=== PATIENT | male | born 1945 | race Caucasian/White ===

== ENCOUNTER 2020-06-13 07:41 | Outpatient (REF) | payer OTHER, SELFPAY ==
[2020-06-13 08:20] LABS: Hematocrit 42.4 % (42-52); Hemoglobin 13.9 g/dl (14.0-18.0); Mean Corpuscular HGB Conc 32.8 g/dl (31.0-36.0); Mean Corpuscular Hemoglobin 30.7 pg (27.0-33.0); Mean Corpuscular Volume 93.6 fL (80-98); Mean Platelet Volume 10.8 fL (9.4-12.4); Platelet Count 148 X10*3/uL (160-400); Red Blood Count 4.53 X10*6/uL (4.60-5.80); Red Cell Distribution Width 12.7 % (11.0-16.0); White Blood Count 6.2 X10*3/uL (4.8-10.8)
[2020-06-13 08:22] LABS: Glucose Urine UA NEG (NEG); Leukocyte Esterase Urine NEG (NEG); Nitrite Urine NEG (NEG); Specific Gravity - Urine 1.025 (1.005-1.025); Urine Blood TRACE (NEG); Urine Ketones NEG (NEG); Urine Protein NEG (NEG-TRACE)
[2020-06-13 08:23] LABS: Appearance Urine CLEAR; Color Urine YELLOW
[2020-06-13 08:33] LABS: RBC Urine 0-2 /HPF (0); WBC Urine 0 /HPF (0-4)
[2020-06-13 08:42] LABS: Alanine Aminotransferase 21 U/L (0-40); Albumin Level 4.1 g/dL (3.5-5.0); Alkaline Phosphatase 62 U/L (39-117); Anion Gap 13 (12-20); Aspartate Amino Transferase 22 U/L (5-37); Bilirubin Direct 0.6 mg/dL (0.0-0.5); Bilirubin Total 1.7 mg/dL (0.0-1.0); Blood Urea Nitrogen 13 mg/dL (9-16); Carbon Dioxide 28 mmol/L (22-29); Chloride 105 mmol/L (96-108); Cholesterol 144 mg/dL; Estimated Glomerular Filt Rate > 60; Glucose Random 110 mg/dL (60-115); HDL Cholesterol 45 mg/dL; LDL Cholesterol Calculated 89 mg/dl; Magnesium 2.2 mg/dL (1.6-2.6); Potassium 4.3 mmol/L (3.3-5.1); Sodium 142 mmol/L (135-145); Total Protein 6.8 g/dL (6.5-8.0); Triglycerides 51 mg/dL
[2020-06-13 09:06] LABS: Thyroid Stimulating Hormone 0.25 uIU/mL (0.32-4.0)
== END 2020-06-13 07:42 | disposition home or self-care (01) ==
LOC: HO.LAB 07:41
PROVIDERS: PCP Internal Medicine; Visit Provider Internal Medicine Cardiovascular Disease
DX: I10 Essential (primary) hypertension (principal); E66.3 Overweight; E78.2 Mixed hyperlipidemia; I48.20 Chronic atrial fibrillation, unspecified
CPT/HCPCS: 36415; 80051; 80061; 80076; 81001; 82565; 82947; 83735; 84443; 84520; 85027

== ENCOUNTER 2021-03-01 07:27 | Outpatient (REF) | payer OTHER, SELFPAY ==
[2021-03-01 07:39] LABS: MANUAL DIFF FLAG NO
[2021-03-01 07:52] LABS: Basophils Percent Auto 0.4 % (0-2); Eosinophils Absolute Auto 0.1 X10*3/uL (0.0-0.4); Eosinophils Percent Auto 1.5 % (0-4); Hematocrit 41.4 % (42.0-52.0); Hemoglobin 13.4 g/dl (14.0-18.0); Imm Gran Abs Auto 0.02 X10*3/uL (0.00-0.03); Imm Gran Pct Auto 0.3 % (0.0-0.4); Lymphocytes Absolute Auto 1.9 X10*3/uL (1.2-4.9); Lymphocytes Percent Auto 26.2 % (20-40); Mean Corpuscular HGB Conc 32.4 g/dl (31.0-36.0); Mean Corpuscular Hemoglobin 30.5 pg (27.0-33.0); Mean Corpuscular Volume 94.3 fL (80.0-98.0); Mean Platelet Volume 10.3 fL (9.4-12.4); Monocytes Absolute Auto 0.6 X10*3/uL (0.1-1.2); Monocytes Percent Auto 8.6 % (2-11); Neutrophils Absolute Auto 4.5 x10*3/uL (2.0-8.3); Platelet Count 147 X10*3/uL (160-400); Red Blood Count 4.39 X10*6/uL (4.60-5.80); White Blood Count 7.1 X10*3/uL (4.8-10.8)
[2021-03-01 08:20] LABS: Alanine Aminotransferase 21 U/L (0-40); Albumin Level 4.3 g/dL (3.5-5.0); Alkaline Phosphatase 61 U/L (39-117); Anion Gap 11 (12-20); Aspartate Amino Transferase 24 U/L (5-37); Bilirubin Total 1.4 mg/dL (0.0-1.0); Blood Urea Nitrogen 17 mg/dL (9-16); Calcium 9.7 mg/dL (8.4-10.2); Carbon Dioxide 30 mmol/L (22-29); Chloride 104 mmol/L (96-108); Cholesterol 161 mg/dL; Estimated Glomerular Filt Rate > 60; Glucose Fasting 105 mg/dL (60-99); HDL Cholesterol 46 mg/dL; LDL Cholesterol Calculated 101 mg/dl; Potassium 4.2 mmol/L (3.3-5.1); Sodium 141 mmol/L (135-145); Total Protein 7.1 g/dL (6.5-8.0); Triglycerides 71 mg/dL
[2021-03-01 08:42] LABS: Free T4 (Free Thyroxine) 1.16 ng/dL (0.71-1.85); Vitamin D 25-OH Total 34.5 ng/mL (>30)
[2021-03-01 09:06] LABS: Appearance Urine CLEAR; Color Urine YELLOW; Glucose Urine UA NEG (NEG); Leukocyte Esterase Urine NEG (NEG); Nitrite Urine NEG (NEG); UACC Culture Trigger NO; Urine Blood TRACE (NEG); Urine Ketones NEG (NEG); Urine Protein NEG (NEG-TRACE)
[2021-03-01 09:21] LABS: RBC Urine 0-2 /HPF (0); WBC Urine 0-2 /HPF (0-4)
== END 2021-03-01 07:28 | disposition home or self-care (01) ==
LOC: HO.LAB 07:27
PROVIDERS: PCP Internal Medicine; Visit Provider Internal Medicine
DX: Z00.00 Encounter for general adult medical examination without abnormal findings (principal); Z12.5 Encounter for screening for malignant neoplasm of prostate; R79.89 Other specified abnormal findings of blood chemistry; N40.1 Benign prostatic hyperplasia with lower urinary tract symptoms; R35.0 Frequency of micturition; I25.10 Atherosclerotic heart disease of native coronary artery without angina pectoris; I48.20 Chronic atrial fibrillation, unspecified; E78.00 Pure hypercholesterolemia, unspecified; E66.9 Obesity, unspecified; E55.9 Vitamin D deficiency, unspecified
CPT/HCPCS: 36415; 80053; 80061; 81001; 82306; 84153; 84439; 84443; 85025

== ENCOUNTER 2022-03-01 08:54 | Outpatient (REF) | payer OTHER, SELFPAY ==
[2022-03-01 09:07] LABS: MANUAL DIFF FLAG NO
[2022-03-01 09:24] LABS: Basophils Percent Auto 0.3 % (0-2); Eosinophils Absolute Auto 0.1 X10*3/uL (0.0-0.4); Hematocrit 41.5 % (42.0-52.0); Hemoglobin 13.3 g/dl (14.0-18.0); Imm Gran Abs Auto 0.02 X10*3/uL (0.00-0.03); Imm Gran Pct Auto 0.3 % (0.0-0.4); Lymphocytes Absolute Auto 1.2 X10*3/uL (1.2-4.9); Mean Corpuscular Hemoglobin 30.3 pg (27.0-33.0); Mean Corpuscular Volume 94.5 fL (80.0-98.0); Monocytes Absolute Auto 0.5 X10*3/uL (0.1-1.2); Monocytes Percent Auto 7.5 % (2-11); Neutrophils Absolute Auto 4.3 x10*3/uL (2.0-8.3); Neutrophils Percent Auto 70.9 % (45-73); Platelet Count 159 X10*3/uL (160-400); Red Blood Count 4.39 X10*6/uL (4.60-5.80); White Blood Count 6.1 X10*3/uL (4.8-10.8)
[2022-03-01 10:55] LABS: Appearance Urine Clear; Color Urine Yellow; Glucose Urine UA Negative (Negative); Leukocyte Esterase Urine Trace (Negative); Nitrite Urine Negative (Negative); PH 5.5 (5.0-9.0); UMIC TRIGGER UACC YES; Urine Blood Large (3+) (Negative); Urine Ketones Trace mg/dL (Negative); Urine Protein Trace mg/dL (Neg-Trace)
[2022-03-01 11:00] LABS: Bacteria Urine None Seen (None Seen); Hyaline Casts Urine 0-2 /LPF (0-2); RBC Urine >20 /HPF (0-2); Squamous Epithelial Cell Urine 0-2 /HPF (0-2); WBC Urine 0-5 /HPF (0-5)
[2022-03-01 11:27] LABS: Alanine Aminotransferase 13 U/L (0-40); Albumin Level 4.2 g/dL (3.5-5.0); Alkaline Phosphatase 59 U/L (39-117); Anion Gap 14 (12-20); Aspartate Amino Transferase 17 U/L (5-37); Bilirubin Total 1.7 mg/dL (0.0-1.0); Blood Urea Nitrogen 12 mg/dL (9-16); Calcium 9.6 mg/dL (8.4-10.2); Carbon Dioxide 29 mmol/L (22-29); Chloride 104 mmol/L (96-108); Cholesterol 150 mg/dL; Estimated Glomerular Filt Rate > 60; Glucose Fasting 103 mg/dL (60-99); HDL Cholesterol 44 mg/dL; LDL Cholesterol Calculated 92 mg/dl; Potassium 4.2 mmol/L (3.3-5.1); Sodium 143 mmol/L (135-145); Total Protein 6.9 g/dL (6.5-8.0); Triglycerides 72 mg/dL; Vitamin D 25-OH Total 38.2 ng/mL (>30)
[2022-03-01 12:04] LABS: Free T4 (Free Thyroxine) 1.16 ng/dL (0.71-1.85)
== END 2022-03-01 08:55 | disposition home or self-care (01) ==
LOC: HO.LAB 08:54
PROVIDERS: PCP Internal Medicine; Visit Provider Internal Medicine
DX: I10 Essential (primary) hypertension (principal); E78.00 Pure hypercholesterolemia, unspecified; E55.9 Vitamin D deficiency, unspecified
CPT/HCPCS: 36415; 80053; 80061; 81001; 82306; 84439; 84443; 85025

== ENCOUNTER 2022-10-20 05:57 | Outpatient (REF) | payer OTHER, SELFPAY ==
[2022-10-20 06:20] LABS: MANUAL DIFF FLAG NO
[2022-10-20 07:11] LABS: Basophils Percent Auto 0.5 % (0-2); Eosinophils Absolute Auto 0.1 X10*3/uL (0.0-0.4); Eosinophils Percent Auto 1.4 % (0-4); Hemoglobin 13.1 g/dl (14.0-18.0); Imm Gran Abs Auto 0.01 X10*3/uL (0.00-0.03); Imm Gran Pct Auto 0.2 % (0.0-0.4); Lymphocytes Absolute Auto 1.5 X10*3/uL (1.2-4.9); Lymphocytes Percent Auto 23.8 % (20-40); Mean Corpuscular HGB Conc 32.8 g/dl (31.0-36.0); Mean Corpuscular Hemoglobin 30.7 pg (27.0-33.0); Mean Corpuscular Volume 93.7 fL (80.0-98.0); Mean Platelet Volume 10.2 fL (9.4-12.4); Monocytes Absolute Auto 0.5 X10*3/uL (0.1-1.2); Monocytes Percent Auto 8.6 % (2-11); Neutrophils Absolute Auto 4.1 x10*3/uL (2.0-8.3); Neutrophils Percent Auto 65.5 % (45-73); Platelet Count 147 X10*3/uL (160-400); Red Blood Count 4.27 X10*6/uL (4.60-5.80); Red Cell Distribution Width 13.1 % (11.0-16.0); White Blood Count 6.3 X10*3/uL (4.8-10.8)
[2022-10-20 07:17] LABS: Estimated Average Glucose 108 mg/dL; Hemoglobin A1c % 5.4 %
[2022-10-20 08:06] LABS: Alanine Aminotransferase 19 U/L (0-40); Albumin Level 4.1 g/dL (3.5-5.0); Alkaline Phosphatase 67 U/L (39-117); Anion Gap 15 (12-20); Aspartate Amino Transferase 22 U/L (5-37); Bilirubin Total 1.7 mg/dL (0.0-1.0); Blood Urea Nitrogen 15 mg/dL (9-16); Calcium 9.5 mg/dL (8.4-10.2); Carbon Dioxide 26 mmol/L (22-29); Chloride 105 mmol/L (96-108); Cholesterol 143 mg/dL; Estimated Glomerular Filt Rate > 60; Glucose Fasting 101 mg/dL (60-99); HDL Cholesterol 51 mg/dL; LDL Cholesterol Calculated 80 mg/dl; Potassium 4.3 mmol/L (3.3-5.1); Sodium 142 mmol/L (135-145); Total Protein 7.1 g/dL (6.5-8.0); Triglycerides 60 mg/dL
[2022-10-20 08:20] LABS: Appearance Urine Clear; Color Urine Yellow; Glucose Urine UA Negative (Negative); Leukocyte Esterase Urine Negative (Negative); Nitrite Urine Negative (Negative); PH 6.5 (5.0-9.0); UMIC TRIGGER UACC YES; Urine Blood Trace (Negative); Urine Ketones Negative (Negative); Urine Protein Negative (Neg-Trace)
[2022-10-20 08:25] LABS: TSH reflex Free T4 0.28 uIU/mL (0.32-4.0)
[2022-10-20 08:35] LABS: Bacteria Urine None Seen (None Seen); Hyaline Casts Urine 0-2 /LPF (0-2); Squamous Epithelial Cell Urine 0-2 /HPF (0-2); WBC Urine 0-5 /HPF (0-5)
[2022-10-20 08:59] LABS: Free T4 (Free Thyroxine) 0.93 ng/dL (0.71-1.85)
== END 2022-10-20 05:58 | disposition home or self-care (01) ==
LOC: HO.LAB 05:57
PROVIDERS: PCP Internal Medicine; Visit Provider Internal Medicine
DX: I10 Essential (primary) hypertension (principal); R79.89 Other specified abnormal findings of blood chemistry; R73.01 Impaired fasting glucose; E78.00 Pure hypercholesterolemia, unspecified
CPT/HCPCS: 36415; 80053; 80061; 81001; 81003; 83036; 84439; 84443; 85025

== ENCOUNTER 2022-10-25 15:01 | Outpatient (AMB) | payer OTHER, SELFPAY ==
[2022-10-25 15:12] VITALS: BP 128/80; PULSE 53; O2SAT 93; BMI 34.8
--- NOTE | 2022-10-25 15:12 | A.OFFPC_ITS ---
Vital Signs 10/25/22 15:12 Height 5 ft 9 in Weight 235 lb 6 oz BMI 34.8 BP 128/80 Blood Pressure Location Lt brachial Position Sitting Pulse 53 Pulse Source Pulse Oximeter Pulse Oximetry (%) 93 Oxygen Delivery Method Room Air Intake Visit Reasons: 4 month f/u Insurance Legal Assistant Required: No Accompanied by: Self / Same As Patient Allergies No Known Allergies Allergy (Verified 10/25/22 15:42) Medication List - Last Reconciled 10/25/22 by Drew Mitchell MD apixaban 5 mg PO BID aspirin 81 mg PO DAILY metoprolol succinate ER 50 mg PO DAILY simvastatin 10 mg PO BEDTIME 90 days terazosin 5 mg PO DAILY 90 days Tobacco use date assessed: 10/25/22 Fall risk assessment: No Falls in past year Last assessed Fall Risk: 10/25/22 Dental Screening Dental Screen Date: 10/25/22 Did you have a dental visit in the last 12 months?: No Did you have a dental problem in the last 6 months where you did not have access to dental care?: No Was dental information given to patient?: No HPI 4 month f/u HPI Details Patient comes in today for his follow up visit States that he feels okay He denies any headaches or dizziness Denies any chest pains, no SOB No nausea/vomiting, no abdominal pain No change in bowel habits noted Needs his Simvastatin Rx refilled today Had his follow up labs done a few days ago - to discuss his results [facility] Medical History Aneurysm of the aortic arch, without rupture Arthralgia Benign prostatic hyperplasia with urinary frequency Chronic atrial fibrillation Coronary artery disease Erectile dysfunction Low TSH level Normal colonoscopy (~04/23/08) Obesity (BMI 30-39.9) Pure hypercholesterolemia Sick sinus syndrome Ureterolithiasis Vitamin D deficiency Surgical History Hx of colonoscopy (~04/2008) Hx of right inguinal hernia repair (~10/2015) S/P ICD (internal cardiac defibrillator) procedure Status post endovascular aneurysm repair (EVAR) (~01/18/22) Family History Mother Hypertension Father Kidney problem Social History Housing: House Alcohol intake: former Patient Tobacco Use Status: Never used Tobacco e-Cigarette/Vaping Use: Never Used Second Hand Smoke Exposure: Yes service: No Current occupational status: employed 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 1. Little interest or pleasure in doing things: not at all 2. Feeling down, depressed, or hopeless: not at all 3. Trouble falling or staying asleep, or sleeping too much: not at all 4. Feeling tired or having little energy: not at all 5. Poor appetite or overeating: not at all 6. Feeling bad about yourself - or that you are a failure or have let yourself or your family down: not at all 7. Trouble concentrating on things, such as reading the newspaper or watching television: not at all 8. Moving or speaking so slowly that other people could have noticed. Or the opposite - being so fidgety or restless that you have been moving around a lot more than usual: not at all 9. Thoughts that you would be better off or of hurting yourself in some way: not at all Total score: 0 Depression Screening Interpretation: Negative 38142 - PHQ-9 Billing: Yes Source: Developed by Drs. Kimani Hugo, Joleen Hardwick, Darryl Edward and colleagues, with an educational remington from [employer]. Thrive Questionnaire Date Thrive assessed: 06/24/22 I am a: Patient What is your living situation today?: I have a steady place to live Within the past 12 months, did the food you bought not last and you didn't have the money to get more?: Never true Within the past 12 months, did you worry whether your food would run out before you got money to buy more?: Never true Do you have trouble paying for medicines?: No Do you have trouble getting transportation to medical appointments?: No Do you have trouble paying your heating and electricity bill?: No Do you have trouble taking care of your child, family member or friend?: No Do you have trouble with day-to-day activities such as bathing, preparing meals, shopping, managing finances, etc.?: No Are you currently unemployed and looking for a job?: No Are you interested in more education?: No Please select the resources that you would like help with: None Currently or been in a relationship where the following occur: no concerns reported AUDIT C Alcohol Use Questionnaire (AUDIT-C) 1. How often do you have a drink containing alcohol?: Never Total Score: 0 Score Reviewed/Action Taken: Yes RUTH ANN-7 AMB Questionnaire RUTH ANN-7 Date RUTH ANN - 7 assessed: 10/25/22 Feeling nervous, anxious, or on edge: 0 = Not at all Not being able to stop or control worryin = Not at all Worrying too much about different things: 0 = Not at all Trouble relaxin = Not at all Being so restless that it is hard to sit still: 0 = Not at all Becoming easily annoyed or irritable: 0 = Not at all Feeling afraid as if something awful might happen: 0 = Not at all Total RUTH ANN-7 score (0-4 normal; 5-9 mild; 10-14 moderate; 15-21 severe): 0 Source: Developed by Drs. Kimani Hugo, Joleen Hardwick, Darryl Edward and colleagues, with an educational remington from [employer]. Review of Systems Const Denies fatigue, Denies fever(s) and Denies headache(s) ENT Denies dysphagia, Denies dizziness, Denies otalgia, Denies headache(s), Denies neck pain and Denies sore throat Card Denies chest pain, Denies palpitations and Denies dyspnea Resp Denies cough, Denies dyspnea and Denies wheezing GI Denies abdominal pain, Denies constipation, Denies dysphagia, Denies heartburn, Denies diarrhea, Denies nausea and Denies vomiting Denies hematuria, Denies dysuria and Reports urinary frequency (Rx helps) Musc Details: (+) some stiffness over the left neck area (at the base) - this is where he had his left carotid bypass last year Denies back pain, Denies arthralgias and Denies neck pain Skin/Breast Denies rash Neuro Denies dizziness and Denies headache(s) Endo Denies fatigue and Denies palpitations Aller/Immun Denies wheezing Physical exam (Primary Care) Vital Signs: Last Vital Signs Pulse 53 10/25/22 15:12 BP 128/80 10/25/22 15:12 Pulse Ox 93 10/25/22 15:12 Oxygen Delivery Method Room Air 10/25/22 15:12 BMI result Body Mass Index 34.8 Tobacco/Smoking Status: Tobacco use Status Tobacco use date assessed 10/25/22 10/25/22 15:20 Patient Tobacco Use Status Never used Tobacco 10/25/22 15:20 e-Cigarette/Vaping Use Never Used 10/25/22 15:20 PHQ-9: PHQ-9 Score PHQ-9: Total score 0 10/25/22 15:20 Depression Screening Interpretation: Negative Thrive Assessment: Date of Thrive Assessment Date Thrive assessed 06/24/22 10/25/22 15:20 Currently or been in a relationship where the following occur: no concerns repor mariaa Const General: no acute distress and alert HENMT Ears: TM's normal bilaterally and EAC's normal Throat: Yes posterior oropharynx normal and Yes tonsils normal Neck Neck: Yes no lymphadenopathy and Yes supple Resp Auscultation: clear to auscultation bilaterally, no rales and no wheezes Cardio Rate: regular rate Rhythm: abnormal rhythm irregularly irregular Heart sounds: no murmurs GI Palpation (GI): Soft to palpation and nontender Auscultation: normal bowel sounds Extrem General: Yes no clubbing, cyanosis or edema Results Reviewed Results Reviewed: Laboratory Tests 10/20/22 10/20/22 10/20/22 06:19 06:19 06:19 WBC 6.3 Hgb 13.1 L Hct 40.0 L Plt Count 147 L Sodium 142 Potassium 4.3 Creatinine 0.86 Estimated GFR > 60 Fasting Glucose 101 H Hemoglobin A1c % 5.4 Calcium 9.5 Total Bilirubin 1.7 H AST 22 ALT 19 Triglycerides 60 Cholesterol 143 LDL Cholesterol, Calc 80 HDL Cholesterol 51 TSH 0.28 L Free T4 0.93 Ur Specific [place] Urine Protein Urine Glucose (UA) Urine Blood 10/20/22 07:42 WBC Hgb Hct Plt Count Sodium Potassium Creatinine Estimated GFR Fasting Glucose Hemoglobin A1c % Calcium Total Bilirubin AST ALT Triglycerides Cholesterol LDL Cholesterol, Calc HDL Cholesterol TSH Free T4 Ur Specific [place] 1.010 Urine Protein Negative Urine Glucose (UA) Negative Urine Blood Trace H Assessment and Plan Assessment & Plan (1) Aneurysm of the aortic arch, without rupture: Comment: S/P left carotid-subclavian bypass and TEVAR repair of the aortic arch aneurysm plus stent graft by Aj on 01/18/2022 Code(s): I71.22 - Aneurysm of the aortic arch, without rupture Plan: S/P aortic arch aneurysm repair with stent graft in January 2022 Will be getting a repeat chest CT angiogram in about 6 months for follow up Follow up with vascular and cardiac surgery as scheduled Continue Aspirin 81 mg QD indefinitely (2) Coronary artery disease: Code(s): I25.10 - Atherosclerotic heart disease of [place] coronary artery without angina pectoris Qualifiers: Coronary Disease-Associated Artery/Lesion type: [place] artery [place] vs. transplanted heart: [place] heart Associated angina: without angina Qualified Code(s): I25.10 - Atherosclerotic heart disease of [place] coronary artery without angina pectoris Plan: Follow up with cardiology at [facility] as scheduled Continue Aspirin 81 mg QD (3) Chronic atrial fibrillation: Comment: S/P ICD placement; is currently rate-controlled Code(s): I48.20 - Chronic atrial fibrillation, unspecified Plan: Patient remains rate-controlled and asymptomatic from cardiac standpoint Continue Metoprolol ER 50 mg QD Continue Eliquis 5 mg BID for thromboembolism prophylaxis (4) Pure hypercholesterolemia: Code(s): E78.00 - Pure hypercholesterolemia, unspecified Plan: Results of his labs done a few days ago reviewed and discussed with patient Reinforced low cholesterol diet Continue Simvastatin 10 mg QD - Rx refilled Will recheck his labs again in 4 months for follow up (5) Vitamin D deficiency: Code(s): E55.9 - Vitamin D deficiency, unspecified Plan: Continue Vitamin D3 1000 units QD (6) Low TSH level: Code(s): R79.89 - Other specified abnormal findings of blood chemistry Plan: Patient's serum TSH level is again low/suppressed on his recent labs; free T4 level is normal Patient appears clinically euthyroid and his thyroid exam is normal with no nodu les palpated Will recheck TSH and free T4 level in 4 months; will also include total T3 If TSH is still significantly suppressed in a few months, will consider getting a thyroid scan on the patient (7) Erectile dysfunction: Code(s): N52.9 - Male erectile dysfunction, unspecified Qualifiers: Erectile dysfunction type: unspecified Qualified Code(s): N52.9 - Male erectile dysfunction, unspecified Plan: Continue Sildenafil 50 mg QD PRN Serum testosterone level was normal at 669 when checked back in September 2018 (8) Benign prostatic hyperplasia with urinary frequency: Code(s): N40.1 - Benign prostatic hyperplasia with lower urinary tract symptoms; R35.0 - Frequency of micturition Plan: Continue Terazosin 5 mg Q HS Follow up with urology as scheduled (9) Obesity (BMI 30-39.9): Code(s): E66.9 - Obesity, unspecified Plan: Reinforced diet/exercise as tolerated/lose weight Plan Follow up in 4 months Orders: Orders Comprehensive [place]. Panel Fast 4 Months E78.00 - Pure hypercholesterolemia, unspecified Lipid Panel 4 Months E78.00 - Pure hypercholesterolemia, unspecified Complete Blood Count Auto Diff 4 Months I10 - Essential (primary) hypertension TSH reflex Free T4 4 Months E78.00 - Pure hypercholesterolemia, unspecified Vitamin D 25-OH Total 4 Months E55.9 - Vitamin D deficiency, unspecified UA CC w/rflx Micro + Cult 4 Months R30.0 - Dysuria Triiodothyronine T3 Total 4 Months R79.89 - Other specified abnormal findings of blood chemistry Medications: Refilled simvastatin 10 mg PO BEDTIME 90 days 90 tabs 1RF Coding Level of Care Code Est Pt Level 4 (54150) Diagnoses Aneurysm of the aortic arch, without rupture I71.22 Coronary artery disease I25.10 Coronary Disease-Associated Artery/Lesion type: [place] artery [place] vs. transplanted heart: [place] heart Associated angina: without angina Chronic atrial fibrillation I48.20 Pure hypercholesterolemia E78.00 Vitamin D deficiency E55.9 Low TSH level R79.89 Erectile dysfunction N52.9 Erectile dysfunction type: unspecified Benign prostatic hyperplasia with urinary frequency N40.1; R35.0 Obesity (BMI 30-39.9) E66.9
== END 2022-10-25 15:47 | disposition home or self-care (01) ==
PROVIDERS: PCP Internal Medicine; Visit Provider Internal Medicine
DX: I71.22 Aneurysm of the aortic arch, without rupture (principal); I25.10 Atherosclerotic heart disease of native coronary artery without angina pectoris; I48.20 Chronic atrial fibrillation, unspecified; E55.9 Vitamin D deficiency, unspecified; E78.00 Pure hypercholesterolemia, unspecified; R79.89 Other specified abnormal findings of blood chemistry; N52.9 Male erectile dysfunction, unspecified; N40.1 Benign prostatic hyperplasia with lower urinary tract symptoms; R35.0 Frequency of micturition; E66.9 Obesity, unspecified
CPT/HCPCS: 99214

== ENCOUNTER 2023-03-03 15:15 | Outpatient (AMB) | payer OTHER, SELFPAY ==
[2023-03-03 15:27] VITALS: BP 116/70; PULSE 69; O2SAT 94; BMI 34.9
--- NOTE | 2023-03-03 15:27 | MHC.PC.OV ---
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 Accompanied by: Self / Same As Patient Allergies No Known Allergies Allergy (Verified 03/03/23 16:38) Medication List - Last Reconciled 03/03/23 by Drew Mitchell MD apixaban 5 mg PO BID aspirin 81 mg PO DAILY metoprolol succinate ER 50 mg PO DAILY simvastatin 10 mg PO BEDTIME 90 days terazosin 5 mg PO DAILY 90 days Tobacco use date assessed: 03/03/23 Fall risk assessment: No Falls in past year Last assessed Fall Risk: 03/03/23 Dental Screening Dental Screen Date: 03/03/23 Did you have a dental visit in the last 12 months?: No Did you have a dental problem in the last 6 months where you did not have access to dental care?: No Was dental information given to patient?: No HPI hyperlipidemia, CAD HPI Details Patient comes in today for his follow up visit States that he feels okay and has not had any problems since his last visit with me a few months ago States that he has been back to work for a while now - 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 - and that he has been doing fairly well at work He denies any headaches or dizziness Denies any chest pains, no SOB No nausea/vomiting, no abdominal pain No change in bowel habits noted Was not able to get his previously ordered labs done prior to his visit today [facility] Medical History Aneurysm of the aortic arch, without rupture Normal colonoscopy (~04/23/08) Sick sinus syndrome Obesity (BMI 30-39.9) Benign prostatic hyperplasia with urinary frequency Erectile dysfunction Vitamin D deficiency Arthralgia Ureterolithiasis Low TSH level Pure hypercholesterolemia Chronic atrial fibrillation Coronary artery disease Surgical History Status post endovascular aneurysm repair (EVAR) (~01/18/22) Hx of colonoscopy (~04/2008) S/P ICD (internal cardiac defibrillator) procedure Hx of right inguinal hernia repair (~10/2015) Family History Mother Hypertension Father Kidney problem Social History Housing: House Alcohol intake: former Patient Tobacco Use Status: Never used Tobacco e-Cigarette/Vaping Use: Never Used Second Hand Smoke Exposure: Yes service: No Current occupational status: employed 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 1. Little interest or pleasure in doing things: not at all 2. Feeling down, depressed, or hopeless: not at all 3. Trouble falling or staying asleep, or sleeping too much: not at all 4. Feeling tired or having little energy: not at all 5. Poor appetite or overeating: not at all 6. Feeling bad about yourself - or that you are a failure or have let yourself or your family down: not at all 7. Trouble concentrating on things, such as reading the newspaper or watching television: not at all 8. Moving or speaking so slowly that other people could have noticed. Or the opposite - being so fidgety or restless that you have been moving around a lot more than usual: not at all 9. Thoughts that you would be better off or of hurting yourself in some way: not at all Total score: 0 Depression Screening Interpretation: Negative Depression Screening Done: Yes 12931 - PHQ-9 Billing: Yes Source: Developed by Drs. Kimani Hugo, Joleen Hardwick, Darryl Edward and colleagues, with an educational remington from [employer]. Thrive Questionnaire Date Thrive assessed: 03/03/23 I am a: Patient What is your living situation today?: I have a steady place to live Within the past 12 months, did the food you bought not last and you didn't have the money to get more?: Never true Within the past 12 months, did you worry whether your food would run out before you got money to buy more?: Never true Do you have trouble paying for medicines?: No Do you have trouble getting transportation to medical appointments?: No Do you have trouble paying your heating and electricity bill?: No Do you have trouble taking care of your child, family member or friend?: No Do you have trouble with day-to-day activities such as bathing, preparing meals, shopping, managing finances, etc.?: No Are you currently unemployed and looking for a job?: No Are you interested in more education?: No Please select the resources that you would like help with: None Currently or been in a relationship where the following occur: no concerns reported AUDIT C Alcohol Use Questionnaire (AUDIT-C) 1. How often do you have a drink containing alcohol?: Never Total Score: 0 Score Reviewed/Action Taken: Yes RUTH ANN-7 AMB Questionnaire RUTH ANN-7 Date RUTH ANN - 7 assessed: 03/03/23 Feeling nervous, anxious, or on edge: 0 = Not at all Not being able to stop or control worryin = Not at all Worrying too much about different things: 0 = Not at all Trouble relaxin = Not at all Being so restless that it is hard to sit still: 0 = Not at all Becoming easily annoyed or irritable: 0 = Not at all Feeling afraid as if something awful might happen: 0 = Not at all Total RUTH ANN-7 score (0-4 normal; 5-9 mild; 10-14 moderate; 15-21 severe): 0 Source: Developed by Drs. Kimani Hugo, Joleen Hardwick, Darryl Edward and colleagues, with an educational remington from [employer]. Review of Systems Const Denies fatigue, Denies fever(s) and Denies headache(s) ENT Denies dysphagia, Denies dizziness, Denies otalgia, Denies headache(s), Denies neck pain, Denies odynophagia and Denies sore throat Card Denies chest pain, Denies palpitations and Denies dyspnea Resp Denies cough, Denies dyspnea and Denies wheezing GI Denies abdominal pain, Denies constipation, Denies dysphagia, Denies heartburn, Denies diarrhea, Denies nausea, Denies odynophagia and Denies vomiting Denies hematuria, Denies dysuria and Reports urinary frequency (Rx helping with symptoms) Musc Denies back pain, Denies arthralgias and Denies neck pain Skin/Breast Denies rash Neuro Denies dizziness and Denies headache(s) Endo Denies fatigue and Denies palpitations Aller/Immun Denies wheezing Physical exam (Primary Care) Vital Signs: Last Vital Signs Pulse 69 03/03/23 15:27 BP 116/70 03/03/23 15:27 Pulse Ox 94 03/03/23 15:27 Oxygen Delivery Method Room Air 03/03/23 15:27 BMI result Body Mass Index 34.9 Tobacco/Smoking Status: Tobacco use Status Tobacco use date assessed 03/03/23 03/03/23 15:36 Patient Tobacco Use Status Never used Tobacco 03/03/23 15:36 e-Cigarette/Vaping Use Never Used 03/03/23 15:36 PHQ-9: PHQ-9 Score PHQ-9: Total score 0 03/03/23 16:41 Depression Screening Interpretation: Negative Thrive Assessment: Date of Thrive Assessment Date Thrive assessed 03/03/23 03/03/23 15:36 Currently or been in a relationship where the following occur: no concerns reported Const General: no acute distress and alert HENMT Ears: TM's normal bilaterally and EAC's normal Throat: Yes posterior oropharynx normal and Yes tonsils normal Neck Neck: Yes no lymphadenopathy and Yes supple Resp Auscultation: clear to auscultation bilaterally, no rales and no wheezes Cardio Rate: regular rate Rhythm: abnormal rhythm irregularly irregular Heart sounds: no murmurs GI Palpation (GI): Soft to palpation and nontender Auscultation: normal bowel sounds Extrem General: Yes no clubbing, cyanosis or edema Assessment and Plan Assessment & Plan (1) Aneurysm of the aortic arch, without rupture: Comment: S/P left carotid-subclavian bypass and TEVAR repair of the aortic arch aneurysm plus stent graft by [facility]o on 01/18/2022 Code(s): I71.22 - Aneurysm of the aortic arch, without rupture Plan: S/P aortic arch aneurysm repair with stent graft in January 2022 Is supposed to get a repeat chest CT angiogram in about 6 months for follow up Follow up with vascular and cardiac surgery as scheduled Continue Aspirin 81 mg QD lifetime (2) Coronary artery disease: Code(s): I25.10 - Atherosclerotic heart disease of [place] coronary artery without angina pectoris Qualifiers: Coronary Disease-Associated Artery/Lesion type: [place] artery [place] vs. transplanted heart: [place] heart Associated angina: without angina Qualified Code(s): I25.10 - Atherosclerotic heart disease of [place] coronary artery without angina pectoris Plan: Follow up with cardiology at [facility] as scheduled Continue Aspirin 81 mg QD (3) Chronic atrial fibrillation: Comment: S/P ICD placement; is currently rate-controlled Code(s): I48.20 - Chronic atrial fibrillation, unspecified Plan: Patient remains rate-controlled and asymptomatic from a cardiac standpoint Continue Metoprolol ER 50 mg QD Continue Eliquis 5 mg BID for thromboembolism prophylaxis (4) Pure hypercholesterolemia: Code(s): E78.00 - Pure hypercholesterolemia, unspecified Plan: Was not able to get his previously ordered labs done recently Reinforced low cholesterol diet Continue Simvastatin 10 mg QD Will recheck his labs again in 4 months for follow up - will just have patient use his current orders (updated) for his next lab draw (5) Vitamin D deficiency: Code(s): E55.9 - Vitamin D deficiency, unspecified Plan: Continue Vitamin D3 1000 units QD (6) Low TSH level: Code(s): R79.89 - Other specified abnormal findings of blood chemistry Plan: Patient's serum TSH level was again low/suppressed on his most recent labs from a few months ago; free T4 level was normal Patient appeared clinically euthyroid and his thyroid exam was normal with no nodules palpated Will recheck his TSH and free T4 level in 4 months; will also include total T3 If his TSH is still significantly suppressed in a few months, will consider getting a thyroid scan on the patient (7) Erectile dysfunction: Code(s): N52.9 - Male erectile dysfunction, unspecified Qualifiers: Erectile dysfunction type: unspecified Qualified Code(s): N52.9 - Male erectile dysfunction, unspecified Plan: Continue Sildenafil 50 mg QD PRN Serum testosterone level was normal at 669 when checked back in September 2018 (8) Benign prostatic hyperplasia with urinary frequency: Code(s): N40.1 - Benign prostatic hyperplasia with lower urinary tract symptoms; R35.0 - Frequency of micturition Plan: Continue Terazosin 5 mg Q HS Follow up with urology as scheduled (9) Obesity (BMI 30-39.9): Code(s): E66.9 - Obesity, unspecified Plan: Reinforced diet/exercise as tolerated/lose weight Plan Follow up in 4 months Coding Level of Care Code Est Pt Level 3 (94456) Diagnoses Aneurysm of the aortic arch, without rupture I71.22 Coronary artery disease involving [place] coronary artery of [place] heart without angina pectoris I25.10 Coronary Disease-Associated Artery/Lesion type: [place] artery [place] vs. transplanted heart: [place] heart Associated angina: without angina Chronic atrial fibrillation I48.20 Pure hypercholesterolemia E78.00 Vitamin D deficiency E55.9 Low TSH level R79.89 Erectile dysfunction, unspecified erectile dysfunction type N52.9 Erectile dysfunction type: unspecified Benign prostatic hyperplasia with urinary frequency N40.1; R35.0 Obesity (BMI 30-39.9) E66.9
== END 2023-03-03 16:08 | disposition home or self-care (01) ==
PROVIDERS: PCP Internal Medicine; Visit Provider Internal Medicine
DX: I71.22 Aneurysm of the aortic arch, without rupture (principal); I48.20 Chronic atrial fibrillation, unspecified; E66.9 Obesity, unspecified; Z68.34 Body mass index [BMI] 34.0-34.9, adult; I25.10 Atherosclerotic heart disease of native coronary artery without angina pectoris; E78.00 Pure hypercholesterolemia, unspecified; E55.9 Vitamin D deficiency, unspecified; R79.89 Other specified abnormal findings of blood chemistry; N52.9 Male erectile dysfunction, unspecified; N40.1 Benign prostatic hyperplasia with lower urinary tract symptoms; R35.0 Frequency of micturition
CPT/HCPCS: 99213

== ENCOUNTER 2023-07-07 15:11 | Outpatient (AMB) | payer OTHER, SELFPAY ==
[2023-07-07 15:12] VITALS: BP 112/60; PULSE 49; O2SAT 95; BMI 34.7
--- NOTE | 2023-07-07 15:12 | A.OFFPC_ITS ---
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 Allergies No Known Allergies Allergy (Verified 07/07/23 15:49) Medication List - Last Reconciled 07/07/23 by Drew Mitchell MD apixaban 5 mg PO BID aspirin 81 mg PO DAILY metoprolol succinate ER 50 mg PO DAILY simvastatin 10 mg PO BEDTIME 90 days terazosin 5 mg PO DAILY 90 days Tobacco use date assessed: 07/07/23 Fall risk assessment: No Falls in past year Last assessed Fall Risk: 07/07/23 Dental Screening Dental Screen Date: 07/07/23 HPI CAD, hyperlipidemia, HTN HPI Details Patient comes in today for his follow up visit States that he has been experiencing sore throat, malaise and increased fatigue as well as nasal and sinus congestion for the past 3 days Reports that he has been coughing a lot lately - coughs up some greenish phlegm at times He denies any headaches or dizziness Denies any chest pains, no increased SOB although his chest feels congested lately No nausea/vomiting, no abdominal pain No change in bowel habits noted He has not had his follow up labs done yet - states that he can try to get them done tomorrow [facility] Medical History Aneurysm of the aortic arch, without rupture Normal colonoscopy (~04/23/08) Sick sinus syndrome Obesity (BMI 30-39.9) Benign prostatic hyperplasia with urinary frequency Erectile dysfunction Vitamin D deficiency Arthralgia Ureterolithiasis Low TSH level Pure hypercholesterolemia Chronic atrial fibrillation Coronary artery disease Surgical History Status post endovascular aneurysm repair (EVAR) (~01/18/22) Hx of colonoscopy (~04/2008) S/P ICD (internal cardiac defibrillator) procedure Hx of right inguinal hernia repair (~10/2015) Family History Mother Hypertension Father Kidney problem Social History Housing: House Alcohol intake: former Patient Tobacco Use Status: Never used Tobacco e-Cigarette/Vaping Use: Never Used Second Hand Smoke Exposure: Yes service: No Current occupational status: employed 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 1. Little interest or pleasure in doing things: not at all 2. Feeling down, depressed, or hopeless: not at all 3. Trouble falling or staying asleep, or sleeping too much: not at all 4. Feeling tired or having little energy: not at all 5. Poor appetite or overeating: not at all 6. Feeling bad about yourself - or that you are a failure or have let yourself or your family down: not at all 7. Trouble concentrating on things, such as reading the newspaper or watching television: not at all 8. Moving or speaking so slowly that other people could have noticed. Or the opposite - being so fidgety or restless that you have been moving around a lot more than usual: not at all 9. Thoughts that you would be better off or of hurting yourself in some way: not at all Total score: 0 Depression Screening Interpretation: Negative Depression Screening Done: Yes 52728 - PHQ-9 Billing: Yes Source: Developed by Drs. Kimani Hugo, Joleen Hardwick, Darryl Edward and colleagues, with an educational remington from [employer]. Thrive Questionnaire Date Thrive assessed: 07/07/23 I am a: Patient What is your living situation today?: I have a steady place to live Within the past 12 months, did the food you bought not last and you didn't have the money to get more?: Never true Within the past 12 months, did you worry whether your food would run out before you got money to buy more?: Never true Do you have trouble paying for medicines?: No Do you have trouble getting transportation to medical appointments?: No Do you have trouble paying your heating and electricity bill?: No Do you have trouble taking care of your child, family member or friend?: No Do you have trouble with day-to-day activities such as bathing, preparing meals, shopping, managing finances, etc.?: No Are you currently unemployed and looking for a job?: No Are you interested in more education?: No Please select the resources that you would like help with: None Currently or been in a relationship where the following occur: no concerns reported THRIVE Score: 0 AUDIT C Alcohol Use Questionnaire (AUDIT-C) 1. How often do you have a drink containing alcohol?: Never 3. How often do you have six or more drinks on one occasion?: Never Total Score: 0 Score Reviewed/Action Taken: Yes RUTH ANN-7 AMB Questionnaire RUTH ANN-7 Date RUTH ANN - 7 assessed: 07/07/23 Source: Developed by Drs. Kimani Hugo, Joleen Hardwick, Darryl Edward and colleagues, with an educational remington from [employer]. Review of Systems Const Denies chills, Reports fatigue, Denies fever(s), Denies headache(s) and Reports malaise ENT Denies dysphagia, Denies dizziness, Denies otalgia, Denies headache(s), Reports nasal congestion, Denies neck pain, Denies odynophagia, Denies sinus pain and Reports sore throat Card Denies chest pain, Denies palpitations and Denies dyspnea Resp Reports chest congestion, Reports cough (recurrent lately - coughs up thick greenish phlegm), Denies dyspnea and Denies wheezing GI Denies abdominal pain, Denies constipation, Denies dysphagia, Denies heartburn, Denies diarrhea, Denies nausea, Denies odynophagia and Denies vomiting Denies hematuria, Denies dysuria and Reports urinary frequency (Rx helps with symptoms) Musc Denies back pain, Reports myalgias, Denies arthralgias and Denies neck pain Skin/Breast Denies rash Neuro Denies dizziness and Denies headache(s) Endo Reports fatigue and Denies palpitations Aller/Immun Denies wheezing Physical exam (Primary Care) Vital Signs: Last Vital Signs Pulse 49 L 07/07/23 15:12 BP 112/60 07/07/23 15:12 Pulse Ox 95 07/07/23 15:12 Oxygen Delivery Method Room Air 07/07/23 15:12 BMI result Body Mass Index 34.7 Tobacco/Smoking Status: Tobacco use Status Tobacco use date assessed 07/07/23 07/07/23 15:14 Patient Tobacco Use Status Never used Tobacco 07/07/23 15:14 e-Cigarette/Vaping Use Never Used 07/07/23 15:14 Depression Screening Interpretation: Negative Thrive Assessment: Date of Thrive Assessment Date Thrive assessed 07/07/23 07/07/23 15:14 Currently or been in a relationship where the following occur: no concerns reported Const General: no acute distress and alert HENMT Ears: TM's normal bilaterally and EAC's normal Throat: Yes tonsils normal and Yes posterior oropharynx abnormal ((+) erythema of the posterior pharynx) Neck Neck: Yes no lymphadenopathy and Yes supple Thyroid: Thyroid normal Resp Auscultation: no crackles, no rales, rhonchi (occasional) throughout, no wheezes and diminished lung sounds (slightly) bilateral Cardio Rate: regular rate Rhythm: abnormal rhythm irregularly irregular Heart sounds: no murmurs GI Palpation (GI): Soft to palpation and nontender Auscultation: normal bowel sounds General: Yes no CVA tenderness Back/Spine/Pelvis Back: no CVA tenderness Skin Rashes: no rashes Extrem General: Yes no clubbing, cyanosis or edema Assessment and Plan Assessment & Plan (1) Respiratory tract infection: Code(s): J98.8 - Other specified respiratory disorders Plan: Will send patient to the lab to check for serologies (flu/RSV/COVID) for further evaluation Will start him empirically on Azithromycin QD x 5 days for now (2) Aneurysm of the aortic arch, without rupture: Comment: S/P left carotid-subclavian bypass and TEVAR repair of the aortic arch aneurysm plus stent graft by Aj on 01/18/2022 Code(s): I71.22 - Aneurysm of the aortic arch, without rupture Plan: S/P aortic arch aneurysm repair with stent graft in January 2022 He was supposed to get a repeat chest CT angiogram in about 6 months for follow up - not sure if his business continuity coordinator did or not and patient could not tell us also (states that he does not remember) Follow up with vascular and cardiac surgery as scheduled Continue Aspirin 81 mg QD lifetime (3) Coronary artery disease: Code(s): I25.10 - Atherosclerotic heart disease of [place] coronary artery without angina pectoris Qualifiers: Coronary Disease-Associated Artery/Lesion type: [place] artery [place] vs. transplanted heart: [place] heart Associated angina: without angina Qualified Code(s): I25.10 - Atherosclerotic heart disease of [place] coronary artery without angina pectoris Plan: Follow up with cardiology at [facility] as scheduled Continue Aspirin 81 mg QD (4) Chronic atrial fibrillation: Comment: S/P ICD placement; is currently rate-controlled Code(s): I48.20 - Chronic atrial fibrillation, unspecified Plan: Patient remains rate-controlled and asymptomatic from a cardiac standpoint Continue Metoprolol ER 50 mg QD Continue Eliquis 5 mg BID for thromboembolism prophylaxis (5) Pure hypercholesterolemia: Code(s): E78.00 - Pure hypercholesterolemia, unspecified Plan: He is still not able to get his previously ordered labs done recently - have advised him to get these done JODEE States that he will go tomorrow morning Reinforced low cholesterol diet Continue Simvastatin 10 mg QD Will recheck his labs and fasting lipids again in 4 months for follow up (6) Vitamin D deficiency: Code(s): E55.9 - Vitamin D deficiency, unspecified Plan: Continue Vitamin D3 1000 units QD (7) Low TSH level: Code(s): R79.89 - Other specified abnormal findings of blood chemistry Plan: Patient's serum TSH level was again low/suppressed when checked last year; free T4 level was normal Patient appeared clinically euthyroid and his thyroid exam was normal with no nodules palpated Will recheck his TSH and free T4 level and will also include total T3 If his TSH is still significantly suppressed, will consider getting a thyroid scan (8) Erectile dysfunction: Code(s): N52.9 - Male erectile dysfunction, unspecified Qualifiers: Erectile dysfunction type: unspecified Qualified Code(s): N52.9 - Male erectile dysfunction, unspecified Plan: Continue Sildenafil 50 mg QD PRN Serum testosterone level was normal at 669 when checked back in September 2018 (9) Benign prostatic hyperplasia with urinary frequency: Code(s): N40.1 - Benign prostatic hyperplasia with lower urinary tract symptoms; R35.0 - Frequency of micturition Plan: Continue Terazosin 5 mg Q HS Follow up with urology as scheduled (10) Obesity (BMI 30-39.9): Code(s): E66.9 - Obesity, unspecified Plan: Reinforced diet/exercise as tolerated/lose weight Plan Follow up in 4 months Orders: Orders Complete Blood Count Auto Diff 4 Months D64.9 - Anemia, unspecified Comprehensive [place]. Panel Fast 4 Months E78.00 - Pure hypercholesterolemia, unspecified SARS-CoV2/FLU/RSV Today J98.8 - Other specified respiratory disorders Lipid Panel 4 Months E78.00 - Pure hypercholesterolemia, unspecified Thyroid Stimulating Hormone 4 Months R79.89 - Other specified abnormal findings of blood chemistry Free T4 (Free Thyroxine) 4 Months R79.89 - Other specified abnormal findings of blood chemistry Medications: New azithromycin take 500 mg today (day 1), then 250 mg for 4 days (days 2-5) PO 6 tabs 0RF Coding Level of Care Code Est Pt Level 4 (01691) Diagnoses Respiratory tract infection J98.8 Aneurysm of the aortic arch, without rupture I71.22 Coronary artery disease involving [place] coronary artery of [place] heart without angina pectoris I25.10 Coronary Disease-Associated Artery/Lesion type: [place] artery [place] vs. transplanted heart: [place] heart Associated angina: without angina Chronic atrial fibrillation I48.20 Pure hypercholesterolemia E78.00 Vitamin D deficiency E55.9 Low TSH level R79.89 Erectile dysfunction, unspecified erectile dysfunction type N52.9 Erectile dysfunction type: unspecified Benign prostatic hyperplasia with urinary frequency N40.1; R35.0 Obesity (BMI 30-39.9) E66.9
== END 2023-07-07 15:55 | disposition home or self-care (01) ==
PROVIDERS: PCP Internal Medicine; Visit Provider Internal Medicine
DX: J98.8 Other specified respiratory disorders (principal); I71.22 Aneurysm of the aortic arch, without rupture; I25.10 Atherosclerotic heart disease of native coronary artery without angina pectoris; I48.20 Chronic atrial fibrillation, unspecified; E78.00 Pure hypercholesterolemia, unspecified; E55.9 Vitamin D deficiency, unspecified; R79.89 Other specified abnormal findings of blood chemistry; N52.9 Male erectile dysfunction, unspecified; N40.1 Benign prostatic hyperplasia with lower urinary tract symptoms; R35.0 Frequency of micturition; E66.9 Obesity, unspecified
CPT/HCPCS: 99214

== ENCOUNTER 2023-07-08 07:11 | Outpatient (REF) | payer OTHER, SELFPAY ==
[2023-07-08 07:42] LABS: MANUAL DIFF FLAG NO
[2023-07-08 08:54] LABS: Appearance Urine Clear; Color Urine Dark Yellow; Glucose Urine UA Negative (Negative); Leukocyte Esterase Urine Trace (Negative); Nitrite Urine Negative (Negative); Specific Gravity - Urine 1.015 (1.005-1.025); UMIC TRIGGER UACC YES; Urine Blood Small (1+) (Negative); Urine Ketones Negative (Negative); Urine Protein 30 (1+) mg/dL (Neg-Trace)
[2023-07-08 09:00] LABS: Bacteria Urine None Seen (None Seen); Hyaline Casts Urine 0-2 /LPF (0-2); Squamous Epithelial Cell Urine 0-2 /HPF (0-2); WBC Urine 0-5 /HPF (0-5)
[2023-07-08 09:03] LABS: Basophils Percent Auto 0.3 % (0-2); Eosinophils Percent Auto 0.3 % (0-4); Hematocrit 38.7 % (42.0-52.0); Hemoglobin 12.7 g/dl (14.0-18.0); Imm Gran Abs Auto 0.03 X10*3/uL (0.00-0.03); Imm Gran Pct Auto 0.4 % (0.0-0.4); Lymphocytes Absolute Auto 1.3 X10*3/uL (1.2-4.9); Lymphocytes Percent Auto 16.6 % (20-40); Mean Corpuscular HGB Conc 32.8 g/dl (31.0-36.0); Mean Corpuscular Hemoglobin 31.8 pg (27.0-33.0); Mean Corpuscular Volume 96.8 fL (80.0-98.0); Monocytes Absolute Auto 0.8 X10*3/uL (0.1-1.2); Monocytes Percent Auto 10.9 % (2-11); Neutrophils Absolute Auto 5.4 x10*3/uL (2.0-8.3); Neutrophils Percent Auto 71.5 % (45-73); Platelet Count 128 X10*3/uL (160-400); White Blood Count 7.6 X10*3/uL (4.8-10.8)
[2023-07-08 09:32] LABS: Influenza A PCR NEGATIVE (Negative); Influenza B PCR NEGATIVE (Negative); Resp Syncy Virus RNA Qual PCR NEGATIVE (Negative); SARS COV2 PCR INHOUSE NEGATIVE (Negative)
[2023-07-08 09:52] LABS: Alanine Aminotransferase 14 U/L (0-40); Alkaline Phosphatase 59 U/L (39-117); Anion Gap 10 (12-20); Aspartate Amino Transferase 16 U/L (5-37); Bilirubin Total 2.3 mg/dL (0.0-1.0); Blood Urea Nitrogen 11 mg/dL (9-16); Calcium 9.2 mg/dL (8.4-10.2); Carbon Dioxide 32 mmol/L (22-29); Chloride 103 mmol/L (96-108); Cholesterol 130 mg/dL (<200); Estimated Glomerular Filt Rate > 60; Glucose Fasting 107 mg/dL (60-99); HDL Cholesterol 50 mg/dL (>40); LDL Cholesterol Calculated 70 mg/dL (<100); Potassium 3.9 mmol/L (3.3-5.1); Sodium 141 mmol/L (135-145); TSH reflex Free T4 0.17 uIU/mL (0.32-4.0); Total Protein 7.1 g/dL (6.5-8.0); Triglycerides 51 mg/dL (<150); Vitamin D 25-OH Total 34.2 ng/mL (>30)
[2023-07-08 10:53] LABS: Free T4 (Free Thyroxine) 0.88 ng/dL (0.71-1.85)
[2023-07-09 23:35] LABS: Triiodothyronine T3 Total 85 ng/dL (76-181)
== END 2023-07-08 07:12 | disposition home or self-care (01) ==
LOC: HO.LAB 07:11
PROVIDERS: PCP Internal Medicine; Visit Provider Internal Medicine
DX: I10 Essential (primary) hypertension (principal); E78.00 Pure hypercholesterolemia, unspecified; J98.8 Other specified respiratory disorders; R79.89 Other specified abnormal findings of blood chemistry; E55.9 Vitamin D deficiency, unspecified; R30.0 Dysuria
CPT/HCPCS: 0241U; 80053; 80061; 81001; 82306; 84439; 84443; 84480; 85025

== ENCOUNTER 2023-11-22 14:58 | Outpatient (AMB) | payer OTHER, SELFPAY ==
[2023-11-22 15:05] VITALS: BP 126/80; PULSE 55; O2SAT 93; BMI 35.3
--- NOTE | 2023-11-22 15:05 | A.OFFPC_ITS ---
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 Required: No Accompanied by: Self / Same As Patient Allergies No Known Allergies Allergy (Verified 11/22/23 16:22) Medication List - Last Reconciled 11/22/23 by Drew Mitchell MD apixaban 5 mg PO BID aspirin 81 mg PO DAILY metoprolol succinate ER 50 mg PO DAILY simvastatin 10 mg PO BEDTIME 90 days terazosin 5 mg PO DAILY 90 days Tobacco use date assessed: 11/22/23 Fall risk assessment: No Falls in past year Last assessed Fall Risk: 11/22/23 Dental Screening Dental Screen Date: 11/22/23 Did you have a dental visit in the last 12 months?: Yes Did you have a dental problem in the last 6 months where you did not have access to dental care?: No Was dental information given to patient?: Patient has dentist HPI [facility] f/u HPI Details Patient comes in today for his follow up visit States that he's had an itchy rash over the back of his neck for the past 2 weeks He has tried applying some Calamine lotion over it lately but he has not noticed any significant improvement of the rash with Calamine lotion Also relates (+) increasing pain over his right heel for the past couple of weeks - notes that the pain feels worse with weight-bearing and with walking He denies any recent injury or trauma to his foot or heel States that he feels okay otherwise He denies any headaches or dizziness Denies any chest pains, no SOB No nausea/vomiting, no abdominal pain No change in bowel habits noted He was not able to get his labs done prior to his visit today [facility] Medical History Aneurysm of the aortic arch, without rupture Normal colonoscopy (~04/23/08) Sick sinus syndrome Obesity (BMI 30-39.9) Benign prostatic hyperplasia with urinary frequency Erectile dysfunction Vitamin D deficiency Arthralgia Ureterolithiasis Low TSH level Pure hypercholesterolemia Chronic atrial fibrillation Coronary artery disease Surgical History Status post endovascular aneurysm repair (EVAR) (~01/18/22) Hx of colonoscopy (~04/2008) S/P ICD (internal cardiac defibrillator) procedure Hx of right inguinal hernia repair (~10/2015) Family History Mother Hypertension Father Kidney problem Social History Housing: House Alcohol intake: former Patient Tobacco Use Status: Never used Tobacco e-Cigarette/Vaping Use: Never Used Second Hand Smoke Exposure: Yes service: No Current occupational status: employed 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 1. Little interest or pleasure in doing things: not at all 2. Feeling down, depressed, or hopeless: not at all 3. Trouble falling or staying asleep, or sleeping too much: not at all 4. Feeling tired or having little energy: not at all 5. Poor appetite or overeating: not at all 6. Feeling bad about yourself - or that you are a failure or have let yourself or your family down: not at all 7. Trouble concentrating on things, such as reading the newspaper or watching television: not at all 8. Moving or speaking so slowly that other people could have noticed. Or the opposite - being so fidgety or restless that you have been moving around a lot more than usual: not at all 9. Thoughts that you would be better off or of hurting yourself in some way: not at all Total score: 0 Depression Screening Interpretation: Negative Depression Screening Done: Yes 60097 - PHQ-9 Billing: Yes Source: Developed by Drs. Kimani Hugo, Joleen Hardwick, Darryl Edward and colleagues, with an educational remington from [employer]. Thrive Questionnaire Date Thrive assessed: 11/22/23 I am a: Patient What is your living situation today?: I have a steady place to live Within the past 12 months, did the food you bought not last and you didn't have the money to get more?: Never true Within the past 12 months, did you worry whether your food would run out before you got money to buy more?: Never true Do you have trouble paying for medicines?: No Do you have trouble getting transportation to medical appointments?: No Do you have trouble paying your heating and electricity bill?: No Do you have trouble taking care of your child, family member or friend?: No Do you have trouble with day-to-day activities such as bathing, preparing meals, shopping, managing finances, etc.?: No Are you currently unemployed and looking for a job?: No Are you interested in more education?: No Please select the resources that you would like help with: None Currently or been in a relationship where the following occur: No concerns reported THRIVE Score: 0 AUDIT C Alcohol Use Questionnaire (AUDIT-C) 1. How often do you have a drink containing alcohol?: Never 3. How often do you have six or more drinks on one occasion?: Never Total Score: 0 Score Reviewed/Action Taken: Yes RUTH ANN-7 AMB Questionnaire RUTH ANN-7 Date RUTH ANN - 7 assessed: 11/22/23 Feeling nervous, anxious, or on edge: 0 = Not at all Not being able to stop or control worryin = Not at all Worrying too much about different things: 0 = Not at all Trouble relaxin = Not at all Being so restless that it is hard to sit still: 0 = Not at all Becoming easily annoyed or irritable: 0 = Not at all Feeling afraid as if something awful might happen: 0 = Not at all Total RUTH ANN-7 score (0-4 normal; 5-9 mild; 10-14 moderate; 15-21 severe): 0 Source: Developed by Drs. Kimani Hugo, Joleen Hardwick, Darryl Edward and colleagues, with an educational remington from [employer]. Review of Systems Const Denies chills, Denies fatigue, Denies fever(s) and Denies headache(s) ENT Denies dysphagia, Denies dizziness, Denies otalgia, Denies headache(s), Denies neck pain, Denies odynophagia, Denies sinus pain and Denies sore throat Card Denies chest pain, Denies palpitations and Denies dyspnea Resp Denies chest congestion, Denies cough, Denies dyspnea and Denies wheezing GI Denies abdominal pain, Denies constipation, Denies dysphagia, Denies heartburn, Denies diarrhea, Denies nausea, Denies odynophagia and Denies vomiting Denies hematuria, Denies dysuria and Reports urinary frequency (Rx helps with symptoms) Musc Details: (+) pain over the right heel area - see HPI Denies back pain, Denies arthralgias and Denies neck pain Skin/Breast Reports rash (over the back of the neck - see HPI) Neuro Denies dizziness and Denies headache(s) Endo Denies fatigue and Denies palpitations Aller/Immun Denies wheezing Physical exam (Primary Care) Vital Signs: Last Vital Signs Pulse 55 11/22/23 15:05 BP 126/80 11/22/23 15:05 Pulse Ox 93 11/22/23 15:05 Oxygen Delivery Method Room Air 11/22/23 15:05 BMI result Body Mass Index 35.3 Tobacco/Smoking Status: Tobacco use Status Tobacco use date assessed 11/22/23 11/22/23 15:07 Patient Tobacco Use Status Never used Tobacco 11/22/23 15:07 e-Cigarette/Vaping Use Never Used 11/22/23 15:07 PHQ-9: PHQ-9 Score PHQ-9: Total score 0 11/22/23 16:23 Depression Screening Interpretation: Negative Thrive Assessment: Date of Thrive Assessment Date Thrive assessed 11/22/23 11/22/23 15:07 Currently or been in a relationship where the following occur: No concerns reported Const General: no acute distress and alert HENMT Ears: TM's normal bilaterally and EAC's normal Throat: Yes posterior oropharynx normal and Yes tonsils normal Neck Neck: Yes no lymphadenopathy and Yes supple Thyroid: Thyroid normal Resp Auscultation: clear to auscultation bilaterally, no crackles, no rales and no wheezes Cardio Rate: regular rate Rhythm: abnormal rhythm irregularly irregular Heart sounds: no murmurs GI Palpation (GI): Soft to palpation and nontender Auscultation: normal bowel sounds General: Yes no CVA tenderness Back/Spine/Pelvis Back: no CVA tenderness Thoracic/Lumbar Spine: No lumbar spinal tenderness Skin Rashes: rashes noted (erythematous, over the length of the back of the neck) Extrem General: Yes no clubbing, cyanosis or edema Right lower extremity: foot Details: tenderness Location: of the calcaneus Details: point tenderness Assessment and Plan Assessment & Plan (1) Chronic atrial fibrillation: Comment: S/P ICD placement; is currently rate-controlled Code(s): I48.20 - Chronic atrial fibrillation, unspecified Plan: Patient remains rate-controlled and asymptomatic from a cardiac standpoint Continue Metoprolol ER 50 mg QD Continue Eliquis 5 mg BID for thromboembolism prophylaxis (2) Coronary artery disease: Code(s): I25.10 - Atherosclerotic heart disease of apache coronary artery without angina pectoris Qualifiers: Coronary Disease-Associated Artery/Lesion type: apache artery Habematolel vs. transplanted heart: apache heart Associated angina: without angina Qualified Code(s): I25.10 - Atherosclerotic heart disease of apache coronary artery without angina pectoris Plan: Follow up with cardiology at [facility] as scheduled Continue Aspirin 81 mg QD (3) Aneurysm of the aortic arch, without rupture: Comment: S/P left carotid-subclavian bypass and TEVAR repair of the aortic arch aneurysm plus stent graft by Aj on 01/18/2022 Code(s): I71.22 - Aneurysm of the aortic arch, without rupture Plan: S/P aortic arch aneurysm repair with stent graft in January 2022 Continue Aspirin 81 mg QD lifetime Follow up with vascular and cardiac surgery as scheduled (4) Pure hypercholesterolemia: Code(s): E78.00 - Pure hypercholesterolemia, unspecified Plan: He was not able to get his previously ordered labs done yet - have advised him to get these done JODEE Reinforced low cholesterol diet Continue Simvastatin 10 mg QD Will recheck his labs and fasting lipids in 4 months for follow up (5) Vitamin D deficiency: Code(s): E55.9 - Vitamin D deficiency, unspecified Plan: Continue Vitamin D3 1000 units QD (6) Pain of right heel: Code(s): M79.671 - Pain in right foot Plan: Will send patient for x-rays of the right foot/heel for further evaluation Have advised patient that his right heel pain is likely due to heel spurs; will go ahead and refer him to podiatry for further evaluation and management (7) Rash of neck: Code(s): R21 - Rash and other nonspecific skin eruption Plan: Discussed that this is likely a dermatitis, which is why Calamine lotion only helps symptomatically but is not enough to clear this up Will start him on Mometasone 0.1% cream apply to rash QD PRN (8) Low TSH level: Code(s): R79.89 - Other specified abnormal findings of blood chemistry Plan: Patient's serum TSH level was again low/suppressed when checked last year; free T4 level was normal Patient appeared clinically euthyroid and his thyroid exam was normal with no nodules palpated Will recheck his TSH and free T4 level and will also include total T3 If his TSH is still significantly suppressed, will consider getting a thyroid scan (9) Erectile dysfunction: Code(s): N52.9 - Male erectile dysfunction, unspecified Qualifiers: Erectile dysfunction type: unspecified Qualified Code(s): N52.9 - Male erectile dysfunction, unspecified Plan: Continue Sildenafil 50 mg QD PRN Serum testosterone level was normal at 669 when checked back in September 2018 (10) Benign prostatic hyperplasia with urinary frequency: Code(s): N40.1 - Benign prostatic hyperplasia with lower urinary tract symptoms; R35.0 - Frequency of micturition Plan: Continue Terazosin 5 mg Q HS Follow up with urology as scheduled (11) Obesity (BMI 30-39.9): Code(s): E66.9 - Obesity, unspecified Plan: Reinforced diet/exercise as tolerated/lose weight Plan Follow up in 4 months Orders: Orders Complete Blood Count Auto Diff 4 Months D64.9 - Anemia, unspecified Comprehensive [place]. Panel Fast 4 Months E78.00 - Pure hypercholesterolemia, unspecified Lipid Panel 4 Months E78.00 - Pure hypercholesterolemia, unspecified UA CC w/rflx Micro + Cult 4 Months R30.0 - Dysuria TSH reflex Free T4 4 Months E78.00 - Pure hypercholesterolemia, unspecified Vitamin D 25-OH Total 4 Months E55.9 - Vitamin D deficiency, unspecified XR foot RT min 3V 11/22/23 M79.671 - Pain in right foot Referrals Podiatry Referral M79.671 - Pain in right foot Medications: New mometasone 0.1% 1 appl topical DAILY PRN 45 grams 0RF rash Coding Level of Care Code Est Pt Level 4 ([id number]) Complex EM visit Add On G2211 Diagnoses Chronic atrial fibrillation I48.20 Coronary artery disease involving apache coronary artery of apache heart without angina pectoris I25.10 Coronary Disease-Associated Artery/Lesion type: apache artery Habematolel vs. transplanted heart: apache heart Associated angina: without angina Aneurysm of the aortic arch, without rupture I71.22 Pure hypercholesterolemia E78.00 Vitamin D deficiency E55.9 Pain of right heel M79.671 Rash of neck R21 Low TSH level R79.89 Erectile dysfunction, unspecified erectile dysfunction type N52.9 Erectile dysfunction type: unspecified Benign prostatic hyperplasia with urinary frequency N40.1; R35.0 Obesity (BMI 30-39.9) E66.9
== END 2023-11-22 16:31 | disposition home or self-care (01) ==
PROVIDERS: PCP Internal Medicine; Visit Provider Internal Medicine
DX: I48.20 Chronic atrial fibrillation, unspecified (principal); I25.10 Atherosclerotic heart disease of native coronary artery without angina pectoris; I71.22 Aneurysm of the aortic arch, without rupture; E78.00 Pure hypercholesterolemia, unspecified; E55.9 Vitamin D deficiency, unspecified; M79.671 Pain in right foot; R21 Rash and other nonspecific skin eruption; R79.89 Other specified abnormal findings of blood chemistry; N52.9 Male erectile dysfunction, unspecified; N40.1 Benign prostatic hyperplasia with lower urinary tract symptoms; R35.0 Frequency of micturition
CPT/HCPCS: 99214

== ENCOUNTER 2023-11-24 06:45 | Outpatient (REF) | payer OTHER, SELFPAY ==
--- NOTE | ~2023-11-24 | XR_ITS ---
EXAMINATION: XR FOOT, RIGHT CLINICAL INFORMATION: Right foot pain COMPARISON: None available. TECHNIQUE: AP, lateral, and oblique views of the right foot. FINDINGS: Small heel spur. Mild degenerative change of the midfoot with small dorsal osteophytes. Moderate 1st MTP joint osteoarthritis. No fracture or malalignment. Mild to moderate osteoarthritis of the interphalangeal joints. XR/XR foot RT min 3V IMPRESSION: Small heel spur. 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 Electronically signed by: Bobo Darling MD 11/30/2023 08:35 AM EDT
[2023-11-24 06:55] LABS: MANUAL DIFF FLAG NO
[2023-11-24 07:14] LABS: Basophils Percent Auto 0.5 % (0-2); Eosinophils Absolute Auto 0.1 X10*3/uL (0.0-0.4); Eosinophils Percent Auto 1.3 % (0-4); Hemoglobin 12.7 g/dl (14.0-18.0); Imm Gran Abs Auto 0.02 X10*3/uL (0.00-0.03); Imm Gran Pct Auto 0.3 % (0.0-0.4); Lymphocytes Absolute Auto 1.4 X10*3/uL (1.2-4.9); Lymphocytes Percent Auto 22.8 % (20-40); Mean Corpuscular HGB Conc 32.6 g/dl (31.0-36.0); Mean Corpuscular Hemoglobin 31.3 pg (27.0-33.0); Mean Corpuscular Volume 96.1 fL (80.0-98.0); Mean Platelet Volume 10.2 fL (9.4-12.4); Monocytes Absolute Auto 0.5 X10*3/uL (0.1-1.2); Monocytes Percent Auto 8.6 % (2-11); Neutrophils Absolute Auto 4.1 x10*3/uL (2.0-8.3); Neutrophils Percent Auto 66.5 % (45-73); Platelet Count 135 X10*3/uL (160-400); Red Blood Count 4.06 X10*6/uL (4.60-5.80); Red Cell Distribution Width 13.2 % (11.0-16.0); White Blood Count 6.1 X10*3/uL (4.8-10.8)
[2023-11-24 07:32] LABS: Appearance Urine Clear; Color Urine Yellow; Glucose Urine UA Negative (Negative); Leukocyte Esterase Urine Negative (Negative); Nitrite Urine Negative (Negative); PH 5.5 (5.0-9.0); UMIC TRIGGER UACC YES; Urine Blood Trace (Negative); Urine Ketones Negative (Negative); Urine Protein Negative (Neg-Trace)
[2023-11-24 07:47] LABS: Alanine Aminotransferase 16 U/L (0-40); Albumin Level 4.1 g/dL (3.5-5.0); Alkaline Phosphatase 55 U/L (39-117); Anion Gap 11 (12-20); Aspartate Amino Transferase 23 U/L (5-37); Bilirubin Total 1.6 mg/dL (0.0-1.0); Blood Urea Nitrogen 14 mg/dL (9-16); Calcium 9.4 mg/dL (8.4-10.2); Carbon Dioxide 30 mmol/L (22-29); Chloride 105 mmol/L (96-108); Cholesterol 133 mg/dL (<200); Estimated Glomerular Filt Rate > 60; Glucose Fasting 102 mg/dL (60-99); HDL Cholesterol 46 mg/dL (>40); LDL Cholesterol Calculated 74 mg/dL (<100); Sodium 142 mmol/L (135-145); Triglycerides 66 mg/dL (<150)
[2023-11-24 08:04] LABS: Free T4 (Free Thyroxine) 0.91 ng/dL (0.71-1.85); Thyroid Stimulating Hormone 0.32 uIU/mL (0.32-4.0)
[2023-11-24 08:27] LABS: Bacteria Urine None Seen (None Seen); Hyaline Casts Urine 0-2 /LPF (0-2); Squamous Epithelial Cell Urine 0-2 /HPF (0-2); WBC Urine 0-5 /HPF (0-5)
== END 2023-11-24 06:46 | disposition home or self-care (01) ==
LOC: HO.XRAY 06:45
PROVIDERS: PCP Internal Medicine; Visit Provider Internal Medicine
DX: M79.671 Pain in right foot (principal); D64.9 Anemia, unspecified; E78.00 Pure hypercholesterolemia, unspecified; R79.89 Other specified abnormal findings of blood chemistry; R30.0 Dysuria
CPT/HCPCS: 36415; 73630; 80053; 80061; 81001; 81003; 84439; 84443; 85025

== ENCOUNTER 2024-03-25 14:48 | Outpatient (AMB) | payer OTHER, SELFPAY ==
[2024-03-25 15:23] VITALS: BP 128/84; PULSE 61; O2SAT 91; BMI 34.9
--- NOTE | 2024-03-25 15:23 | MHC.PC.OV ---
Vital Signs 03/25/24 15:23 Height 5 ft 9 in Weight 236 lb 2 oz BMI 34.9 BP 128/84 Blood Pressure Location Lt brachial Position Sitting Pulse 61 Pulse Source Pulse Oximeter Pulse Oximetry (%) 91 L Oxygen Delivery Method Room Air Intake Visit Reasons: hyperlipidemia, CAD, chronic AF Efficiency Expert Required: No Accompanied by: Self / Same As Patient Allergies No Known Allergies Allergy (Verified 03/25/24 15:57) Medication List - Last Reconciled 03/25/24 by Drew Mitchlel MD apixaban 5 mg PO BID aspirin 81 mg PO DAILY metoprolol succinate ER 50 mg PO DAILY mometasone 0.1% 1 appl topical DAILY PRN simvastatin 10 mg PO BEDTIME 90 days terazosin 5 mg PO DAILY 90 days Tobacco use date assessed: 03/25/24 Fall risk assessment: 1 Fall in past year Last assessed Fall Risk: 03/25/24 Dental Screening Dental Screen Date: 03/25/24 Did you have a dental visit in the last 12 months?: No Did you have a dental problem in the last 6 months where you did not have access to dental care?: No Was dental information given to patient?: No HPI hyperlipidemia, CAD, chronic AF HPI Details Patient comes in today for his follow-up visit States that he feels okay He denies any headaches or dizziness Denies any chest pains, no increased shortness of breath No nausea/vomiting, no abdominal pain No change in bowel habits noted He was not able to get his follow-up labs done prior to his appointment today COUNT INCLUDES [facility] Medical History Aneurysm of the aortic arch, without rupture Normal colonoscopy (~04/23/08) Sick sinus syndrome Obesity (BMI 30-39.9) Benign prostatic hyperplasia with urinary frequency Erectile dysfunction Vitamin D deficiency Arthralgia Ureterolithiasis Low TSH level Pure hypercholesterolemia Chronic atrial fibrillation Coronary artery disease Surgical History Status post endovascular aneurysm repair (EVAR) (~01/18/22) Hx of colonoscopy (~04/2008) S/P ICD (internal cardiac defibrillator) procedure Hx of right inguinal hernia repair (~10/2015) Family History Mother Hypertension Father Kidney problem Social History Housing: House Alcohol intake: former Patient Tobacco Use Status: Never used Tobacco e-Cigarette/Vaping Use: Never Used Second Hand Smoke Exposure: Yes service: No Current occupational status: employed 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 1. Little interest or pleasure in doing things: not at all 2. Feeling down, depressed, or hopeless: not at all 3. Trouble falling or staying asleep, or sleeping too much: not at all 4. Feeling tired or having little energy: not at all 5. Poor appetite or overeating: not at all 6. Feeling bad about yourself - or that you are a failure or have let yourself or your family down: not at all 7. Trouble concentrating on things, such as reading the newspaper or watching television: not at all 8. Moving or speaking so slowly that other people could have noticed. Or the opposite - being so fidgety or restless that you have been moving around a lot more than usual: not at all 9. Thoughts that you would be better off or of hurting yourself in some way: not at all Total score: 0 Depression Screening Interpretation: Negative Depression Screening Done: Yes 56026 - PHQ-9 Billing: Yes Source: Developed by Drs. Kimani Hugo, Joleen Hardwick, Darryl Edward and colleagues, with an educational remington from [employer]. Thrive Questionnaire Date Thrive assessed: 03/25/24 I am a: Patient What is your living situation today?: I have a steady place to live Within the past 12 months, did the food you bought not last and you didn't have the money to get more?: Never true Within the past 12 months, did you worry whether your food would run out before you got money to buy more?: Never true Do you have trouble paying for medicines?: No Do you have trouble getting transportation to medical appointments?: No Do you have trouble paying your heating and electricity bill?: No Do you have trouble taking care of your child, family member or friend?: No Do you have trouble with day-to-day activities such as bathing, preparing meals, shopping, managing finances, etc.?: No Are you currently unemployed and looking for a job?: No Are you interested in more education?: No Please select the resources that you would like help with: None Currently or been in a relationship where the following occur: No concerns reported THRIVE Score: 0 AUDIT C Alcohol Use Questionnaire (AUDIT-C) 1. How often do you have a drink containing alcohol?: Never 3. How often do you have six or more drinks on one occasion?: Never Total Score: 0 Score Reviewed/Action Taken: Yes RUTH ANN-7 AMB Questionnaire RUTH ANN-7 Date RUTH ANN - 7 assessed: 03/25/24 Feeling nervous, anxious, or on edge: 0 = Not at all Not being able to stop or control worryin = Not at all Worrying too much about different things: 0 = Not at all Trouble relaxin = Not at all Being so restless that it is hard to sit still: 0 = Not at all Becoming easily annoyed or irritable: 0 = Not at all Feeling afraid as if something awful might happen: 0 = Not at all Total RUTH ANN-7 score (0-4 normal; 5-9 mild; 10-14 moderate; 15-21 severe): 0 Source: Developed by Drs. Kimani Hugo, Joleen Hardwick, Darryl Edward and colleagues, with an educational remington from [employer]. Review of Systems Const Denies chills, Denies fatigue, Denies fever(s) and Denies headache(s) ENT Denies dysphagia, Denies dizziness, Denies otalgia, Denies headache(s), Denies neck pain, Denies odynophagia, Denies sinus pain and Denies sore throat Card Denies chest pain, Denies palpitations and Denies dyspnea Resp Denies chest congestion, Denies cough, Denies dyspnea and Denies wheezing GI Denies abdominal pain, Denies constipation, Denies dysphagia, Denies heartburn, Denies diarrhea, Denies nausea, Denies odynophagia and Denies vomiting Denies hematuria, Denies dysuria and Reports urinary frequency (Rx helps with symptoms) Musc Denies back pain, Denies arthralgias and Denies neck pain Skin/Breast Denies rash Neuro Denies dizziness and Denies headache(s) Endo Denies fatigue and Denies palpitations Aller/Immun Denies wheezing Physical exam (Primary Care) Vital Signs: Last Vital Signs Pulse 61 03/25/24 15:23 BP 128/84 03/25/24 15:23 Pulse Ox 91 L 03/25/24 15:23 Oxygen Delivery Method Room Air 03/25/24 15:23 BMI result Body Mass Index 34.9 Tobacco/Smoking Status: Tobacco use Status Tobacco use date assessed 03/25/24 03/25/24 15:28 Patient Tobacco Use Status Never used Tobacco 03/25/24 15:28 e-Cigarette/Vaping Use Never Used 03/25/24 15:28 PHQ-9: PHQ-9 Score PHQ-9: Total score 0 03/25/24 15:59 Depression Screening Interpretation: Negative Thrive Assessment: Date of Thrive Assessment Date Thrive assessed 03/25/24 03/25/24 15:28 Currently or been in a relationship where the following occur: No concerns reported Const General: no acute distress and alert HENMT Ears: TM's normal bilaterally and EAC's normal Throat: Yes posterior oropharynx normal and Yes tonsils normal Neck Neck: Yes no lymphadenopathy and Yes supple Thyroid: Thyroid normal Resp Auscultation: clear to auscultation bilaterally, no crackles, no rales and no wheezes Cardio Rate: regular rate Rhythm: abnormal rhythm irregularly irregular Heart sounds: no murmurs GI Palpation (GI): Soft to palpation and nontender Auscultation: normal bowel sounds General: Yes no CVA tenderness Back/Spine/Pelvis Back: no CVA tenderness Thoracic/Lumbar Spine: No lumbar spinal tenderness Skin Rashes: no rashes Extrem General: Yes no clubbing, cyanosis or edema Coding Level of Care Code Est Pt Level 4 (05565) Diagnoses Chronic atrial fibrillation I48.20 Coronary artery disease involving [place] coronary artery of [place] heart without angina pectoris I25.10 Coronary Disease-Associated Artery/Lesion type: [place] artery [place] vs. transplanted heart: [place] heart Associated angina: without angina Aneurysm of the aortic arch, without rupture I71.22 Pure hypercholesterolemia E78.00 Vitamin D deficiency E55.9 Low TSH level R79.89 Benign prostatic hyperplasia with urinary frequency N40.1; R35.0 Erectile dysfunction, unspecified erectile dysfunction type N52.9 Erectile dysfunction type: unspecified Obesity (BMI 30-39.9) E66.9 Additional Codes PHQ-9 - 06835 - PHQ-9 Billing: Yes ([id number]) Assessment & Plan Assessment & Plan (1) Chronic atrial fibrillation: Comment: S/P ICD placement; is currently rate-controlled Code(s): I48.20 - Chronic atrial fibrillation, unspecified Category: Medical Plan: Patient remains rate-controlled and asymptomatic from a cardiac standpoint Continue Metoprolol ER 50 mg QD Continue Eliquis 5 mg BID for thromboembolism prophylaxis (2) Coronary artery disease: Code(s): I25.10 - Atherosclerotic heart disease of [place] coronary artery without angina pectoris Category: Medical Qualifiers: Coronary Disease-Associated Artery/Lesion type: [place] artery [place] vs. transplanted heart: [place] heart Associated angina: without angina Qualified Code(s): I25.10 - Atherosclerotic heart disease of [place] coronary artery without angina pectoris Plan: Follow up with cardiology at [facility] as scheduled Continue Aspirin 81 mg QD (3) Aneurysm of the aortic arch, without rupture: Comment: S/P left carotid-subclavian bypass and TEVAR repair of the aortic arch aneurysm plus stent graft by [facility] on 01/18/2022 Code(s): I71.22 - Aneurysm of the aortic arch, without rupture Category: Medical Plan: S/P aortic arch aneurysm repair with stent graft in January 2022 Continue Aspirin 81 mg QD lifetime Follow up with vascular and cardiac surgery as scheduled (4) Pure hypercholesterolemia: Code(s): E78.00 - Pure hypercholesterolemia, unspecified Category: Medical Plan: Patient was not able to get his follow-up labs done prior to his appointment today Reinforced low cholesterol diet Continue Simvastatin 10 mg QD Will recheck his labs and fasting lipids in 4 months for follow up - we will just have patient use his current orders (updated) for his next lab draw (5) Vitamin D deficiency: Code(s): E55.9 - Vitamin D deficiency, unspecified Category: Medical Plan: Continue Vitamin D3 1000 units QD (6) Low TSH level: Code(s): R79.89 - Other specified abnormal findings of blood chemistry Category: Medical Plan: Patient's serum TSH level was again low/suppressed when checked last year; free T4 level was normal Patient appeared clinically euthyroid and his thyroid exam was normal with no nodules palpated Will recheck his TSH and free T4 level and will also include total T3 If his TSH is still significantly suppressed, will consider getting a thyroid scan (7) Benign prostatic hyperplasia with urinary frequency: Code(s): N40.1 - Benign prostatic hyperplasia with lower urinary tract symptoms; R35.0 - Frequency of micturition Category: Medical Plan: Continue Terazosin 5 mg Q HS Follow up with urology as scheduled (8) Erectile dysfunction: Code(s): N52.9 - Male erectile dysfunction, unspecified Category: Medical Qualifiers: Erectile dysfunction type: unspecified Qualified Code(s): N52.9 - Male erectile dysfunction, unspecified Plan: Continue Sildenafil 50 mg QD PRN His serum testosterone level was normal at 669 when checked back in September 2018 (9) Obesity (BMI 30-39.9): Code(s): E66.9 - Obesity, unspecified Category: Medical Plan: Reinforced diet/exercise as tolerated/lose weight Plan Follow up in 4 months
== END 2024-03-25 16:10 | disposition home or self-care (01) ==
PROVIDERS: PCP Internal Medicine; Visit Provider Internal Medicine
DX: I48.20 Chronic atrial fibrillation, unspecified (principal); I71.22 Aneurysm of the aortic arch, without rupture; E66.9 Obesity, unspecified; Z68.34 Body mass index [BMI] 34.0-34.9, adult; I25.10 Atherosclerotic heart disease of native coronary artery without angina pectoris; E78.00 Pure hypercholesterolemia, unspecified; E55.9 Vitamin D deficiency, unspecified; R79.89 Other specified abnormal findings of blood chemistry; N40.1 Benign prostatic hyperplasia with lower urinary tract symptoms; R35.0 Frequency of micturition; N52.9 Male erectile dysfunction, unspecified

== ENCOUNTER → 2024-03-25 14:48 | Outpatient (BNVA) | payer OTHER, SELFPAY | PROVIDERS: PCP Internal Medicine; Visit Provider Internal Medicine | DX: I48.20 Chronic atrial fibrillation, unspecified (principal); I25.10 Atherosclerotic heart disease of native coronary artery without angina pectoris; I71.22 Aneurysm of the aortic arch, without rupture; E78.00 Pure hypercholesterolemia, unspecified; E55.9 Vitamin D deficiency, unspecified; R94.6 Abnormal results of thyroid function studies; N40.1 Benign prostatic hyperplasia with lower urinary tract symptoms; R35.0 Frequency of micturition; N52.9 Male erectile dysfunction, unspecified; E66.9 Obesity, unspecified; Z79.01 Long term (current) use of anticoagulants; Z79.82 Long term (current) use of aspirin; Z79.899 Other long term (current) drug therapy; Z95.810 Presence of automatic (implantable) cardiac defibrillator | CPT/HCPCS: 96127 ==

== ENCOUNTER 2024-06-04 15:52 | Outpatient (AMB) | payer OTHER, SELFPAY ==
[2024-06-04 15:55] VITALS: BP 124/82; PULSE 56; O2SAT 97; BMI 34.7
--- NOTE | 2024-06-04 15:55 | MHC.PC.OV ---
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 Accompanied by: Self / Same As Patient Allergies No Known Allergies Allergy (Verified 06/04/24 23:04) Medication List - Last Reconciled 06/04/24 by Drew Mitchell MD apixaban 5 mg PO BID aspirin 81 mg PO DAILY metoprolol succinate ER 50 mg PO DAILY mometasone 0.1% 1 appl topical DAILY PRN simvastatin 10 mg PO BEDTIME 90 days terazosin 5 mg PO DAILY 90 days Tobacco use date assessed: 06/04/24 Fall risk assessment: 1 Fall in past year Last assessed Fall Risk: 06/04/24 Dental Screening Dental Screen Date: 06/04/24 Did you have a dental visit in the last 12 months?: No Did you have a dental problem in the last 6 months where you did not have access to dental care?: No Was dental information given to patient?: No HPI f/u on open heart surgery 05/06 HPI Details Patient comes in today for his HDF follow up visit Patient underwent emergent thoracic endovascular stent repair of his aortic arch aneurysm last month on 05/06/2024 after a recent follow-up chest CT revealed (+) continued type 1 endoleak with expansion of the aneurysm Patient states that he did well with his surgery and his postop course was mostly uneventful He had a follow-up visit with cardiac surgery a couple of weeks ago and was reportedly experiencing some swelling of his lower extremities and was started on furosemide 80 mg daily for 3 days and was instructed to follow up with his PCP and with Cardiology as well as soon as possible He will also have a repeat chest CT in 3 months for follow-up of his aortic aneurysm repair and graft He was also seen by vascular surgery last week with no additional recommendations Patient states that other than his lower extremity swelling, he feels okay He denies any headaches or dizziness Denies any exertional chest pains or increased shortness of breath although he is still limited with his activities by design because of his recent aortic arch aneurysm repair No nausea/vomiting, no abdominal pain No change in bowel habits noted [facility] Medical History (Updated 06/05/24 @ 00:04 by Drew Mitchell MD) Aneurysm of the aortic arch, without rupture Normal colonoscopy (~04/23/08) Sick sinus syndrome Obesity (BMI 30-39.9) Benign prostatic hyperplasia with urinary frequency Erectile dysfunction Vitamin D deficiency Arthralgia Ureterolithiasis Low TSH level Pure hypercholesterolemia Chronic atrial fibrillation Coronary artery disease Surgical History (Updated 06/05/24 @ 00:15 by Drew Mitchell MD) Status post endovascular aneurysm repair (EVAR) (~05/06/24) Status post endovascular aneurysm repair (EVAR) (~01/18/22) Hx of colonoscopy (~04/2008) S/P ICD (internal cardiac defibrillator) procedure Hx of right inguinal hernia repair (~10/2015) Family History Mother Hypertension Father Kidney problem Social History Housing: House Alcohol intake: former Patient Tobacco Use Status: Never used Tobacco e-Cigarette/Vaping Use: Never Used Second Hand Smoke Exposure: Yes service: No Current occupational status: employed Current occupation: [employer] Cognitive needs: No Hearing needs: No Vision needs: Yes (glasses) Questionnaire PHQ-9 Over the last 2 weeks, how often have you been bothered by any of the following problems? 1. Little interest or pleasure in doing things: not at all 2. Feeling down, depressed, or hopeless: not at all 3. Trouble falling or staying asleep, or sleeping too much: not at all 4. Feeling tired or having little energy: not at all 5. Poor appetite or overeating: not at all 6. Feeling bad about yourself - or that you are a failure or have let yourself or your family down: not at all 7. Trouble concentrating on things, such as reading the newspaper or watching television: not at all 8. Moving or speaking so slowly that other people could have noticed. Or the opposite - being so fidgety or restless that you have been moving around a lot more than usual: not at all 9. Thoughts that you would be better off or of hurting yourself in some way: not at all Total score: 0 Depression Screening Interpretation: Negative Depression Screening Done: Yes 88155 - PHQ-9 Billing: Yes Source: Developed by Drs. Kimani Hugo, Joleen Hardwick, Darryl Edward and colleagues, with an educational remington from [employer]. Thrive Questionnaire Date Thrive assessed: 06/04/24 I am a: Patient What is your living situation today?: I have a steady place to live Within the past 12 months, did the food you bought not last and you didn't have the money to get more?: Never true Within the past 12 months, did you worry whether your food would run out before you got money to buy more?: Never true Do you have trouble paying for medicines?: No Do you have trouble getting transportation to medical appointments?: No Do you have trouble paying your heating and electricity bill?: No Do you have trouble taking care of your child, family member or friend?: No Do you have trouble with day-to-day activities such as bathing, preparing meals, shopping, managing finances, etc.?: No Are you currently unemployed and looking for a job?: No Are you interested in more education?: No Please select the resources that you would like help with: None Currently or been in a relationship where the following occur: No concerns reported THRIVE Score: 0 AUDIT C Alcohol Use Questionnaire (AUDIT-C) 1. How often do you have a drink containing alcohol?: Never 3. How often do you have six or more drinks on one occasion?: Never Total Score: 0 Score Reviewed/Action Taken: Yes RUTH ANN-7 AMB Questionnaire RUTH ANN-7 Date RUTH ANN - 7 assessed: 06/04/24 Feeling nervous, anxious, or on edge: 0 = Not at all Not being able to stop or control worryin = Not at all Worrying too much about different things: 0 = Not at all Trouble relaxin = Not at all Being so restless that it is hard to sit still: 0 = Not at all Becoming easily annoyed or irritable: 0 = Not at all Feeling afraid as if something awful might happen: 0 = Not at all Total RUTH ANN-7 score (0-4 normal; 5-9 mild; 10-14 moderate; 15-21 severe): 0 Source: Developed by Joleen Iverson, Darryl Edward and colleagues, with an educational remington from [employer]. Review of Systems Const Denies chills, Denies fatigue, Denies fever(s) and Denies headache(s) ENT Denies dysphagia, Denies dizziness, Denies otalgia, Denies headache(s), Denies neck pain, Denies odynophagia, Denies sinus pain and Denies sore throat Card Denies chest pain, Denies palpitations and Denies dyspnea Resp Denies chest congestion, Denies cough and Denies dyspnea GI Denies abdominal pain, Denies constipation, Denies dysphagia, Denies heartburn, Denies diarrhea, Denies nausea, Denies odynophagia and Denies vomiting Denies hematuria, Denies dysuria and Reports urinary frequency (Rx helps with symptoms) Musc Denies back pain, Denies arthralgias and Denies neck pain Skin/Breast Denies rash Neuro Denies dizziness and Denies headache(s) Endo Denies fatigue and Denies palpitations Diony/Lymph Details: (+) on and off swelling of both lower extremities Physical exam (Primary Care) Vital Signs: Last Vital Signs Pulse 56 06/04/24 15:55 BP 124/82 06/04/24 15:55 Pulse Ox 97 06/04/24 15:55 Oxygen Delivery Method Room Air 06/04/24 15:55 BMI result Body Mass Index 34.7 Tobacco/Smoking Status: Tobacco use Status Tobacco use date assessed 06/04/24 06/04/24 15:59 Patient Tobacco Use Status Never used Tobacco 06/04/24 15:59 e-Cigarette/Vaping Use Never Used 06/04/24 15:59 PHQ-9: PHQ-9 Score PHQ-9: Total score 0 06/04/24 16:51 Depression Screening Interpretation: Negative Thrive Assessment: Date of Thrive Assessment Date Thrive assessed 06/04/24 06/04/24 15:59 Currently or been in a relationship where the following occur: No concerns reported Const General: no acute distress and alert HENMT Ears: TM's normal bilaterally and EAC's normal Throat: Yes posterior oropharynx normal and Yes tonsils normal Neck Neck: Yes no lymphadenopathy and Yes supple Thyroid: Thyroid normal Resp Auscultation: clear to auscultation bilaterally, no crackles, no rales and no wheezes Cardio Rate: regular rate Rhythm: abnormal rhythm irregularly irregular Heart sounds: no murmurs GI Palpation (GI): Soft to palpation and nontender Auscultation: normal bowel sounds General: Yes no CVA tenderness Back/Spine/Pelvis Back: no CVA tenderness Thoracic/Lumbar Spine: No lumbar spinal tenderness Skin Rashes: no rashes Extrem General: No clubbing, No cyanosis and Yes edema (2+ bipedal edema) Coding Level of Care Code Est Pt Level 4 (61927) Diagnoses Bilateral lower extremity edema R60.0 Aneurysm of the aortic arch, without rupture I71.22 Chronic atrial fibrillation I48.20 Coronary artery disease involving [place] coronary artery of [place] heart without angina pectoris I25.10 Coronary Disease-Associated Artery/Lesion type: [place] artery [place] vs. transplanted heart: [place] heart Associated angina: without angina Pure hypercholesterolemia E78.00 Obesity (BMI 30-39.9) E66.9 Additional Codes PHQ-9 - 70189 - PHQ-9 Billing: Yes ([id number]) Assessment & Plan Assessment & Plan (1) Bilateral lower extremity edema: Code(s): R60.0 - Localized edema Category: Medical Plan: Will send patient for some labs JODEE for follow up/further evaluation of his recent lower extremity edema Discussed that his recent edema may be mostly due to stasis but we should still have him get some labs done JODEE for further evaluation, especially with his recent vascular/cardiothoracic surgery He was treated with oral Furosemide of up to 80 mg daily for a few days by cardiac surgery a couple of weeks ago and if his labs come back okay, may start him back on some oral diuretics but at a lower dose and for a limited time period if he continues to experience significant lower extremity swelling (2) Aneurysm of the aortic arch, without rupture: Comment: S/P left carotid-subclavian bypass and TEVAR repair of the aortic arch aneurysm plus stent graft by [facility] on 01/18/2022 Code(s): I71.22 - Aneurysm of the aortic arch, without rupture Category: Medical Plan: S/P aortic arch aneurysm repair with stent graft in January 2022 but with continued type 1 endoleak with expansion of the aneurysm seen on recent chest CT, he eventually underwent emergent thoracic endovascular stent repair of his aortic arch aneurysm successfully last month on 05/06/2024 Continue Aspirin 81 mg QD lifetime He will have a repeat chest CT in 3 months for follow up and yearly thereafter Follow up with vascular and cardiac surgery as scheduled (3) Chronic atrial fibrillation: Comment: S/P ICD placement; is currently rate-controlled Code(s): I48.20 - Chronic atrial fibrillation, unspecified Category: Medical Plan: Patient remains rate-controlled and asymptomatic from a cardiac standpoint Continue Metoprolol ER 50 mg QD Continue Eliquis 5 mg BID for thromboembolism prophylaxis (4) Coronary artery disease: Code(s): I25.10 - Atherosclerotic heart disease of [place] coronary artery without angina pectoris Category: Medical Qualifiers: Coronary Disease-Associated Artery/Lesion type: [place] artery [place] vs. transplanted heart: [place] heart Associated angina: without angina Qualified Code(s): I25.10 - Atherosclerotic heart disease of [place] coronary artery without angina pectoris Plan: Follow up with cardiology at [facility] as scheduled Continue Aspirin 81 mg QD (5) Pure hypercholesterolemia: Code(s): E78.00 - Pure hypercholesterolemia, unspecified Category: Medical Plan: Reinforced low cholesterol diet Continue Simvastatin 10 mg QD Will recheck his labs and fasting lipids as scheduled in a couple of months for follow up (6) Obesity (BMI 30-39.9): Code(s): E66.9 - Obesity, unspecified Category: Medical Plan: Reinforced diet/exercise as tolerated/lose weight Plan Follow up as scheduled in July 2024 Orders: Orders B Type Natriuretic Peptide Today I48.20 - Chronic atrial fibrillation, unspecified, I50.9 - Heart failure, unspecified, I71.22 - Aneurysm of the aortic arch, without rupture Complete Blood Count Auto Diff Today D64.9 - Anemia, unspecified, I48.20 - Chronic atrial fibrillation, unspecified, I71.22 - Aneurysm of the aortic arch, without rupture Comprehensive Met. Panel Today I48.20 - Chronic atrial fibrillation, unspecified, I71.22 - Aneurysm of the aortic arch, without rupture UA CC w/rflx Micro + Cult Today I48.20 - Chronic atrial fibrillation, unspecified, I71.22 - Aneurysm of the aortic arch, without rupture, R30.0 - Dysuria
== END 2024-06-04 16:52 | disposition home or self-care (01) ==
LOC: HO.HMCH 15:53
PROVIDERS: PCP Internal Medicine; Visit Provider Internal Medicine
DX: I48.20 Chronic atrial fibrillation, unspecified (principal); I71.22 Aneurysm of the aortic arch, without rupture; E66.9 Obesity, unspecified; Z68.34 Body mass index [BMI] 34.0-34.9, adult; R60.0 Localized edema; I25.10 Atherosclerotic heart disease of native coronary artery without angina pectoris; E78.00 Pure hypercholesterolemia, unspecified

== ENCOUNTER → 2024-06-04 15:52 | Outpatient (BNVA) | payer OTHER, SELFPAY | PROVIDERS: PCP Internal Medicine; Visit Provider Internal Medicine | DX: R60.0 Localized edema (principal); I71.22 Aneurysm of the aortic arch, without rupture; I48.20 Chronic atrial fibrillation, unspecified; I25.10 Atherosclerotic heart disease of native coronary artery without angina pectoris; E78.00 Pure hypercholesterolemia, unspecified; E66.9 Obesity, unspecified; Z79.01 Long term (current) use of anticoagulants; Z79.82 Long term (current) use of aspirin; Z79.899 Other long term (current) drug therapy | CPT/HCPCS: 96127 ==

== ENCOUNTER 2024-06-05 09:49 | Outpatient (REF) | payer OTHER, SELFPAY ==
[2024-06-05 10:15] LABS: MANUAL DIFF FLAG NO
[2024-06-05 11:05] LABS: Basophils Percent Auto 0.6 % (0-2); Eosinophils Absolute Auto 0.1 X10*3/uL (0.0-0.4); Hematocrit 30.9 % (42.0-52.0); Hemoglobin 9.6 g/dl (14.0-18.0); Imm Gran Abs Auto 0.02 X10*3/uL (0.00-0.03); Imm Gran Pct Auto 0.4 % (0.0-0.4); Lymphocytes Absolute Auto 0.9 X10*3/uL (1.2-4.9); Lymphocytes Percent Auto 16.5 % (20-40); Mean Corpuscular HGB Conc 31.1 g/dl (31.0-36.0); Mean Corpuscular Volume 93.4 fL (80.0-98.0); Mean Platelet Volume 9.8 fL (9.4-12.4); Monocytes Absolute Auto 0.5 X10*3/uL (0.1-1.2); Monocytes Percent Auto 10.2 % (2-11); Neutrophils Absolute Auto 3.7 x10*3/uL (2.0-8.3); Neutrophils Percent Auto 71.3 % (45-73); Platelet Count 142 X10*3/uL (160-400); Red Blood Count 3.31 X10*6/uL (4.60-5.80); Red Cell Distribution Width 13.6 % (11.0-16.0); White Blood Count 5.2 X10*3/uL (4.8-10.8)
[2024-06-05 11:42] LABS: B Type Natriuretic Peptide 247 pg/mL (<100)
[2024-06-05 11:48] LABS: Appearance Urine Clear; Color Urine Yellow; Glucose Urine UA Negative (Negative); Leukocyte Esterase Urine Negative (Negative); Nitrite Urine Negative (Negative); PH 6.5 (5.0-9.0); UMIC TRIGGER UACC YES; Urine Blood Small (1+) (Negative); Urine Ketones Negative (Negative); Urine Protein Trace mg/dL (Neg-Trace)
[2024-06-05 11:51] LABS: Alanine Aminotransferase 10 U/L (0-40); Albumin Level 3.8 g/dL (3.5-5.0); Alkaline Phosphatase 93 U/L (39-117); Anion Gap 12 (12-20); Aspartate Amino Transferase 28 U/L (5-37); Bilirubin Total 1.3 mg/dL (0.0-1.0); Blood Urea Nitrogen 13 mg/dL (9-16); Calcium 9.2 mg/dL (8.4-10.2); Carbon Dioxide 25 mmol/L (22-29); Chloride 107 mmol/L (96-108); Estimated Glomerular Filt Rate > 60; Glucose Random 103 mg/dL (60-115); Potassium 4.8 mmol/L (3.3-5.1); Sodium 139 mmol/L (135-145); Total Protein 7.4 g/dL (6.5-8.0)
[2024-06-05 11:54] LABS: Bacteria Urine None Seen (None Seen); Hyaline Casts Urine 0-2 /LPF (0-2); Squamous Epithelial Cell Urine 0-2 /HPF (0-2); WBC Urine 0-5 /HPF (0-5)
== END 2024-06-05 09:50 | disposition home or self-care (01) ==
LOC: HO.LAB 09:49
PROVIDERS: PCP Internal Medicine; Visit Provider Internal Medicine
DX: I71.22 Aneurysm of the aortic arch, without rupture (principal); I48.20 Chronic atrial fibrillation, unspecified; I50.9 Heart failure, unspecified; D64.9 Anemia, unspecified; R30.0 Dysuria
CPT/HCPCS: 36415; 80053; 81001; 83880; 85025

== ENCOUNTER 2024-07-23 14:43 | Outpatient (AMB) | payer OTHER, SELFPAY ==
[2024-07-23 15:07] VITALS: BP 102/60; PULSE 67; O2SAT 95; BMI 33.6
--- NOTE | 2024-07-23 15:07 | MHC.PC.OV ---
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 Accompanied by: Self / Same As Patient Allergies No Known Allergies Allergy (Verified 07/23/24 15:44) Medication List - Last Reconciled 07/23/24 by Drew Mitchell MD apixaban 5 mg PO BID aspirin 81 mg PO DAILY metoprolol succinate ER 50 mg PO DAILY mometasone 0.1% 1 appl topical DAILY PRN simvastatin 10 mg PO BEDTIME 90 days terazosin 5 mg PO DAILY 90 days Tobacco use date assessed: 07/23/24 Fall risk assessment: 1 Fall in past year Last assessed Fall Risk: 07/23/24 Dental Screening Dental Screen Date: 07/23/24 Did you have a dental visit in the last 12 months?: No Did you have a dental problem in the last 6 months where you did not have access to dental care?: No Was dental information given to patient?: No HPI Follow Up HPI Details Patient comes in today for his follow up visit States that he feels okay He denies any headaches or dizziness Denies any chest pains, no increased shortness of breath No nausea/vomiting, no abdominal pain No change in bowel habits noted He had his follow-up labs done a few weeks ago - to discuss his results [facility] Medical History Aneurysm of the aortic arch, without rupture Normal colonoscopy (~04/23/08) Sick sinus syndrome Obesity (BMI 30-39.9) Benign prostatic hyperplasia with urinary frequency Erectile dysfunction Vitamin D deficiency Arthralgia Ureterolithiasis Low TSH level Pure hypercholesterolemia Chronic atrial fibrillation Coronary artery disease Surgical History Status post endovascular aneurysm repair (EVAR) (~05/06/24) Status post endovascular aneurysm repair (EVAR) (~01/18/22) Hx of colonoscopy (~04/2008) S/P ICD (internal cardiac defibrillator) procedure Hx of right inguinal hernia repair (~10/2015) Family History Mother Hypertension Father Kidney problem Social History Housing: House Alcohol intake: former Patient Tobacco Use Status: Never used Tobacco e-Cigarette/Vaping Use: Never Used Second Hand Smoke Exposure: Yes service: No Current occupational status: employed 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 1. Little interest or pleasure in doing things: not at all 2. Feeling down, depressed, or hopeless: not at all 3. Trouble falling or staying asleep, or sleeping too much: not at all 4. Feeling tired or having little energy: not at all 5. Poor appetite or overeating: not at all 6. Feeling bad about yourself - or that you are a failure or have let yourself or your family down: not at all 7. Trouble concentrating on things, such as reading the newspaper or watching television: not at all 8. Moving or speaking so slowly that other people could have noticed. Or the opposite - being so fidgety or restless that you have been moving around a lot more than usual: not at all 9. Thoughts that you would be better off or of hurting yourself in some way: not at all Total score: 0 Depression Screening Interpretation: Negative Depression Screening Done: Yes 28994 - PHQ-9 Billing: Yes Source: Developed by Drs. Kimani Hugo, Joleen Hardwick, Darryl Edward and colleagues, with an educational remington from [employer]. Thrive Questionnaire Date Thrive assessed: 07/23/24 I am a: Patient What is your living situation today?: I have a steady place to live Within the past 12 months, did the food you bought not last and you didn't have the money to get more?: Never true Within the past 12 months, did you worry whether your food would run out before you got money to buy more?: Never true Do you have trouble paying for medicines?: No Do you have trouble getting transportation to medical appointments?: No Do you have trouble paying your heating and electricity bill?: No Do you have trouble taking care of your child, family member or friend?: No Do you have trouble with day-to-day activities such as bathing, preparing meals, shopping, managing finances, etc.?: No Are you currently unemployed and looking for a job?: No Are you interested in more education?: No Please select the resources that you would like help with: None Currently or been in a relationship where the following occur: No concerns reported THRIVE Score: 0 AUDIT C Alcohol Use Questionnaire (AUDIT-C) 1. How often do you have a drink containing alcohol?: Never 3. How often do you have six or more drinks on one occasion?: Never Total Score: 0 Score Reviewed/Action Taken: Yes RUTH ANN-7 AMB Questionnaire RUTH ANN-7 Date RUTH ANN - 7 assessed: 07/23/24 Feeling nervous, anxious, or on edge: 0 = Not at all Not being able to stop or control worryin = Not at all Worrying too much about different things: 0 = Not at all Trouble relaxin = Not at all Being so restless that it is hard to sit still: 0 = Not at all Becoming easily annoyed or irritable: 0 = Not at all Feeling afraid as if something awful might happen: 0 = Not at all Total RUTH ANN-7 score (0-4 normal; 5-9 mild; 10-14 moderate; 15-21 severe): 0 Source: Developed by Drs. Kimani Hugo, Joleen Hardwick, Darryl Edward and colleagues, with an educational remington from [employer]. Review of Systems Const Denies chills, Denies fatigue, Denies fever(s) and Denies headache(s) ENT Denies dysphagia, Denies dizziness, Denies otalgia, Denies headache(s), Denies neck pain, Denies odynophagia, Denies sinus pain and Denies sore throat Card Denies chest pain, Denies palpitations and Denies dyspnea Resp Denies chest congestion, Denies cough and Denies dyspnea GI Denies abdominal pain, Denies constipation, Denies dysphagia, Denies heartburn, Denies diarrhea, Denies nausea, Denies odynophagia and Denies vomiting Denies hematuria, Denies dysuria and Reports urinary frequency (Rx helps with symptoms) Musc Denies back pain, Denies arthralgias and Denies neck pain Skin/Breast Denies rash Neuro Denies dizziness and Denies headache(s) Endo Denies fatigue and Denies palpitations Diony/Lymph Details: (+) on and off swelling of both lower extremities Physical exam (Primary Care) Vital Signs: Last Vital Signs Pulse 67 07/23/24 15:07 BP 102/60 07/23/24 15:07 Pulse Ox 95 07/23/24 15:07 Oxygen Delivery Method Room Air 07/23/24 15:07 BMI result Body Mass Index 33.6 Tobacco/Smoking Status: Tobacco use Status Tobacco use date assessed 07/23/24 07/23/24 15:13 Patient Tobacco Use Status Never used Tobacco 07/23/24 15:10 e-Cigarette/Vaping Use Never Used 07/23/24 15:10 PHQ-9: PHQ-9 Score PHQ-9: Total score 0 07/23/24 15:46 Depression Screening Interpretation: Negative Thrive Assessment: Date of Thrive Assessment Date Thrive assessed 07/23/24 07/23/24 15:14 Currently or been in a relationship where the following occur: No concerns reported Const General: no acute distress and alert HENMT Ears: TM's normal bilaterally and EAC's normal Throat: Yes posterior oropharynx normal and Yes tonsils normal Neck Neck: Yes supple and No lymphadenopathy Thyroid: Thyroid normal Resp Auscultation: clear to auscultation bilaterally, no crackles, no rales and no wheezes Cardio Rate: regular rate Rhythm: abnormal rhythm irregularly irregular Heart sounds: no murmurs GI Palpation (GI): Soft to palpation and nontender Auscultation: normal bowel sounds General: Yes no CVA tenderness Back/Spine/Pelvis Back: no CVA tenderness Thoracic/Lumbar Spine: No lumbar spinal tenderness Skin Rashes: no rashes Extrem General: Yes no clubbing, cyanosis or edema Results Reviewed Results Reviewed: Laboratory Tests 11/24/23 06/05/24 06/05/24 06:53 10:12 10:13 WBC 5.2 Hgb 9.6 L D Hct 30.9 L D Plt Count 142 L Sodium 139 Potassium 4.8 Creatinine 0.89 Estimated GFR > 60 Fasting Glucose 102 H Calcium 9.2 AST 28 ALT 10 B-Natriuretic Peptide 247 H Ur Specific [place] 1.010 Urine Protein Trace Urine Glucose (UA) Negative Urine Blood Small (1+) H Urine Nitrite Negative Ur Leukocyte Esterase Negative Coding Level of Care Code Est Pt Level 4 (09686) Diagnoses Chronic atrial fibrillation I48.20 Coronary artery disease involving [place] coronary artery of [place] heart without angina pectoris I25.10 Coronary Disease-Associated Artery/Lesion type: [place] artery [place] vs. transplanted heart: [place] heart Associated angina: without angina Aneurysm of the aortic arch, without rupture I71.22 Pure hypercholesterolemia E78.00 Obesity (BMI 30-39.9) E66.9 Additional Codes PHQ-9 - 19936 - PHQ-9 Billing: Yes ([id number]) Assessment & Plan Assessment & Plan (1) Chronic atrial fibrillation: Comment: S/P ICD placement; is currently rate-controlled Code(s): I48.20 - Chronic atrial fibrillation, unspecified Category: Medical Plan: Patient remains rate-controlled and asymptomatic from a cardiac standpoint Continue Metoprolol ER 50 mg QD Continue Eliquis 5 mg BID for thromboembolism prophylaxis (2) Coronary artery disease: Code(s): I25.10 - Atherosclerotic heart disease of [place] coronary artery without angina pectoris Category: Medical Qualifiers: Coronary Disease-Associated Artery/Lesion type: [place] artery [place] vs. transplanted heart: [place]quois heart Associated angina: without angina Qualified Code(s): I25.10 - Atherosclerotic heart disease of [place] coronary artery without angina pectoris Plan: Continue Aspirin 81 mg QD Follow up with [facility]ology at [facility] as scheduled (3) Aneurysm of the aortic arch, without rupture: Comment: S/P left carotid-subclavian bypass and TEVAR repair of the aortic arch aneurysm plus stent graft by Bharathio on 01/18/2022 Code(s): I71.22 - Aneurysm of the aortic arch, without rupture Category: Medical Plan: S/P aortic arch aneurysm repair with stent graft in January 2022 but with continued type 1 endoleak with expansion of the aneurysm seen on recent chest CT Patient eventually underwent emergent thoracic endovascular stent repair of his aortic arch aneurysm successfully a few months ago on 05/06/2024 Continue Aspirin 81 mg QD lifetime He is being sent for a repeat chest CTA and echocardiogram with definity by cardiology for follow up and this is currently still awaiting scheduling Follow up with vascular and cardiac surgery as scheduled (4) Pure hypercholesterolemia: Code(s): E78.00 - Pure hypercholesterolemia, unspecified Category: Medical Plan: Results of his labs done a few weeks ago reviewed and discussed with patient Reinforced low cholesterol diet Continue Simvastatin 10 mg QD Will recheck his labs and fasting lipids in 4 months for follow up (5) Obesity (BMI 30-39.9): Code(s): E66.9 - Obesity, unspecified Category: Medical Plan: Reinforced diet/exercise as tolerated/lose weight Plan Follow up in 4 months Orders: Orders Complete Blood Count Auto Diff 4 Months D64.9 - Anemia, unspecified Comprehensive [place]. Panel Fast 4 Months E78.00 - Pure hypercholesterolemia, unspecified IRON PROFILE 4 Months D50.9 - Iron deficiency anemia, unspecified Lipid Panel 4 Months E78.00 - Pure hypercholesterolemia, unspecified Vitamin D 25-OH Total 4 Months E55.9 - Vitamin D deficiency, unspecified TSH reflex Free T4 4 Months E78.00 - Pure hypercholesterolemia, unspecified UA CC w/rflx Micro + Cult 4 Months R30.0 - Dysuria
== END 2024-07-23 15:53 | disposition home or self-care (01) ==
LOC: HO.HMCH 14:48
PROVIDERS: PCP Internal Medicine; Visit Provider Internal Medicine
DX: I48.20 Chronic atrial fibrillation, unspecified (principal); I25.10 Atherosclerotic heart disease of native coronary artery without angina pectoris; Z68.33 Body mass index [BMI] 33.0-33.9, adult; E66.9 Obesity, unspecified; I71.22 Aneurysm of the aortic arch, without rupture; E78.00 Pure hypercholesterolemia, unspecified

== ENCOUNTER → 2024-07-23 14:43 | Outpatient (BNVA) | payer OTHER, SELFPAY | PROVIDERS: PCP Internal Medicine; Visit Provider Internal Medicine | DX: I48.20 Chronic atrial fibrillation, unspecified (principal); I25.10 Atherosclerotic heart disease of native coronary artery without angina pectoris; I71.22 Aneurysm of the aortic arch, without rupture; E78.00 Pure hypercholesterolemia, unspecified; E66.9 Obesity, unspecified; Z68.33 Body mass index [BMI] 33.0-33.9, adult; Z79.01 Long term (current) use of anticoagulants; Z79.82 Long term (current) use of aspirin; Z79.899 Other long term (current) drug therapy; Z95.810 Presence of automatic (implantable) cardiac defibrillator | CPT/HCPCS: 96127 ==

== ENCOUNTER 2024-11-29 07:20 | Outpatient (REF) | payer OTHER, SELFPAY ==
--- OUTSIDE RECORDS SUMMARY | 2024-11-29 07:22 | XMS_ITS | Patient Health Record ---
Author Organization [facility] Address [address] [place] [id number] Care Team Providers Care Legislative Aide Name Role Phone Pawan Lane Jr Reason For Referral No Information Plan Of Treatment No Information
[2024-11-29 07:55] LABS: MANUAL DIFF FLAG NO
[2024-11-29 08:17] LABS: Hematocrit 33.7 % (42.0-52.0); Hemoglobin 11.1 g/dl (14.0-18.0); Imm Gran Abs Auto 0.01 X10*3/uL (0.00-0.03); Imm Gran Pct Auto 0.2 % (0.0-0.4); Lymphocytes Absolute Auto 1.3 X10*3/uL (1.2-4.9); Mean Corpuscular HGB Conc 32.9 g/dl (31.0-36.0); Mean Corpuscular Hemoglobin 29.6 pg (27.0-33.0); Mean Corpuscular Volume 89.9 fL (80.0-98.0); NRBC Abs Auto 0.000 X10*3/uL (0.0-0.012); NRBC Pct Auto 0.0 /100WBC (0.0-0.2); Platelet Count 128 X10*3/uL (160-400); Red Blood Count 3.75 X10*6/uL (4.60-5.80); White Blood Count 5.2 X10*3/uL (4.8-10.8)
[2024-11-29 08:59] LABS: Alanine Aminotransferase 15 U/L (0-40); Albumin Level 4.2 g/dL (3.5-5.0); Alkaline Phosphatase 73 U/L (39-117); Anion Gap 10 (12-20); Aspartate Amino Transferase 26 U/L (5-37); Blood Urea Nitrogen 13 mg/dL (9-16); Calcium 9.1 mg/dL (8.4-10.2); Carbon Dioxide 31 mmol/L (22-29); Chloride 106 mmol/L (96-108); Cholesterol 130 mg/dL (<200); Estimated Glomerular Filt Rate > 60; HDL Cholesterol 46 mg/dL (>40); Iron 69 mcg/dL (45-160); Percent Iron Saturation 23 % (15-50); Potassium 4.2 mmol/L (3.3-5.1); Sodium 143 mmol/L (135-145); Total Iron Binding Capacity 300 mcg/dL (228-428); Total Protein 6.8 g/dL (6.5-8.0); Triglycerides 57 mg/dL (<150); Unsaturated Iron Binding 231 ug/dL
[2024-11-29 09:04] LABS: Appearance Urine Clear; Glucose Urine UA Negative (Negative); PH 6.5 (5.0-9.0); Specific Gravity - Urine 1.015 (1.005-1.025)
[2024-11-29 10:53] LABS: Free T4 (Free Thyroxine) 1.00 ng/dL (0.71-1.85)
== END 2024-11-29 07:21 | disposition home or self-care (01) ==
LOC: HO.LAB 07:20
PROVIDERS: PCP Internal Medicine; Visit Provider Internal Medicine
DX: R30.0 Dysuria (principal); E78.00 Pure hypercholesterolemia, unspecified; D50.9 Iron deficiency anemia, unspecified; E55.9 Vitamin D deficiency, unspecified
CPT/HCPCS: 36415; 80053; 80061; 81003; 82306; 83540; 84439; 84443; 85025

== ENCOUNTER 2024-12-03 15:01 | Outpatient (AMB) | payer OTHER, SELFPAY ==
[2024-12-03 15:30] VITALS: BP 110/78; PULSE 50; O2SAT 97; BMI 34.7
--- NOTE | 2024-12-03 15:30 | A.OFFPC_ITS ---
Vital Signs 12/03/24 15:30 Height 5 ft 9 in Weight 235 lb 4 oz BMI 34.7 BP 110/78 Blood Pressure Location Lt brachial Position Sitting Pulse 50 Pulse Source Pulse Oximeter Pulse Oximetry (%) 97 Oxygen Delivery Method Room Air Intake Visit Reasons: 4 Months Literacy Specialist Required: No Accompanied by: Self / Same As Patient Allergies No Known Allergies Allergy (Verified 12/03/24 15:57) Medication List - Last Reconciled 12/03/24 by Drew Mitchell MD apixaban 5 mg PO BID aspirin 81 mg PO DAILY metoprolol succinate ER 50 mg PO DAILY mometasone 0.1% 1 appl topical DAILY PRN simvastatin 10 mg PO BEDTIME 90 days terazosin 5 mg PO DAILY 90 days Tobacco use date assessed: 12/03/24 Fall risk assessment: No Falls in past year Last assessed Fall Risk: 12/03/24 Dental Screening Dental Screen Date: 12/03/24 Did you have a dental visit in the last 12 months?: Yes Did you have a dental problem in the last 6 months where you did not have access to dental care?: No Was dental information given to patient?: Patient has dentist HPI 4 Months HPI Details Patient comes in today for his follow up visit States that he feels okay He denies any headaches or dizziness Denies any chest pains, no increased shortness of breath No nausea/vomiting, no abdominal pain No change in bowel habits noted Needs his Simvastatin Rx refilled He had his follow-up labs done a few days ago - to discuss his results [facility] Medical History Aneurysm of the aortic arch, without rupture Normal colonoscopy (~04/23/08) Sick sinus syndrome Obesity (BMI 30-39.9) Benign prostatic hyperplasia with urinary frequency Erectile dysfunction Vitamin D deficiency Arthralgia Ureterolithiasis Low TSH level Pure hypercholesterolemia Chronic atrial fibrillation Coronary artery disease Surgical History Status post endovascular aneurysm repair (EVAR) (~05/06/24) Status post endovascular aneurysm repair (EVAR) (~01/18/22) Hx of colonoscopy (~04/2008) S/P ICD (internal cardiac defibrillator) procedure Hx of right inguinal hernia repair (~10/2015) Family History Mother Hypertension Father Kidney problem Social History Housing: House Alcohol intake: former Patient Tobacco Use Status: Never used Tobacco e-Cigarette/Vaping Use: Never Used Second Hand Smoke Exposure: Yes service: No Current occupational status: employed 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 Depression Screening Interpretation: Negative Depression Screening Done: Yes Source: Developed by Drs. Kimani Hugo, Darryl Curran and colleagues, with an educational remington from [employer]. Thrive Questionnaire Date Thrive assessed: 07/23/24 Currently or been in a relationship where the following occur: No concerns reported THRIVE Score: 0 AUDIT C Alcohol Use Questionnaire (AUDIT-C) 1. How often do you have a drink containing alcohol?: Never 3. How often do you have six or more drinks on one occasion?: Never Total Score: 0 Score Reviewed/Action Taken: Yes RUTH ANN-7 AMB Questionnaire RUTH ANN-7 Date RUTH ANN - 7 assessed: 07/23/24 Source: Developed by Drs. Kimani Hugo, Darryl Curran and colleagues, with an educational remington from [employer]. Review of Systems Const Denies chills, Denies fatigue, Denies fever(s) and Denies headache(s) ENT Denies dysphagia, Denies dizziness, Denies otalgia, Denies headache(s), Denies neck pain, Denies odynophagia, Denies sinus pain and Denies sore throat Card Denies chest pain, Denies palpitations and Denies dyspnea Resp Denies chest congestion, Denies cough and Denies dyspnea GI Denies abdominal pain, Denies constipation, Denies dysphagia, Denies heartburn, Denies diarrhea, Denies nausea, Denies odynophagia and Denies vomiting Denies hematuria, Denies difficulty urinating, Denies dysuria and Reports urinary frequency (Rx helps with symptoms) Musc Denies back pain, Denies arthralgias and Denies neck pain Skin/Breast Denies rash Neuro Denies dizziness and Denies headache(s) Endo Denies fatigue and Denies palpitations Physical exam (Primary Care) Vital Signs: Last Vital Signs Pulse 50 12/03/24 15:30 BP 110/78 12/03/24 15:30 Pulse Ox 97 12/03/24 15:30 Oxygen Delivery Method Room Air 12/03/24 15:30 BMI result Body Mass Index 34.7 Tobacco/Smoking Status: Tobacco use Status Tobacco use date assessed 12/03/24 12/03/24 15:37 Patient Tobacco Use Status Never used Tobacco 12/03/24 15:37 e-Cigarette/Vaping Use Never Used 12/03/24 15:37 Depression Screening Interpretation: Negative Thrive Assessment: Date of Thrive Assessment Date Thrive assessed 07/23/24 12/03/24 15:37 Currently or been in a relationship where the following occur: No concerns reported Const General: no acute distress and alert HENMT Ears: TM's normal bilaterally and EAC's normal Throat: Yes posterior oropharynx normal and Yes tonsils normal Neck Neck: Yes supple and No lymphadenopathy Thyroid: Thyroid normal Resp Auscultation: clear to auscultation bilaterally, no crackles, no rales and no wheezes Cardio Rate: regular rate Rhythm: abnormal rhythm irregularly irregular Heart sounds: no murmurs GI Palpation (GI): Soft to palpation and nontender Auscultation: normal bowel sounds General: Yes no CVA tenderness Back/Spine/Pelvis Back: no CVA tenderness Thoracic/Lumbar Spine: No lumbar spinal tenderness Skin Rashes: no rashes Extrem General: Yes no clubbing, cyanosis or edema Results Reviewed Results Reviewed: Laboratory Tests 11/29/24 11/29/24 07:50 07:54 WBC 5.2 Hgb 11.1 L Hct 33.7 L Plt Count 128 L Sodium 143 Potassium 4.2 Creatinine 0.92 Estimated GFR > 60 Fasting Glucose 104 H Calcium 9.1 Total Bilirubin 1.2 H AST 26 ALT 15 Triglycerides 57 Cholesterol 130 LDL Cholesterol, Calc 73 HDL Cholesterol 46 25-OH Vitamin D Total 42.5 TSH 0.30 L Free T4 1.00 Ur Specific [place] 1.015 Urine Protein Negative Urine Glucose (UA) Negative Urine Blood Negative Urine Nitrite Negative Ur Leukocyte Esterase Negative Coding Level of Care Code Est Pt Level 4 (70138) Diagnoses Chronic atrial fibrillation I48.20 Coronary artery disease involving [place] coronary artery of [place] heart without angina pectoris I25.10 Coronary Disease-Associated Artery/Lesion type: [place] artery [place] vs. transplanted heart: [place] heart Associated angina: without angina Aneurysm of the aortic arch, without rupture I71.22 Pure hypercholesterolemia E78.00 Obesity (BMI 30-39.9) E66.9 Assessment & Plan Assessment & Plan (1) Chronic atrial fibrillation: Comment: S/P ICD placement; is currently rate-controlled Code(s): I48.20 - Chronic atrial fibrillation, unspecified Category: Medical Plan: Patient remains rate-controlled and asymptomatic from a cardiac standpoint Continue Metoprolol ER 50 mg QD Continue Eliquis 5 mg BID for thromboembolism prophylaxis (2) Coronary artery disease: Code(s): I25.10 - Atherosclerotic heart disease of [place] coronary artery without angina pectoris Category: Medical Qualifiers: Coronary Disease-Associated Artery/Lesion type: [place] artery [place] vs. transplanted heart: [place] heart Associated angina: without angina Qualified Code(s): I25.10 - Atherosclerotic heart disease of [place] coronary artery without angina pectoris Plan: Continue Aspirin 81 mg QD Follow up with [facility]ology at [facility] as scheduled (3) Aneurysm of the aortic arch, without rupture: Comment: S/P left carotid-subclavian bypass and TEVAR repair of the aortic arch aneurysm plus stent graft by Aj on 01/18/2022 Code(s): I71.22 - Aneurysm of the aortic arch, without rupture Category: Medical Plan: S/P aortic arch aneurysm repair with stent graft in January 2022 but with continued type 1 endoleak with expansion of the aneurysm seen on recent chest CT Patient eventually underwent emergent thoracic endovascular stent repair of his aortic arch aneurysm successfully a few months ago on 05/06/2024 Continue Aspirin 81 mg QD lifetime He was sent for a repeat chest CTA and echocardiogram with definity by cardiology late last year Patient thinks that both of these came out okay - we will try to get a copy of these results for review and documentation Follow up with vascular and cardiac surgery as scheduled (4) Pure hypercholesterolemia: Code(s): E78.00 - Pure hypercholesterolemia, unspecified Category: Medical Plan: Results of his labs done a few days ago reviewed and discussed with patient Reinforced low cholesterol diet Continue Simvastatin 10 mg QD Will recheck his labs and fasting lipids in 4 months for follow up (5) Obesity (BMI 30-39.9): Code(s): E66.9 - Obesity, unspecified Category: Medical Plan: Reinforced diet/exercise as tolerated/lose weight Plan Follow up in 4 months Orders: Orders Comprehensive [place]. Panel Fast 4 Months E78.00 - Pure hypercholesterolemia, unspecified TSH reflex Free T4 4 Months E78.00 - Pure hypercholesterolemia, unspecified UA CC w/rflx Micro + Cult 4 Months R30.0 - Dysuria Complete Blood Count Auto Diff 4 Months D64.9 - Anemia, unspecified Lipid Panel 4 Months E78.00 - Pure hypercholesterolemia, unspecified Vitamin D 25-OH Total 4 Months E55.9 - Vitamin D deficiency, unspecified Medications: Refilled simvastatin 10 mg PO BEDTIME 90 tabs 1RF 90 days
--- OUTSIDE RECORDS SUMMARY | 2024-12-03 18:36 | XMS_ITS | Patient Health Record ---
Author Organization [facility] Address [address] [place] [id number] Care Team Providers Care Battery Plate Remover Name Role Phone Pawan Lane Jr [phone] Reason For Referral No Information Plan Of Treatment No Information
== END 2024-12-03 16:19 | disposition home or self-care (01) ==
LOC: HO.HMCH 15:02
PROVIDERS: PCP Internal Medicine; Visit Provider Internal Medicine
DX: I48.20 Chronic atrial fibrillation, unspecified (principal); I25.10 Atherosclerotic heart disease of native coronary artery without angina pectoris; E66.9 Obesity, unspecified; Z68.34 Body mass index [BMI] 34.0-34.9, adult; I71.22 Aneurysm of the aortic arch, without rupture; E78.00 Pure hypercholesterolemia, unspecified

== ENCOUNTER 2025-01-16 09:03 | Outpatient (AMB) | payer OTHER, SELFPAY ==
--- OUTSIDE RECORDS SUMMARY | 2025-01-14 15:30 | XMS_ITS | Continuity of Care Document ---
Author Organization [facility] ter Address [address] [place] [id number]- Care Team Providers Care Dead Mail Checker Name Role Phone Stephen HARRELL, Drew Huitron Primary Care Physician Encounter [facility] [place] Date(s): 01/09/25 - 01/14/[address] [address]- Discharge Disposition: A-D/C Home Attending Physician: Rancho Gutierrez MD Admitting Physician: Anant Celeste MD Referring Physician: Not on Staff, Referring MD Encounter Type: Disch IP Allergies, Adverse Reactions, Alerts No Known Allergies Functional Status Functional Status Assessment Assessment Assessment Component Result Effecti ve Date Total Falls Risk Score 0 01/13 Functional Status Assessment Assessment Assessment Component Result Effecti ve Date Unspecifed Functional Status Assessment Skin abnormality typ e (observable entity) IV infiltrate 01/12/25 Functional Status Assessment Assessment Assessment Component Result Effecti ve Date Unspecifed Functional Status Assessment Skin abnormality typ e (observable entity) Erythema 01/13/25 Functional Status Assessment Assessment Assessment Component Result Effecti ve Date Alejandro scale total score 21 Functional Status Assessment Assessment Assessment Component Result Effecti ve Date Total Falls Risk Score 0 01/12 Functional Status Assessment Assessment Assessment Component Result Effecti ve Date Alejandro scale total score 22 Functional Status Assessment Assessment Assessment Component Result Effecti ve Date Total Falls Risk Score 0 01/14 Functional Status Assessment Assessment Assessment Component Result Effecti ve Date Unspecifed Functional Status Assessment Skin abnormality typ e (observable entity) Erythema 01/14/25 Functional Status Assessment Assessment Assessment Component Result Effecti ve Date Alejandro scale total score 21 Functional Status Assessment Assessment Assessment Component Result Effecti ve Date Total score [AUDIT] 0 01/09/25 Functional Status Assessment Assessment Assessment Component Result Effecti ve Date Disability status [CUBS] I'm Thriving - no identified disability 01/09/25 Difficulty communica ting in usual language No 01/09/25 Because of a physica l, mental, or emotional condition, do you have difficulty doing errands alone such as visiting a physician's office or shopping No 01/09/25 Do you have difficul ty dressing or bathing No 01/09/25 Do you have serious difficulty walking or climbing stairs No 01/09/25 Because of a physica l, mental, or emotional condition, do you have serious difficulty concentrating, remembering, or making decisions No 01/09/25 Difficulty Reading O r Writing No 01/09/25 Do you need any tae tional assistance or accommodations during your visit No 01/09/25 Are you blind, or do you have serious difficulty seeing, even when wearing glasses No 01/09/25 Are you deaf, or do you have serious difficulty hearing No 01/09/25 Immunizations Given and Recorded Vaccine Date Status Refusal Reason influenza virus vaccine, inactivated 12/01/21 [place] rded influenza virus vaccine, inactivated 11/07/20 [place] rded influenza virus vaccine, inactivated 11/23/19 [place] rded influenza virus vaccine, inactivated 11/11/18 [place] rded influenza virus vaccine, inactivated 11/23/17 [place] rded influenza virus vaccine, inactivated 11/24/16 [place] rded influenza virus vaccine, inactivated 12/20/15 [place] rded influenza virus vaccine, inactivated 01/05/15 [place] rded influenza virus vaccine, inactivated 01/03/14 [place] rded influenza virus vaccine, inactivated 12/13/12 [place] rded influenza virus vaccine, inactivated 02/23/10 [place] rded [id number] 12y+ bivalent booster vax 12/01/21 Recorded SARS-CoV-2 mRNA ([id number]) vax 06/24/21 Recorded SARS-CoV-2 (COVID-19) mRNA BNT-162b2 vac 12/29/20 Recorded SARS-CoV-2 (COVID-19) mRNA BNT-162b2 vac 05/18/20 Recorded SARS-CoV-2 (COVID-19) mRNA BNT-162b2 vac 04/27/20 Recorded zoster vaccine, inactivated 03/25/19 Recorded zoster vaccine, inactivated 11/11/18 Recorded tetanus/diphtheria/pertussis, acel(Tdap) 12/21/15 Recorded pneumococcal 23-valent vaccine 01/05/15 Recorded Zoster Vaccine Live 12/13/12 Recorded Medications acetaminophen 325 mg oral tablet 650 mg, By Mouth, Every 4 hours, PRN, Temperature Greater than 100.5, Refills 0, Maintenance, Pain , Mild, 01/14/25 11:44:00 AM EDT, Partial fill upon patient request if the prescription is for a schedule II opioid drug. Start Date: 01/14/25 Status: Ordered Medication Dispense Status: Completed Total Allowed Fills: 1 Fills Dispensed: 0 metoprolol 25 mg oral tablet 25 mg, 1, tablet, By Mouth, 2 times a day, # 60 tablet, Refills 0, Tot. Refills 0, Maintenance, 05/10/24 3:11:00 PM EST, Route to Pharmacy Electronically, [facility], Partial fill upon patient request if the prescription is for a schedule II opioid drug., 175.26, cm, 05/10/24 11:51:00 EST, Height, 104.55, kg, 05/01/24 15:37:00 EST, Dry Weight Start Date: 05/10/24 Stop Date: 06/09/24 Status: Ordered Medication Dispense Status: Completed Quantity: 60.0 Unit: tablet Total Allowed Fills: 1 Fills Dispensed: 0 metoprolol 25 mg oral tablet 25 mg, By Mouth, 2 times a day, # 60 tablet, Refills 2, Tot. Refills 2, Maintenance, 01/14/25 2:28:00 PM EDT, [id number], Partial fill upon patient request if the prescription is for a schedule II opioid drug., 168, cm, 01/14/25 11:55:00 EDT, Height, 101.1, kg, 01/09/25 18:52:00 EDT, Dry Weight Start Date: 01/14/25 Status: Ordered Medication Dispense Status: Completed Quantity: 60.0 Unit: tablet Total Allowed Fills: 3 Fills Dispensed: 0 pantoprazole 40 mg oral delayed release tablet 1 tablet = 40 mg, By Mouth, Daily, # 60 tablet, 2 Refills, Maintenance, 01/14/25 2:27:00 PM EDT, ECTablet, 168, cm, 01/14/25 11:55:00 EDT, Height, 101.1, kg, 01/09/25 18:52:00 EDT, Dry Weight Start Date: 01/14/25 Status: Ordered Medication Dispense Status: Completed Quantity: 60.0 Unit: tablet Total Allowed Fills: 3 Fills Dispensed: 0 senna 187 mg oral tablet 1 tablet = 8.6 mg, By Mouth, 2 times a day, PRN Constipation, 0 Refills, Maintenance, 01/14/25 11:44:00 AM EDT, Tablet, Partial fill upon patient request if the prescription is for a schedule II opioid drug. Start Date: 01/14/25 Status: Ordered Medication Dispense Status: Completed Total Allowed Fills: 1 Fills Dispensed: 0 simvastatin 10 mg oral tablet 10 mg, 1, tablet, By Mouth, Daily at bedtime, # 30 tablet, Refills 0, Tot. Refills 0, Maintenance, 05/10/24 3:11:00 PM EST, Route to Pharmacy Electronically, [facility], Partial fill upon patient request if the prescription is for a schedule II opioid drug., 175.26, cm, 05/10/24 11:51:0 0 EST, Height, 104.55, kg, 05/01/24 15:37:00 EST, Dry Weight Start Date: 05/10/24 Stop Date: 06/09/24 Status: Ordered Medication Dispense Status: Completed Quantity: 30.0 Unit: tablet Total Allowed Fills: 1 Fills Dispensed: 0 terazosin 5 mg oral capsule 5 mg, 1, capsule, By Mouth, Daily at bedtime, # 30 capsule, Refills 0, Tot. Refills 0, Maintenance,05/10/24 3:12:00 PM EST, Route to Pharmacy Electronically, [facility], Partial fill upon patient request if the prescription is for a schedule II opioid drug., 175.26, cm, 05/10/24 11:51:00 EST, Height, 104.55, kg, 05/01/24 15:37:00 EST, Dry Weight Start Date: 05/10/24 Stop Date: 06/09/24 Status: Ordered Medication Dispense Status: Completed Quantity: 30.0 Unit: capsule Total Allowed Fills: 1 Fills Dispensed: 0 Vitamin D3 1000 intl units oral capsule 1 capsule = 25 mcg, By Mouth, Daily, # 100 capsule, 0 Refills, Maintenance, 01/06/25 5:16:00 PM EDT, Capsule, Partial fill upon patient request if the prescription is for a schedule II opioid drug. Start Date: 01/06/25 Stop Date: 02/05/25 Status: Ordered Medication Dispense Status: Completed Quantity: 100.0 Unit: capsule Total Allowed Fills: 1 Fills Dispensed: 0 Mental Status Mental Status Assessment Assessment Assessment Component Result Effecti ve Date [place] coma score total 15 Problem List Condition Confirmation Course Effective Dates Status H ealth Status Informant Presence of cardiac pacemaker Confirmed Active Atrial fibrillation Confirmed Active S/P aortic aneurysm repair Confirmed Active Hypertension Confirmed Active Hyperlipidemia Confirmed Active juxtaductal aortic arch pseudoaneurysm Confirmed Active Severe obesity (BMI 35.0-39.9) with comorbidity Confirmed Active Procedures Procedure Date Related Diagnosis Body Site Status Esophagogastroduodenoscopy, flexible, transoral; with endoscopic ultrasound examination limited to the esophagus, stomach or duodenum, and adjacent structures 01/13/25 Completed Results Radiology Reports * Exam Date Time Procedure Performing Provider Status 01/12/25 12:50 PM US Doppler Ext Upper Venous Left Auth (Verified) Notes: (US Doppler Ext Upper Venous Left) Reason For Exam: Pain/Tenderness Extremities;Pain/Tenderness Extremities RESULT: US Doppler Ext Upper Venous Left US Doppler Ext Upper Venous Left Reason: Pain Tenderness Extremities; Clinical Question(s): Thrombus COMPARISON: None. IMAGING TECHNIQUE: Ultrasound examination of the upper extremity deep venous system was performed using grayscale, color, and spectral wave analysis including response to compression. Assessment includes the contralateral jugular and subclavian vein. FINDINGS: Internal jugular vein: Patent. No thrombosis. Subclavian vein: Patent. No thrombosis. Axillary vein: Patent. No thrombosis. Brachial vein: Patent. No thrombosis. Basilic vein: Patent. No thrombosis. Cephalic vein: 8.5 cm occlusive thrombosis. Contralateral internal jugular vein: Patent. No thrombosis. Contralateral subclavian vein: Patent. No thrombosis. IMPRESSION: Occlusive thrombus in the left cephalic vein. WSN: [id number] Ordering Physician: Rancho Gutierrez Dictated By: Davion Ramos MD Dictated Date/Time: 01/12/25 2:52 pm Reviewed By: Davion Ramos MD Signed By: Davion Ramos MD Signed Date/Time: 01/12/25 2:52 pm Transcribed By: OLIVER Transcribed Date/Time: 01/12/25 2:50 pm Vital Signs Most recent to oldest [Reference Range]: 1 2 3 Height 168 cm (01/14/25 11:55 AM) 168 cm (01/14/25 8:40 AM) 168 cm (01/13/25 11:37 PM) Weight 101.1 kg (01/13/25 12:12 PM) 101.1 kg (01/09/25 6:50 PM) 101.1 kg (01/09/25 6:39 PM) Oxygen Saturation [94-100 %] 97 % (01/14/25 11:55 AM) 95 % (01/14/25 8:40 AM) 96 % (01/13/25 11:37 PM) Pulse Rate [55-90 bpm] 48 bpm *L* (01/14/25 11:55 AM) 57 bpm (01/14/25 8:40 AM) 70 bpm (01/13/25 11:37 PM) Body Mass Index [18.5-24.99 kg/m2] 35.82 kg/m2 *H* (01/13/25 12:12 PM) 35.82 kg/m2 *H* (01/09/25 6:50 PM) 35.82 kg/m2 *H* (01/09/25 6:39 PM) Blood Pressure [90-138/55-84 mm Hg] 104/68mm Hg (01/14/25 11:55 AM) 137/66mm Hg (01/14/25 8:40 AM) 103/57mm Hg (01/13/25 11:37 PM) Respiratory Rate [16-30 br/min] 18 br/min (01/14/25 11:55 AM) 18 br/min (01/14/25 8:40 AM) 20 br/min (01/13/25 11:37 PM) Temperature [96.8-100.4 DegF] 97.3 DegF (01/14/25 11:55 AM) 98 DegF (01/14/25 8:40 AM) 97.9 DegF (01/13/25 11:37 PM) Liters per Minute 6 L/min (01/13/25 1:38 PM) Mode of Delivery (Oxygen) Room air (01/14/25 11:55 AM) Room air (01/14/25 8:40 AM) Room air (01/13/25 11:37 PM) Blood pressure sites Arm, right (01/13/25 11:37 PM) Arm, right (01/13/25 7:51 PM) Arm, right (01/13/25 2:20 PM) Temperature Route Oral (01/14/25 11:55 AM) Oral (01/14/25 8:40 AM) Oral (01/13/25 11:37 PM) Dry Weight 101.1 kg (01/09/25 6:50 PM) 101.1 kg (01/09/25 6:39 PM) Weight Obtained Via Standing scale (01/09/25 6:50 PM) Standing scale (01/09/25 6:39 PM) Dry Weight Obtained Via Standing scale (01/09/25 6:50 PM) Standing scale (01/09/25 6:39 PM) Social History Social History Type Response Smoking Status Never (less than 100 in lifetime) entered on: 03/22/18 Sex Sex Representation Male (finding) Social Determinants of Health Assessment Assessment Assessment Component Result Effecti ve Date Unspecifed Social Determinants of Health Assessment Has lack of transpor tation kept you from medical appointments, meetings, work, or from getting things needed for daily living No 01/09/25 Have you or any fami ly members you live with been unable to get any of the following when it was really needed in past 1 year [PRAPARE] None 01/09/25 Are you worried abou t losing your housing [PRAPARE] No 01/09/25 Housing status I have housing 01/09/25 Do you feel physical ly and emotionally safe where you currently live [PRAPARE] Yes 01/09/25 How often do you see or talk to people that you care about and feel close to [PRAPARE] 3 to 5 times a week 01/09/25 Within the last year , have you been afraid of your partner or ex-partner No 01/09/25 Procedure * Event Display: GG EUS Upper Please click on pdf link to open report History and physical note * Zheng Rodríguez MD: PERFORM Event Display: History and Physical Hospital Authored Date: Patient: ??PETER MI ? Age:??79 Years?Sex:??Male?:??1945?LOC:??[facility]?? 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 ??Over the past few weeks she has noticed??shortness of breath with??minimal exertion. ??No chest pain or palpitations reported.?No orthopnea or PND.?He reported melena, was found to have anemia, was transfused with good response.?? He remained hemodynamically stable.?? DOAC and aspirin were held.?? Underwent EGD??01/08, found to have fungating mass at GJ junction with slow oozing, biopsy was taken??and are pending at this time. ??On my history he tells me that he has noticed??some difficulty with swallowing solids over the past few months and has been choppinghis food more than usual??but that was not something that he??was initially very concerned about.?? Believes that he may have lost weight but??he attributed that to??his recent??aortic surgery and??reduced p.o. intake??in the perioperative period.?? No fevers or night sweats reported. ??No??personal or family history of malignancy.?No smoking??but does report smoking marijuana in the past.?? Oc casional alcohol use but??none recently.?? Otherwise he denies any??cough or runny nose or sore throat, no??abdomen pain or nausea or vomiting or constipation or diarrhea.?? No dysuria, urgency or frequency. ??No confusion or headache or focal weakness or vision changes. ? Review of Systems All other review of systems were negative with the exception of those noted above in the HPI.?? Objective Measurements?? Height: 168 cm (01/10/25) Weight: 101.1 kg (01/09/25) Dry Weight: 101.1 kg (01/09/25) Body Mass Index:??35.82 kg/m2??High (01/09/25) ? Vital Signs?? Temperature: 98.3 DegF (01/10/25 00:12:00) Temperature Route: Oral (01/10/25 00:12:00) Pulse Rate: 73 bpm (01/10/25 00:12:00) Respiratory Rate: 18 br/min (01/10/25 00:12:00) Systolic Blood Pressure: 125 mm Hg (01/10/25 00:12:00) Diastolic Blood Pressure: 70 mm Hg (01/10/25 00:12:00) Blood pressure sites: Arm, left (01/10/25 00:12:00) Mean Arterial Pressure: 88 mm Hg (01/10/25 00:12:00) Pulse Pressure: 55 mm Hg (01/10/25 00:12:00) Oxygen Saturation:??93 %??Low (01/10/25 00:12:00) Mode of Delivery (Oxygen): Room air (01/10/25 00:12:00) Early Warning Score: 2 (01/10/25 00:19:44) ? Intake/Output? No Data Available ? Physical Exam Constitutional: Alert, in no acute distress. Head EENT: Extraocular muscle movement intact.??Moist mucous membranes.?? Neck: Supple. No JVD. Respiratory: Clear to auscultation. No wheezing or crackles. No use of accessory muscles. Cardiovascular: S1S2 regular. No murmurs, rubs or gallops. Gastrointestinal: Abdomen soft, non-tender, non-distended. Normal bowel sounds. Genitourinary: No CVA tenderness. Extremities: No lower extremity pitting??edema. No cyanosis or clubbing. Neurologic: AAOx3, Speech normal. No focal neurological deficits. Skin: No rash. Psychiatric: Normal mood and affect Assessment/Plan Diagnoses 1. 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 ??Bone lesion ??(M89.9) 3. ??Iron deficiency anemia ??(D50.9) 4. ??Anemia due to chronic blood loss ??(D50.0) 5. ??Persistent atrial fibrillation ??(I48.19) 6. ??Presence of cardiac pacemaker ??(Z95.0) 7. ??Hypertension ??(I10) 8. ??Hyperlipidemia ??(E78.2) 9. ??S/P aortic aneurysm repair ??(Z98.890) 10. 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 Mass of gastroesophageal junction (K31.89) ?Associated with??Bone lesion (M89.9),??Iron deficiency anemia (D50.9),??Anemia due to chronic blood loss (D50.0) ? Partial obstruction Sclerotic bone lesion of left pubic symphysis noted on CTA abdomen ?? Underwent EGD??01/08, found to have fungating mass at GJ junction with slow oozing, biopsy was taken??and are pending at this time.??On my history he tells me that he has noticed??some difficulty with swallowing solids over the past few months and has been chopping his food more than usual??but that was not something that he??was initially very concerned about.??Believes that he may have lost weight but??he attributed that to??his recent??aortic surgery and??reduced p.o. intake??in the perioperative period.??No fevers or night sweats reported.??No??personal or family history of malignancy.?No smoking??but does report smoking marijuana in the past.??Occasional alcohol use but??none recently. ?? 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 ?? -Continue IV PPI??twice daily -To determine??best treatment plan we need biopsy results which are pending at this time.??Will consult oncology??to guide on??need for??bone biopsy/treatment planning.??May need to biopsy??this bonelesion.??Can consider thoracic surgery consult??based on oncology recommendations. -S/p 1.5 unit PRBC with good response, status post IV iron 250 mg x 2 -Monitor p.o. intake,??follow-up on pathology results, monitor hemoglobin??and transfuse as needed for hemoglobin less than 7. ?? Persistent atrial fibrillation (I48.19) ?Associated with??Presence of cardiac pacemaker (Z95.0),??Hypertension (I10),??Hyperlipidemia (E78.2) ? continue metoprolol,??statin, DOAC on hold due to GI bleeding concern - Plan for resuming DOAC/aspirin to be determined based on??need for biopsy.??May need to discuss with GI??as he did have oozing of blood??after??procedure. ?? 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 s/p repair, continue statin, aspirin on hold ?? VTE Prophylaxis:??SCDs ?VTE Prophylaxis Assessment:??VTE Prophylaxis Ordered ?? Code Status:??Full code ?Order Code Status:??Code Status Ordered ? Histories Allergies Allergies ?(Active and Proposed Allergies Only) NKA? (Severity: Unknown severity, Onset: Unknown) ? Past Medical History/Problem List Active Problems(7) Atrial fibrillation Hyperlipidemia Hypertension juxtaductal aortic arch pseudoaneurysm Presence of cardiac pacemaker S/P aortic aneurysm repair Severe obesity (BMI 35.0-39.9) with comorbidity ? Past Surgical History Aortic aneurysm repair: 05/06/24 ? Social History Alcohol Details:??Use: Occasional, none recently Substance Abuse Details:??Use: Past. Tobacco Details:??Use: Never (less than 100 in lifetime). History of marijuana use,??none recently ?? Family History No Family History of cancer ? Medications Home Medications apixaban (Eliquis 5 mg oral tablet)??1 tab(s) 5 Milligram By Mouth 2 times a day for 30 Days Aspirin (aspirin 81 mg oral delayed release tablet)??1 tab(s) 81 Milligram By Mouth Daily for 30 Days Cholecalciferol (Vitamin D3 1000 intl units oral capsule)??1 capsule 25 Microgram By Mouth Daily for 30 Days Metoprolol (metoprolol 25 mg oral tablet)??25 Milligram 1 tablet By Mouth 2 times a day for 30 Days Simvastatin (simvastatin 10 mg oral tablet)??10 Milligram 1 tablet By Mouth Daily at bedtime for 30Days Terazosin (terazosin 5 mg oral capsule)??5 Milligram 1 capsule By Mouth Daily at bedtime for 30 Days ? Inpatient Medications Medications (11) Active SCHEDULED: (4) Metoprolol 25mg Tablet (metoprolol 25 mg oral tablet) ??25 mg, By Mouth, 2 times a day NaCl 0.9% Flush 3ml (NaCL 0.9% Flush) ??3 mL, IV Push, Every 8 hours Pantoprazole 40 mg Inj (Pantoprazole Inj) ??40 mg, IV Push Slowly, Every 12 hours Simvastatin 10 mg Tablet (simvastatin 10 mg oral tablet) ??10 mg, By Mouth, Daily at bedtime CONTINUOUS: (0) PRN: (7) Acetaminophen 325 mg Tablet (Acetaminophen Tablet) ??650 mg, By Mouth, Every 4 hours Dextromethorphan-Guaifenesin 20 mg-200 mg/10 mL Liqu UD (Robitussin DM Liquid) ??10 mL, By Mouth, Every 4 hours Melatonin 3 mg Tablet (Melatonin Tablet) ??3 mg, By Mouth, Daily at bedtime NaCl 0.9% Flush 3ml (NaCL 0.9% Flush) ??3 mL, IV Push, Every 8 hours Polyethylene Glycol 17 Gm Powder (MiraLax Powder) ??17 Gm 1 pack/packet, By Mouth, Daily Senna Tablet ??8.6 mg 1 tablet, By Mouth, 2 times a day Simethicone 80 mg Chewable Tablet (Simethicone Tablet) ??80 mg, Chew, 3 times a day ? Results Recent Labs BLOOD COUNT & DIFF WBC 5.2 k/mm3 ()?? 01/09/2025 07:33 RBC 2.52 m/mm3 (Low)?? 01/09/2025 07:33 Hgb 7.5 Gm/dL (Low)?? 01/09/2025 07:33 Hct 23.7 % (Low)?? 01/09/2025 07:33 MCV 94.0 femtoliters ()?? 01/09/2025 07:33 MCH 29.8 pg ()?? 01/09/2025 07:33 MCHC 31.6 Gm/dL (Low)?? 01/09/2025 07:33 Platelet Count 147 k/mm3 (Low)?? 01/09/2025 07:33 RDW-SD 57.7 femtoliters (High)?? 01/09/2025 07:33 MPV 10.3 femtoliters ()?? 01/09/2025 07:33 Nucleated RBC (Automated) 0.0 #/100 WBC'S ()?? 01/09/2025 07:33 Abs. NRBC 0.0 k/mm3 ()?? 01/09/2025 07:33 ?? CHEM GENERAL Sodium 138 mmol/L ()?? 01/09/2025 07:33 Potassium 3.7 mmol/L ()?? 01/09/2025 07:33 Chloride 102 mmol/L ()?? 01/09/2025 07:33 Bicarbonate Level 25 mmol/L ()?? 01/09/2025 07:33 Anion Gap 11 mmol/L ()?? 01/09/2025 07:33 Glucose Level 102 mg/dL (High)?? 01/09/2025 07:33 BUN 13 mg/dL ()?? 01/09/2025 07:33 Creatinine-Blood 0.82 mg/dL ()?? 01/09/2025 07:33 Estimated GFR Creatinine 90 ML/MIN/1.73 M2 ()?? 01/09/2025 07:33 Calcium 8.8 mg/dL ()?? 01/09/2025 07:33 Phosphorus 3.2 mg/dL ()?? 01/09/2025 07:33 Magnesium 1.9 mg/dL ()?? 01/09/2025 07:33 ?? URINE OTHER Est Creatinine Clearance 74.95 mL/min ()?? 01/09/2025 09:04 ?? VIROLOGY COVID-19 PCR Specimen Source NASAL ()?? 01/09/2025 18:50 COVID-19 PCR Result NEGATIVE ()?? 01/09/2025 18:50 ? Electronically Signed on 01/10/25 05:23 AM Marcos HARRELL, [facility] Progress note * Asuncion Shin RN: VERIFY, PERFORM, MODIFY, SIGN Event Display: Progress Note Hospital Authored Date: Patient: PETER MI Age: 79 years Sex: Male : 1945 Associated Diagnoses: None Author: Asuncion Shin RN Findings Nursing Data Vital Signs : VITAL SIGNS SECTION 01/14/2025 11:55 EDT Early Warning Score 3.00 01/14/2025 11:55 EDT Temperature 97.3 DegF Temperature Route Oral Pulse Rate 48 bpm L Respiratory Rate 18 br/min Systolic Blood Pressure 104 mm Hg Diastolic Blood Pressure 68 mm Hg Mean Arterial Pressure 80 mm Hg Pulse Pressure 36 mm Hg Oxygen Saturation 97 % Mode of Delivery (Oxygen) Room air . Narrative/Incidental patient A+Ox3, plan for discharge home today. iv removed, cath tip intact. disharge instructions provided to patient and significant other, pt expressed understanding. he left unit ambulatory at 1530.. Discharge Information Case Management Discharge Plan : Case Management Discharge Plan Data 01/14/2025 15:59 EDT Discharge Level of Care at Discharge Home/Longterm/Foster Care 01/09/2025 18:21 EDT Discharge Level of Care at Discharge Short-term Acute Inpatient Discharge Level of Care at Discharge Short-term Acute Inpatient Electronically Signed on 01/14/25 04:54 PM Kip SHIN, Asuncion [place] RN Tere: PERFORM, SIGN, VERIFY Event Display: Progress Note Hospital Authored Date: Patient: PETER MI Age: 79 years Sex: Male : 1945 Associated Diagnoses: None Author: Tere Orlando RN Findings Problem Related to Alteration in Gastrointestinal : Alteration in Gastrointestinal Func/new 01/13/2025 22:19 EDT Alteration in GI status Related to Other: Gastroesophageal junction mass (acute) Goals & Outcomes, Gastrointestinal Establish a regular pattern of elimination for pt, Nutritional intake is adequate for metabolic needs, Pt will achieve normal/improved fluid balance, Pt will have a bowel movement prior to discharge, Pt will maintain adequate GI function appropriate for pt, Ptwill maintain normal elimination patterns, Pt will resume/maintain adequate hemodynamic status, Pt will tolerate age appropriate diet prior to discharge, Gastric drainage will exhibit progressive clearing, Tissue perfusion will return to baseline Interventions, Gastrointestinal Assess/monitor abdomen for distention, tenderness, Assess/monitor abdominal girth & bowel function, Assess/monitor bowel pattern, bowel sounds, flatus, Assess/monitor number of bowel movements, Assess/monitor color, quantity, quality, consistency of stoo, Assess/monitor pt for nausea, vomiting, Assess/monitor effects of re-hydration, Assess/monitor intake &output, Assess if pt tolerating diet, Collaborate/Consult with Residential Direct Support Professional; review recommendations, DVT prophylaxis as ordered, Elevate HOB to facilitate lung expansion, prevent aspiration, Establish toileting schedule for patient, Taking PO: Encourage/monitor intake & swallowing ability, Teach Pt /caregiver on bowel elimination interventions, Teach Pt/caregiver re: importance of bowel regime, Teach Pt/caregiver re: nutritional intake & dietary restrict, Teach/encourage deep breath & cough exercises BH Goals/Interventions, Gastrointestinal Yes Gastrointestinal, Problem Start 01/13/2025 21:00 Reviewed plan with, Gastrointestinal Patient Patient Progression, Gastrointestinal Plan Initiation . Nursing Data Cardiac Data. : Cardiac Data. 01/13/2025 21:00 EDT Nail Bed Color, Fingers [place] Nail Bed Color, Toes [place] Clubbing Present No Skin Temperature Upper Extremities Warm Skin Temperature Lower Extremities Warm Heart Rhythm Regular Pacemaker Yes Pacemaker type unknown Capillary Refill < 3 seconds Femstop No Periorbital, left None Periorbital, right None Edema, Left Arm None Edema, Right Arm None Hand, left None Hand, right None Edema, sacral None Edema, Left Pretibial None Edema, Right Pretibial None Ankle, left None Ankle, right None Pedal, left None Pedal, right None playground monitor No AV fistula No Cardiovascular WNL except . Gastrointestinal Data. : Gastrointestinal Data. 01/13/2025 21:00 EDT Last Bowel Movement 01/13/2025 GI WNL . Genitourinary Data. : Genitourinary Data. 01/13/2025 21:00 EDT WNL . HEENT Data. : HEENT Assessment 01/13/2025 21:00 EDT HEENT, Adult WNL . Integumentary Data. : Integumentary Data. 01/13/2025 14:12 EDT Sensory Perception No impairment Moisture Rarely moist Activity Walks frequently Mobility No limitations Nutrition Probably inadequate Friction and Shear No apparent problem Alejandro Score 21 Nursing Care Plan initiated/updated Not applicable . Musculoskeletal Data. : Musculoskeletal Data. 01/13/2025 21:00 EDT Musculoskeletal WNL . Neurological Data. : Neurological Data. 01/13/2025 21:00 EDT Tongue Disposition Midline Neurological Symptoms None Level of Consciousness Full Consciousness Orientated to person, place, time Person, Place, Time, Event Facial Symmetry Intact Characteristics of Speech Clear and normal Swallowing Difficulty None Pupil description, left Regular Pupil description, right Regular Pupil reaction, left Brisk Pupil reaction, right Brisk Strength LUE 5-Active movement against gravity & full resistance Strength RUE 5-Active movement against gravity & full resistance Strength LLE 5-Active movement against gravity & full resistance Strength RLE 5-Active movement against gravity & full resistance Tone LUE Normal Tone RUE Normal Tone LLE Normal Tone RLE Normal Sensation LUE Intact Sensation RUE Intact Sensation LLE Intact Sensation RLE Intact Movement LUE Spontaneous, To command Movement RUE Spontaneous, To command Movement LLE Spontaneous, To command Movement RLE Spontaneous, To command Gait Steady Tremors None Response Eye Opening Spontaneously Motor Response-Adult Obeys commands Verbal Response-Adult Oriented and converses Dominique Coma Score 15 1 - 10 Pain Scale Score 4 Pain Interventions Heat Pain relief acceptable Yes Neuro WNL except Corneal/Blink Reflex Intact right, Intact left Eyes and Movements Conjugate gaze: Move in same direction at same speed Headache None Memory Intact Swallow - Neuro Normal . Evaluation A&O x4, speech clear, follows commands, PERRL. Denies headache, dizziness, n/t, n/v, changes invision from baseline. Lungs CTA, denies SOB. 5/, steady gait. +PP, no edema, denies CP, pacemaker.+BS x4, LBM 01/13/2025 pt. stated he had a BM earlier today. Voids without pain or difficulty, continent uses BR. Skin CDI, L forearm pink and swollen M.D. aware no new interventions. Bed locked in lo west position, bed alarm on, antislip socks applied, all questions and concerns addressed, call cedillo within reach, safety maintained. . Discharge Information Case Management Discharge Plan : Case Management Discharge Plan Data 01/09/2025 18:21 EDT Discharge Level of Care at Discharge Short-term Acute Inpatient Discharge Level of Care at Discharge Short-term Acute Inpatient Electronically Signed on 01/13/25 10:23 PM Johanny SHIN, Tere * Warner SHIN, Zahra: PERFORM, SIGN, VERIFY Event Display: Progress Note Hospital Authored Date: [id number] Patient: PETER MI Age: 79 years Sex: Male : 1945 Associated Diagnoses: None Author: Warner SHIN, Zahra Findings Problem Related to Alteration in Comfort : Alteration in Comfort/new 01/13/2025 14:00 EDT Alteration in Comfort Related to Disease process Goals & Outcomes: Comfort Pt will report acceptable level of comfort & pain control, Pt will state importance of adhering to pain strategy regime, Pt will demonstrate necessary skills to manage pain Interventions Implemented: Comfort Assess pain using appropriate pain scale/tools, Assess aggravating factors & prevent them accordingly, Assess alleviating factors & promote them accordingly BH Goals/Interventions, Comfort Yes Comfort, Problem Start 01/09/2025 18:46 Reviewed plan with, Comfort Patient Patient Progression, Comfort Pt progressing according to plan Comfort, Problem Ongoing Yes . Evaluation pt a&ox4. VSS. denies pain. independently ambulating. went for EUS this afternoon. tolerating regular diet this evening. bed locked and in lowest position. call cedillo within reach. please see cis for further assessment details.. Discharge Information Case Management Discharge Plan : Case Management Discharge Plan Data 01/09/2025 18:21 EDT Discharge Level of Care at Discharge Short-term Acute Inpatient Discharge Level of Care at Discharge Short-term Acute Inpatient Electronically Signed on 01/13/25 05:13 PM Zahra Hylton RN Note * Asuncion Shin RN: PERFORM Event Display: Discharge/Transfer Note Hospital Authored Date: [id number] Nursing Discharge Note Entered On: 01/14/2025 15:59 EDT Performed On: 01/14/2025 15:59 EDT by Asuncion Shin RN Nursing Discharge Note 2 Discharge Time : 01/14/2025 15:30 EDT Discharge Level of Care at Discharge : Home/Longterm/Foster Care Patient Left Unit Via : Ambulatory Patient Accompanied Off Unit with : Responsible adult DC Instructions Provided & Signed by Pt : Yes Patient Understands D/C Instructions : Yes Verbalized Understanding of D/C Plan By : Significant other Patient Instructions Discharge Signed : Yes Did Pt have Specialty Bed or Wound Vac : No Asuncion Shin RN - 01/14/2025 15:59 EDT Electronically Signed on 01/14/25 03:59 PM Asuncion Shin RN * Brenda HARRELL, Rancho: PERFORM, MODIFY, MODIFY, MODIFY, MODIFY Event Display: Discharge/Transfer Note Hospital Authored Date: [id number] Patient: ??PETER MI ? Age:??79 Years?Sex:??Male?:??1945?LOC:??[facility]?? 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) _ Discharge Medications Acetaminophen (acetaminophen 325 mg oral tablet)??650 Milligram By Mouth Every 4 hours as needed Temperature Greater than 100.5 Pain , Mild Cholecalciferol (Vitamin D3 1000 intl units oral capsule)??1 capsule 25 Microgram By Mouth Daily for 30 Days Metoprolol (metoprolol 25 mg oral tablet)??25 Milligram 1 tablet By Mouth 2 times a day for 30 Days Metoprolol (metoprolol 25 mg oral tablet)??25 Milligram By Mouth 2 times a day Pantoprazole (pantoprazole 40 mg oral delayed release tablet)??1 tab(s) 40 Milligram By Mouth Daily Senna (senna 187 mg oral tablet)??1 tab(s) 8.6 Milligram By Mouth 2 times a day as needed Constipation Simvastatin (simvastatin 10 mg oral tablet)??10 Milligram 1 tablet By Mouth Daily at bedtime for 30Days Terazosin (terazosin 5 mg oral capsule)??5 Milligram 1 capsule By Mouth Daily at bedtime for 30 Days ? Discharge Medications New Acetaminophen (acetaminophen 325 mg oral tablet)650 Milligram Oral every 4 hours as needed Pain , Mild. Temperature Greater than 100.5. Senna (senna 187 mg oral tablet)1 tab(s) Oral twice a day as needed Constipation. Unchanged Aspirin (aspirin 81 mg oral delayed release tablet)1 tab(s) Oral Daily for 30 Days. Refills: 0. Cholecalciferol (Vitamin D3 1000 intl units oral capsule)1 capsule Oral Daily for 30 Days. Metoprolol (metoprolol 25 mg oral tablet)1 tab(s) Oral twice a day for 30 Days. Refills: 0. Simvastatin (simvastatin 10 mg oral tablet)1 tab(s) Oral Daily at Bedtime for 30 Days. Refills: 0. Terazosin (terazosin 5 mg oral capsule)1 capsule Oral Daily at Bedtime for 30 Days. Refills: 0. Discontinued apixaban (Eliquis 5 mg oral tablet)1 tab(s) Oral twice a day for 30 Days. Refills: 0. PCP Follow-Up/Heads-Up Follow-up with thoracic surgery Follow-up with oncology Follow-up with GI Follow-up with cardiology Monitor hemoglobin??as an outpatient Future Appointments Monday 4:00 PM EST ?? Type: Return With: Luis Trejo DO Where: [facility] [address] [place] [address] Drive [address] [place] [address]- Status: Pending Hospital Course ?? 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 Blood work showed anemia, underwent??EGD??with new esophageal??mass,??concern for bleeding, transferred to [facility] for??furthermanagement including thoracic surgery evaluation. ??Patient was evaluated by??GI, thoracic surgery and oncology during this hospital stay.?? Patient underwent EUS??by GI team on 01/13.?? Biopsy results from??EGD is still pending.?? He also developed??cephalic vein thrombosis on the left side, conservatively treated??given superficial nature and due to risk of bleeding from anticoagulation. ??Cardiology was consulted??for anticoagulation,??as GI opined his??esophageal mask high risk of bleeding.?? Per cardiology, hold off on Eliquis??for now,??aspirin might be able to be resumed??in a week time. ??If hemoglobin is stable and no further evidence of active bleeding. ?? Patient was discharged in stable condition.I also met Sloane, pt's second HC who pt lives with and updated discharge planning. ?? 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 Underwent EGD??01/08, found to have fungating mass at GJ junction with slow oozing, biopsy was taken??and are pending at this time.??On my history he tells me that he has noticed??some difficulty with swallowing solids over the past few months and has been chopping his food more than usual??but that was not something that he??was initially very concerned about.??Believes that he may have lost weight but??he attributed that to??his recent??aortic surgery and??reduced p.o. intake??in the perioperative period.??No fevers or night sweats reported.??No??personal or family history of malignancy.?No smoking??but does report smoking marijuana in the past.??Occasional alcohol use but??none recently. ?? CT angio abdomen pelvis and CT chest with contrast.??No evidence of active GI bleeding, stable thoracic aortic aneurysm status postrepair, soft tissue mass of mid esophagus measuring up to 0.7 cm.??New sclerotic lesion of the left pubic symphysis concerning for possible osseous metastasis.??No acute intrathoracic abnormality.??No evidence of intrathoracic metastatic disease. ?? -No further evidence of bleeding. Continue monitoring. Hb>7 as of now, stable from yesterday -Oncology consulted; discussed with onc team recommended PSA, thoracic surgery consult and wait forbiopsy results. PSA negative -Thoracic surgery consulted; discussed with thoracic surgery team : recommended to f/u biopsies, EUS, PET CT adn followup outot in thoracic clinic -GI consulted, s/p EUS on 01/13 -??Discussed with thoracic surgery,, discharge from thoracic surgery standpoint and will have outpatient follow-up to discuss further plan of care and with the biopsy results -Discussed with oncology team,??updated about EUS, will have outpatient follow-up -Discussed with GI regarding resuming AC and aspirin, recommended cardio opinion -Cardio consulted for AC and??aspirin recommendations, I discussed with Dr Horowitz from [facility], apprecite recs -??Per cardiology recommendation,??hold off on??further??Eliquis??for now??given high bleeding risk.?? Plan to resume??aspirin as an outpatient??if no evidence of??persistent GI bleeding??and providehis hemoglobin remained stable, can resume in 1 week out from his biopsy with follow-up of H&H??with his primary care providers and oncology -??Based on bleeding and anemia and onc prognosis can get a watchman consult in followup, he has cardio followuo in few months ?? Recs from cardio for anticoagulation and aspirin -Acute blood loss anemia with??GI source from a friable??GE junction mass??now status post endoscopy and biopsy??with GI and oncology follow-up, suspicion for bony metastases.?? In the context of recent anemia requiring transfusion, definitely would hold off on the DOAC.?? High [id number]-HNMb 2 scorebut his??bleeding risk is real and present. -??He has history of??atherosclerotic thoracic aneurysm s/p repair.?? If hemoglobin remained stable??with no evidence of??persistent GI ooze or melena??would resume aspirin??1 week out from his??biopsy with follow-up of H&H with his primary care providers and oncology ? cardio consulted, I discussed with Dr Horowitz from [facility], recommended to continue aspirin and hold eliquis for now; doing same on discharge, outpt followup to discuss when safe to resume ? Left??cephalic vein thrombosis ?8.5 cm ?Though big size, discussed with hematology, will do conservative management??given superficialnature and risk of bleeding.?No anticoagulation due to risk of bleeding ?His anticoagulation has been held??because of his??esophageal mass and bleeding. -Conservative mx for now -Monitor as an outpatient; if doesnt get better or if worse then might probably resume prophylacticdose after discussion with cardio and gi ? Sclerotic bone lesion of left pubic symphysis noted on CTA abdomen -Pt asymptomatic -Not sure if related to esophageal mass or not -PSA negative -??Discussed with oncology, no need for any workup inpatient, might??need bone scan as an outpatient. ??Oncology will??arrange ?? Persistent atrial fibrillation (I48.19) ?Associated with??Presence of cardiac pacemaker (Z95.0),??Hypertension (I10),??Hyperlipidemia (E78.2) ? continue metoprolol,??statin, DOAC on hold due to GI bleeding concern -??Eliquis discontinued after cardio consultation due to high risk of bleeding. ?? 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 s/p repair, continue statin,??aspirin resumed ?? VTE Prophylaxis:??SCDs ?VTE Prophylaxis Assessment:??VTE Prophylaxis Ordered ?? Disposition: Discharge home Code Status:??Full code ?Order Code Status:??Code Status Ordered ? Objective Assessment and Plan ? Vital Signs?? Temperature: 97.3 DegF (01/14/25 11:55:00) Temperature Route: Oral (01/14/25 11:55:00) Pulse Rate:??62 bpm (01/14/25 11:55:00) Heart Rate Monitored: 56 bpm (01/13/25 14:20:00) Respiratory Rate: 18 br/min (01/14/25 11:55:00) Systolic Blood Pressure: 104 mm Hg (01/14/25 11:55:00) Diastolic Blood Pressure: 68 mm Hg (01/14/25 11:55:00) Blood pressure sites: Arm, right (01/13/25 23:37:00) Mean Arterial Pressure: 80 mm Hg (01/14/25 11:55:00) Pulse Pressure: 36 mm Hg (01/14/25 11:55:00) Oxygen Saturation: 97 % (01/14/25 11:55:00) Mode of Delivery (Oxygen): Room air (01/14/25 11:55:00) Early Warning Score: 3 (01/14/25 11:55:25) ? . Physical Exam General: Awake, oriented, no distress HEENT:??No pallor, icterus respiratory??normal breath sound. ??No added sound Cardiovascular:??normal Rhythm. ??No murmur.? Abdomen: Soft, nontender. ??Present Extremities:??No peripheral edema. LUE swollen tender and erythematous, slightly better than yesterday, pulse palpable Neuro: Moving all EXTR. ??No facial droop or slurred speech Surgical Procedures Gastroscopy (EGD) with Endoscopic Ultras 01/13/2025 13:18 [facility] Thoracic surgery oncology cardiology Pending Results Biopsy results from EGD Patient Instructions You were admitted for evaluation of anemia and esophageal mass. ??You underwent??endoscopy and??EUSby GI team and biopsy has been taken.?? You were also evaluated by thoracic surgery. ??You were also evaluated by oncology team??and cardiology team ???Please take medication as mentioned in discharge summary ??? Stop taking your blood thinner Eliquis and aspirin.?? Please get follow-up blood work with yourPCP/oncology??and if hemoglobin is??stable,??then??your PCP/oncology??may resume your aspirin. ?Follow-up with biopsy results. ?Follow-up with??thoracic surgery??as an outpatient ??? Follow-up with oncology as an outpatient ??? Follow-up with??cardiology as an outpatient ??? Follow-up with??gastroenterology as an outpatient ?If you get any symptoms like??high-grade fever, chills, nausea, vomiting, lightheadedness, dizziness??then please seek medical attention ??? For your left upper extremity swelling??and a blood clot,??elevate your limb, apply??warm compression or ice pack as needed for pain. ??You can also take Tylenol.?? Please??seek medical attentionif it does not get better over time. Home Health Face to Face ^HomeHealthFTF 35_ minutes spent on discharge Electronically Signed on 01/14/25 01:34 PM Rancho Gutierrez MD Electronically Signed on 01/14/25 01:39 PM Rancho Gutierrez MD Electronically Signed on 01/14/25 01:39 PM Rancho Gutierrez MD Electronically Signed on 01/14/25 02:30 PM Rancho Gutierrez MD, RN, Sarina: PERFORM Event Display: Patient Education/Instruction Authored Date: [id number] Inpatient Adult Discharge Instructions. [address] [address] Name: PETER MI : 1945?? Visit: 01/09/2025 18:38?? Current Date: 01/14/2025 14:43 ?? Account: [id number]?? Inpatient Adult Discharge Instructions We would like to thank you for allowing us to assist you with your healthcare needs. The following includes patient education materials and information regarding your injury/illness. Our entire staffstrives to provide an excellent experience for our patients and their families. PLEASE ENSURE YOU FOLLOW-UP PER THE INSTRUCTIONS BELOW! ?? YOUR OPINION IS IMPORTANT TO US! Please complete the survey you may receive by mail or email. Your feedback will be used to make improvements to the healthcare experiences of our patients and their families. Surveys are administered by [employer] ?? If further treatment with your primary care physician or another doctor is recommended, it is important for you to keep the appointment. Call your primary care physician or return to the Emergency Department immediately if your condition worsens, fails to improve, or new symptoms develop. If you need to find a doctor, you can call [facility] for a referral at [phone] or toll free at [phone]) or log in to [email or web address].. ?? [facility], in keeping with [facility] guidance, no longer requires face masks for staff, patientsor visitors in most situations. Similiar to time spent indoors at other locations, there is the chance that you were exposed to repiratory viruses during your time with us (such as flu or COVID-19). If you develop symptoms concerning for a viral respiratory infection, please seek testing (and treatment if indicated) from your medical provider or home test kit. ?? You can view and manage your care through the patient portal or by using a health care da of your choosing. [employer] is a website that allows you to securely view your medical information including your hospital discharge summary, office visit summaries, medications and follow-up visits. You can also request appointments, renew medications, and request access to your medical information using a health care da of your choosing, or just ask a question. You are entitled to know the individuals who participated in your treatment. This information is available within your medical record and will be provided upon your request. You can enroll at [email or web address] or register d uring your next office visit. You have been discharged from [facility], Patient Care Unit: [id number]??. If you have any questions regarding these instructions, including results of studies pending, afteryou leave, please call us and we will be happy to assist you 10/10. [facility] Your Care Team Attending Physician Rancho Guteirrez MD?? Consulting Providers Rancho Gutierrez MD?? Discharging Providers Rancho Gutierrez MD Your Diagnosis Mass of gastroesophageal junction Bone lesion Iron deficiency anemia Anemia due to chronic blood loss Persistent atrial fibrillation Presence of cardiac pacemaker Hypertension Hyperlipidemia S/P aortic aneurysm repair juxtaductal aortic arch pseudoaneurysm Tests Performed Below is a partial list of the tests performed during your hospitalization. You may have had other tests and procedures not included in this list. Please discuss all test results with your provider. Basic Metabolic Panel CBC COVID-19 (2019 Novel Coronavirus) PCR Liver Function Panel Magnesium Level PSA US Doppler Ext Upper Venous Left Basic Metabolic Panel?? CBC?? COVID-19 (2019 Novel Coronavirus) PCR?? Hepatic Function Panel (Liver Function Panel)?? Magnesium Level?? PSA?? US Doppler Ext Upper Venous Left?? Primary Care Provider Drew Mitchell MD? Advance Directive Health Care Proxy on File Yes - Health Care Proxy Discharge Vitals Temperature: 97.3 DegF Height: 168 cm Pulse Rate:??48 bpm??Low Weight: 101.1 kg Respiratory Rate: 18 br/min Body Mass Index:??35.82 kg/m2??High Systolic Blood Pressure: 104 mm Hg Body surface area: 2.17 Diastolic Blood Pressure: 68 mm Hg ?? Oxygen Saturation: 97 % ?? Studies Pending All studies ordered during this hospital stay have been completed unless listed below. Please discuss all pending results with your provider listed above in these instructions. ?? No incomplete studies found?? What to do next Instructions From Your Doctor You were admitted for evaluation of anemia and esophageal mass. ??You underwent??endoscopy and??EUSby GI team and biopsy has been taken.?? You were also evaluated by thoracic surgery. ??You were also evaluated by oncology team??and cardiology team ???Please take medication as mentioned in discharge summary ??? Stop taking your blood thinner Eliquis and aspirin.?? Please get follow-up blood work with yourPCP/oncology??and if hemoglobin is??stable,??then??your PCP/oncology??may resume your aspirin. ?Follow-up with biopsy results. ?Follow-up with??thoracic surgery??as an outpatient ??? Follow-up with oncology as an outpatient ??? Follow-up with??cardiology as an outpatient ??? Follow-up with??gastroenterology as an outpatient ?If you get any symptoms like??high-grade fever, chills, nausea, vomiting, lightheadedness, dizziness??then please seek medical attention ??? For your left upper extremity swelling??and a blood clot,??elevate your limb, apply??warm compression or ice pack as needed for pain. ??You can also take Tylenol.?? Please??seek medical attentionif it does not get better over time. ?? Orders??:Regular Diet :fair :Fair? 01/14/25 13:59:00 EDT?? Scheduled Follow-Up Appointments Monday 4:00 PM EST ?? Type: Return With: Luis Trejo DO Where: [facility] [address] [place], [place] [id number]- Status: Pending Discharge Medications PETER [place] :1945 Visit Date:01/09/2025 Medications: Please continue your medications until treatment is completed or stopped by your provider. Medications not listed below should be discontinued. Discuss any questions related to medications with your provider. What How Much When Instructions Next Dose New Acetaminophen (acetaminophen 325 mg oral tablet) 650 Milligram Oral Every 4 hours as needed for Pain , Mild Special Instructions: Temperature Greater than 100.5 Ordering Physician: Rancho Gutierrez MD ?? New Pantoprazole (pantoprazole 40 mg oral delayed release tablet) 1 tab(s) Oral Daily Refills: 2 Ordering Physician: Rancho Gutierrez MD Pickup at [facility] #[id number] New Senna (senna 187 mg oral tablet) 1 tab(s) Oral Twice a day as needed for Constipation Ordering Physician: Rancho Gutierrez MD Changed Metoprolol (metoprolol 25 mg oral tablet) 1 tab(s) Oral Twice a day Duration: 30 Days Ordering Physician: Racquel Kirk NP Changed Metoprolol (metoprolol 25 mg oral tablet) 25 Milligram Oral Twice a day Ordering Physician: Rancho Gutierrez MD Pickup at [facility] #[id number] Unchanged Cholecalciferol (Vitamin D3 1000 intl units oral capsule) 1 capsule Oral Daily Duration: 30 Days Unchanged Simvastatin (simvastatin 10 mg oral tablet) 1 tab(s) Oral Daily at Bedtime Duration: 30 Days Ordering Physician: Racquel Kirk NP Unchanged Terazosin (terazosin 5 mg oral capsule) 1 capsule Oral Daily at Bedtime Duration: 30 Days Ordering Physician: Racquel Kirk NP Pharmacy Information [facility] #[id number]: [address], [place] [id number] [phone] ?? What How Much When Comments Stop Taking apixaban (Eliquis 5 mg oral tablet) 1 tab(s) Oral Twice a day Duration: 30 Days Ordering Physician: Rancho Gutierrez MD Stop Taking Aspirin (aspirin 81 mg oral delayed release tablet) 1 tab(s) Oral Daily Duration: 30 Days Ordering Physician: Rancho Gutierrez MD Prescription Given During Visit Metoprolol (metoprolol 25 mg oral tablet) - 25 mg, By Mouth, 2 times a day, # 60 tablet, 2 Refills,[facility] #[id number], [address] [place] [phone]?? Pantoprazole (pantoprazole 40 mg oral delayed release tablet) - 1 tablet = 40 mg, By Mouth, Daily, # 60 tablet, 2 Refills, [facility] #[id number], [address] [place] [phone]?? Laboratory Results Below is a partial list of the most recent Laboratory test results done prior to this discharge. You may have had other tests and procedures not included in this list. Please discuss all test resultswith your provider. Est Creatinine Clearance - 64.21 mL/min (01/12/2025) Basic Metabolic Panel (01/13/2025) ???Sodium - 139 mmol/L???Potassium - 3.6 mmol/L???Chloride - 103 mmol/L???Bicarbonate Level - 25 mmol/L???Anion Gap - 11 mmol/L???Glucose Level - 109 mg/dL???BUN - 5 mg/dL???Creatinine-Blood - 0.86 mg/dL???Estimated GFR Creatinine - 89 ML/MIN/1.73 M2???Calcium - 9.3 mg/dL CBC (01/13/2025) ???WBC - 5.8 k/mm3???RBC - 2.80 m/mm3???Hgb - 8.4 Gm/dL???Hct - 26.9 %???MCV - 96.1 femtoliters???MCH - 30.0 pg???MCHC - 31.2 Gm/dL???Platelet Count - 161 k/mm3???RDW-SD - 57.7 femtoliters???MPV - 9.5 femtoliters???Nucleated RBC (Automated) - 0.0 #/100 WBC'S???Abs. NRBC - 0.0 k/mm3 COVID-19 (2019 Novel Coronavirus) PCR (01/13/2025) ???COVID-19 PCR Specimen Source - NASAL???COVID-19 PCR Result - NEGATIVE Liver Function Panel (01/10/2025) ???Protein, Total - 6.2 Gm/dL???Albumin - 3.7 Gm/dL???Alkaline Phosphatase - 69 units/L???AST (SGOT) - 19 units/L???ALT (SGPT) - 10 units/L???Bilirubin, Total - 1.2 mg/dL???Bilirubin, Direct - 0.4 mg/dL???Bilirubin, Indirect - 0.8 mg/dL Magnesium Level (01/13/2025) ???Magnesium - 2.0 mg/dL PSA (01/11/2025) ???PSA - 1.2 ng/mL Allergies (NKA means No Known Allergies) NKA Problems Active Problems??(7) Atrial fibrillation?? Hyperlipidemia?? Hypertension?? juxtaductal aortic arch pseudoaneurysm?? Presence of cardiac pacemaker?? S/P aortic aneurysm repair?? Severe obesity (BMI 35.0-39.9) with comorbidity?? Education Materials Below is the list of Educational Leaflet Providered with your Discharge Instructions. Valuables and Belongings I fully understand and agree that [facility] accepts no responsibility for all my personal property including clothing, toilet articles, radios, jewelry, dentures, hearing aids, rings, money, or any other property that is in my possession or is brought to me after admission. I understand certain valuables may be placed in a hospital safe for a short period of time. I understand that the hospital is not liable for loss or damage due to accident, fire, or other natural occurrence while said property is in the safe. I accept full responsibility for any personal property that I keep with me, and will not hold the hospital responsible in case of loss or disappearance. I acknowledge that i have been encouraged to send valuables and belongings home. ?? Review of Valuable and Belonging List: With patient Date for Pt to Sign Valuables/Belongings: 01/09/25 18:42:00 ?? Other Discharge Information ? Pulmonary Rehab Status?? Pulmonary Rehab Discharge Status?? Respiratory Rate: 18 br/min ? Common Emergency Awareness Tips IS IT A STROKE? Act FAST and Check for these signs: FACE Does the face look uneven? ARM Does one arm drift down? SPEECH Does their speech sound strange? TIME Call at any sign of stroke ?? Heart Attack Signs Chest discomfort: Most heart attacks involve discomfort in the center of the chest and lasts more than a few minutes, or goes away and comes back. It can feel like uncomfortable pressure, squeezing, fullness or pain. Discomfort in upper body: Symptoms can include pain or discomfort in one or both arms, back, neck, jaw or stomach. Shortness of breath: With or without discomfort. Other signs: Breaking out in a cold sweat, nausea, or lightheaded. Remember, MINUTES DO MATTER. If you experience any of these heart attack warning signs, call to get immediate medical attention! ?? Smoking can increase your chances of developing chronic health problems and can cause harmful effects to other family members in your house. If you smoke, you are strongly encouraged to quit. Please call [facility] Link at [phone] or 1-560-435[facility] ([phone]) or log in to [email or web address] for referrals to smoking cessation programs. ?? 785 Suicide & Crisis Lifeline is available 10/10 if you or someone you know needs to find a reason to keep living. By calling 464 you'll be connected to a skilled, trained counselor at a crisis center in your area. INPATIENT DISCHARGE INSTRUCTIONS SIGNATURE PAGE KUNALPETER Location:[facility] Registration Date and Time:01/09/2025 18:38 EDT Primary Care Physician: Stephen HARRELL, Drew Huitron, Attending Physician: Brenda HARRELL, Rancho, I PETER [place], have received the above patient education materials/instructions and have verbalized understanding. If ambulance or transport services are being used I further acknowledge being given a choice of service. ?? If you need to contact me, please call me at this number: . Patient/New Car Sales Manager Name: Patient/New Car Sales Manager Signature: Relationship to Patient: Witness Name/Signature: Date: * Asuncion Shin RN: PERFORM Event Display: Patient Education/Instruction Authored Date: [id number] Inpatient Adult Discharge Instructions. [address] [address] Name: PETER MI : 1945?? Visit: 01/09/2025 18:38?? Current Date: 01/14/2025 14:15 ?? Account: [id number]?? Inpatient Adult Discharge Instructions We would like to thank you for allowing us to assist you with your healthcare needs. The following includes patient education materials and information regarding your injury/illness. Our entire staffstrives to provide an excellent experience for our patients and their families. PLEASE ENSURE YOU FOLLOW-UP PER THE INSTRUCTIONS BELOW! ?? YOUR OPINION IS IMPORTANT TO US! Please complete the survey you may receive by mail or email. Your feedback will be used to make improvements to the healthcare experiences of our patients and their families. Surveys are administered by [employer] ?? If further treatment with your primary care physician or another doctor is recommended, it is important for you to keep the appointment. Call your primary care physician or return to the Emergency Department immediately if your condition worsens, fails to improve, or new symptoms develop. If you need to find a doctor, you can call [facility] Link for a referral at [phone] or toll free at [phone] ([phone]) or log in to [email or web address].. ?? [facility], in keeping with [facility] guidance, no longer requires face masks for staff, patientsor visitors in most situations. Similiar to time spent indoors at other locations, there is the chance that you were exposed to repiratory viruses during your time with us (such as flu or COVID-19). If you develop symptoms concerning for a viral respiratory infection, please seek testing (and treatment if indicated) from your medical provider or home test kit. ?? You can view and manage your care through the patient portal or by using a health care da of your choosing. [employer] is a website that allows you to securely view your medical information including your hospital discharge summary, office visit summaries, medications and follow-up visits. You can also request appointments, renew medications, and request access to your medical information using a health care da of your choosing, or just ask a question. You are entitled to know the individuals who participated in your treatment. This information is available within your medical record and will be provided upon your request. You can enroll at [email or web address] or register d uring your next office visit. You have been discharged from [facility], Patient Care Unit: [id number]??. If you have any questions regarding these instructions, including results of studies pending, afteryou leave, please call us and we will be happy to assist you 10/10. [facility] Your Care Team Attending Physician Rancho Gutierrez MD?? Consulting Providers Rancho Gutierrez MD?? Discharging Providers Rancho Gutierrez MD Your Diagnosis Mass of gastroesophageal junction Bone lesion Iron deficiency anemia Anemia due to chronic blood loss Persistent atrial fibrillation Presence of cardiac pacemaker Hypertension Hyperlipidemia S/P aortic aneurysm repair juxtaductal aortic arch pseudoaneurysm Tests Performed Below is a partial list of the tests performed during your hospitalization. You may have had other tests and procedures not included in this list. Please discuss all test results with your provider. Basic Metabolic Panel CBC COVID-19 (2019 Novel Coronavirus) PCR Liver Function Panel Magnesium Level PSA US Doppler Ext Upper Venous Left Basic Metabolic Panel?? CBC?? COVID-19 (2019 Novel Coronavirus) PCR?? Hepatic Function Panel (Liver Function Panel)?? Magnesium Level?? PSA?? US Doppler Ext Upper Venous Left?? Primary Care Provider Drew Mitchell MD? Advance Directive Health Care Proxy on File Yes - Health Care Proxy Discharge Vitals Temperature: 97.3 DegF Height: 168 cm Pulse Rate:??48 bpm??Low Weight: 101.1 kg Respiratory Rate: 18 br/min Body Mass Index:??35.82 kg/m2??High Systolic Blood Pressure: 104 mm Hg Body surface area: 2.17 Diastolic Blood Pressure: 68 mm Hg ?? Oxygen Saturation: 97 % ?? Studies Pending All studies ordered during this hospital stay have been completed unless listed below. Please discuss all pending results with your provider listed above in these instructions. ?? No incomplete studies found?? What to do next Instructions From Your Doctor You were admitted for evaluation of anemia and esophageal mass. ??You underwent??endoscopy and??EUSby GI team and biopsy has been taken.?? You were also evaluated by thoracic surgery. ??You were also evaluated by oncology team??and cardiology team ???Please take medication as mentioned in discharge summary ??? Stop taking your blood thinner Eliquis and aspirin.?? Please get follow-up blood work with yourPCP/oncology??and if hemoglobin is??stable,??then??your PCP/oncology??may resume your aspirin. ?Follow-up with biopsy results. ?Follow-up with??thoracic surgery??as an outpatient ??? Follow-up with oncology as an outpatient ??? Follow-up with??cardiology as an outpatient ??? Follow-up with??gastroenterology as an outpatient ?If you get any symptoms like??high-grade fever, chills, nausea, vomiting, lightheadedness, dizziness??then please seek medical attention ??? For your left upper extremity swelling??and a blood clot,??elevate your limb, apply??warm compression or ice pack as needed for pain. ??You can also take Tylenol.?? Please??seek medical attentionif it does not get better over time. ?? Orders??:Regular Diet :fair :Fair? 01/14/25 13:59:00 EDT?? Scheduled Follow-Up Appointments Monday 4:00 PM EST ?? Type: Return With: Luis Trejo DO Where: [facility] [address] [place] [address] [place] [address]- Status: Pending Discharge Medications PETER [place] :1945 Visit Date:01/09/2025 Medications: Please continue your medications until treatment is completed or stopped by your provider. Medications not listed below should be discontinued. Discuss any questions related to medications with your provider. What How Much When Instructions Next Dose New Acetaminophen (acetaminophen 325 mg oral tablet) 650 Milligram Oral Every 4 hours as needed for Pain , Mild Special Instructions: Temperature Greater than 100.5 Ordering Physician: Rancho Gutierrez MD ?? as needed New Pantoprazole (pantoprazole 40 mg oral delayed release tablet) 1 tab(s) Oral Daily Refills: 2 Ordering Physician: Rancho Gutierrez MD Pickup at [facility] #[id number] tomorrow morning New Senna (senna 187 mg oral tablet) 1 tab(s) Oral Twice a day as needed for Constipation Ordering Physician: Rancho Gutierrez MD as needed Unchanged Cholecalciferol (Vitamin D3 1000 intl units oral capsule) 1 capsule Oral Daily Duration: 30 Days tomorrow morning Unchanged Metoprolol (metoprolol 25 mg oral tablet) 1 tab(s) Oral Twice a day Duration: 30 Days Ordering Physician: Racquel Kirk NP bedtime Unchanged Simvastatin (simvastatin 10 mg oral tablet) 1 tab(s) Oral Daily at Bedtime Duration: 30 Days Ordering Physician: Racquel Kirk NP bedtime Unchanged Terazosin (terazosin 5 mg oral capsule) 1 capsule Oral Daily at Bedtime Duration: 30 Days Ordering Physician: Racquel Kirk NP bedtime Pharmacy Information [facility] #[id number]: [address] [place] [address] [phone] ?? What How Much When Comments Stop Taking apixaban (Eliquis 5 mg oral tablet) 1 tab(s) Oral Twice a day Duration: 30 Days Ordering Physician: Rancho Gutierrez MD Stop Taking Aspirin (aspirin 81 mg oral delayed release tablet) 1 tab(s) Oral Daily Duration: 30 Days Ordering Physician: Rancho Gutierrez MD Prescription Given During Visit Pantoprazole (pantoprazole 40 mg oral delayed release tablet) - 1 tablet = 40 mg, By Mouth, Daily, # 60 tablet, 2 Refills, [facility] #[id number], [address] [place] [id number] [phone]?? Laboratory Results Below is a partial list of the most recent Laboratory test results done prior to this discharge. You may have had other tests and procedures not included in this list. Please discuss all test resultswith your provider. Est Creatinine Clearance - 64.21 mL/min (01/12/2025) Basic Metabolic Panel (01/13/2025) ???Sodium - 139 mmol/L???Potassium - 3.6 mmol/L???Chloride - 103 mmol/L???Bicarbonate Level - 25 mmol/L???Anion Gap - 11 mmol/L???Glucose Level - 109 mg/dL???BUN - 5 mg/dL???Creatinine-Blood - 0.86 mg/dL???Estimated GFR Creatinine - 89 ML/MIN/1.73 M2???Calcium - 9.3 mg/dL CBC (01/13/2025) ???WBC - 5.8 k/mm3???RBC - 2.80 m/mm3???Hgb - 8.4 Gm/dL???Hct - 26.9 %???MCV - 96.1 femtoliters???MCH - 30.0 pg???MCHC - 31.2 Gm/dL???Platelet Count - 161 k/mm3???RDW-SD - 57.7 femtoliters???MPV - 9.5 femtoliters???Nucleated RBC (Automated) - 0.0 #/100 WBC'S???Abs. NRBC - 0.0 k/mm3 COVID-19 (2019 Novel Coronavirus) PCR (01/13/2025) ???COVID-19 PCR Specimen Source - NASAL???COVID-19 PCR Result - NEGATIVE Liver Function Panel (01/10/2025) ???Protein, Total - 6.2 Gm/dL???Albumin - 3.7 Gm/dL???Alkaline Phosphatase - 69 units/L???AST (SGOT) - 19 units/L???ALT (SGPT) - 10 units/L???Bilirubin, Total - 1.2 mg/dL???Bilirubin, Direct - 0.4 mg/dL???Bilirubin, Indirect - 0.8 mg/dL Magnesium Level (01/13/2025) ???Magnesium - 2.0 mg/dL PSA (01/11/2025) ???PSA - 1.2 ng/mL Allergies (NKA means No Known Allergies) NKA Problems Active Problems??(7) Atrial fibrillation?? Hyperlipidemia?? Hypertension?? juxtaductal aortic arch pseudoaneurysm?? Presence of cardiac pacemaker?? S/P aortic aneurysm repair?? Severe obesity (BMI 35.0-39.9) with comorbidity?? Education Materials Below is the list of Educational Leaflet Providered with your Discharge Instructions. Valuables and Belongings I fully understand and agree that [facility] accepts no responsibility for all my personal property including clothing, toilet articles, radios, jewelry, dentures, hearing aids, rings, money, or any other property that is in my possession or is brought to me after admission. I understand certain valuables may be placed in a hospital safe for a short period of time. I understand that the hospital is not liable for loss or damage due to accident, fire, or other natural occurrence while said property is in the safe. I accept full responsibility for any personal property that I keep with me, and will not hold the hospital responsible in case of loss or disappearance. I acknowledge that i have been encouraged to send valuables and belongings home. ?? Review of Valuable and Belonging List: With patient Date for Pt to Sign Valuables/Belongings: 01/09/25 18:42:00 ?? Other Discharge Information ? Pulmonary Rehab Status?? Pulmonary Rehab Discharge Status?? Respiratory Rate: 18 br/min ? Common Emergency Awareness Tips IS IT A STROKE? Act FAST and Check for these signs: FACE Does the face look uneven? ARM Does one arm drift down? SPEECH Does their speech sound strange? TIME Call at any sign of stroke ?? Heart Attack Signs Chest discomfort: Most heart attacks involve discomfort in the center of the chest and lasts more than a few minutes, or goes away and comes back. It can feel like uncomfortable pressure, squeezing, fullness or pain. Discomfort in upper body: Symptoms can include pain or discomfort in one or both arms, back, neck, jaw or stomach. Shortness of breath: With or without discomfort. Other signs: Breaking out in a cold sweat, nausea, or lightheaded. Remember, MINUTES DO MATTER. If you experience any of these heart attack warning signs, call to get immediate medical attention! ?? Smoking can increase your chances of developing chronic health problems and can cause harmful effects to other family members in your house. If you smoke, you are strongly encouraged to quit. Please call [facility] Link at [phone] or 4-296-156[employer] ([phone]) or log in to [email or web address] for referrals to smoking cessation programs. ?? 570 Suicide & Crisis Lifeline is available 10/10 if you or someone you know needs to find a reason to keep living. By calling 512 you'll be connected to a skilled, trained counselor at a crisis center in your area. INPATIENT DISCHARGE INSTRUCTIONS SIGNATURE PAGE PETER [place] Location:[facility] Registration Date and Time:01/09/2025 18:38 EDT Primary Care Physician: Stephen HARRELL, Drew Huitron, Attending Physician: Brenda HARRELL, Rancho, I PETER [place], have received the above patient education materials/instructions and have verbalized understanding. If ambulance or transport services are being used I further acknowledge being given a choice of service. ?? If you need to contact me, please call me at this number: . Patient/New Car Sales Manager Name: Patient/New Car Sales Manager Signature: Relationship to Patient: Witness Name/Signature: Date: * Event Display: Provider Clarification Note Please click on pdf link to open report Consult note * Carlos Manuel HARRELL, Jenny: PERFORM, MODIFY Event Display: Consultation Note Authored Date: Patient: ??PETER [place] ? Age:??79 Years?Sex:??Male?:??1945?LOC:??[facility]?? 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 Patient presented with progressive dyspnea fatigue found to have new onset anemia requiring transfusions.?? Workup suggestive of??GE junction mass now status post endoscopy and biopsy. 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 He has been evaluated by GI as well as??will be seeing oncology for??definitive treatment/prognostication.?? No prior history of CAD PR??CHF??CKD.?? PAD with??thoracicaneurysm repair with deep branching procedure as noted.?? Well- functioning Medtronic pacer based onoffice interrogations in the past as well as known normal LV function.?? EKG with atrial fibrillation with right bundle branch block with left intrafascicular block with worsening IVCD.?? Blood work w ith stable hemoglobin around 8, A1c of 6??normal creatinine. Review of Systems 12 point review of symptoms as noted in the??HPI and reviewed in detail with the patient; pertinentpositives noted otherwise??negative. Physical Exam Vitals & Measurements T:??97.3?F?? HR:??48??(Peripheral)?? RR:??18?? BP:??104/68?? SpO2:??97%?? HT:??168??cm?? WT:??101.1??kg?? BMI:??35.82?? Weight lb/oz: 222 lb 14 oz General:??Pleasant, No apparent??distress; VS as noted HEENT: Pupils equal and reactive, extraocular muscles intact, no pallor no icterus Neck:??Supple, no JVD, no adenopathy,??no thyromegaly,??2+ carotid upstroke,??no carotid bruit Lungs:??Good air entry bilaterally,??no significant crackles, No rales, No??wheeze. Chest:??Normal appearance and symmetric??without deformity Cardiac:??Regular rate and rhythm, no significant??murmur, no??rubs, no??gallops Abdomen:??Soft, nontender, nondistended, positive bowel sounds, no significant??guarding rigidity or rebound, no organomegaly appreciated Extremity:??+ distal pulses, no significant clubbing cyanosis, trace??edema Skin:??Warm well perfused, no rashes noted Musculoskeletal:??No significant deformity with normal range of motion, no CVA tenderness Neuro:??Alert awake oriented x3, no focal neuro deficits,??cranial nerves grossly intact,??remainder exam deferred Psych:??Normal affect, cognition grossly intact Intake and Output Clinical Range's Intake Total? 2390?? Clinical Range's Balance ? 2390?? 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 Patient presented with progressive dyspnea fatigue found to have new onset anemia requiring transfusions.?? Workup suggestive of??GE junction mass now status post endoscopy and biopsy. 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 He has been evaluated by GI as well as??will be seeing oncology for??definitive treatment/prognostication.?? No prior history of CAD PR??CHF??CKD.?? PAD with??thoracicaneurysm repair with deep branching procedure as noted.?? Well- functioning Medtronic pacer based onoffice interrogations in the past as well as known normal LV function.?? EKG with atrial fibrillation with right bundle branch block with left intrafascicular block with worsening IVCD.?? Blood work w ith stable hemoglobin around 8, A1c of 6??normal creatinine. ?? Recommendations: 1.?? Acute blood loss anemia with??GI source from a friable??GE junction mass??now status post endoscopy and biopsy??with GI and oncology follow-up, suspicion for bony metastases.?? In the context ofrecent anemia requiring transfusion, definitely would hold off on the DOAC.?? High [id number] 2 score but his??bleeding risk is real and present. 2.?? He has history of??atherosclerotic thoracic aneurysm s/p repair.?? If hemoglobin remained stable??with no evidence of??persistent GI ooze or melena??would resume aspirin??1 week out from his??biopsy with follow-up of H&H with his primary care providers and oncology. 3.?? A-fib with??significant conduction abnormality??currently rate controlled.?? Would continue small dose of metoprolol.?? He has a normal LV function 4.?? Dyslipidemia on statins. ?? -- Jenny Horowitz MD HFA, Interventional Cardiology Beeper: # [phone] Allergies NKA Home Medications Acetaminophen: 650 mg, By Mouth, Every 4 hours, PRN (Pain , Mild), Temperature Greater than 100.5 Aspirin: 81 mg = 1 tablet, By Mouth, Daily Cholecalciferol: 25 mcg = 1 capsule, By Mouth, Daily Metoprolol: 25 mg = 1 tablet, By Mouth, 2 times a day Pantoprazole: 40 mg = 1 tablet, By Mouth, Daily Senna: 8.6 mg = 1 tablet, By Mouth, 2 times a day, PRN (Constipation) Simvastatin: 10 mg = 1 tablet, By Mouth, Daily at bedtime Terazosin: 5 mg = 1 capsule, By Mouth, Daily at bedtime Hospital Medications Medications (11) Active SCHEDULED: (4) Metoprolol 25mg Tablet (metoprolol 25 mg oral tablet) ??25 mg, By Mouth, 2 times a day NaCl 0.9% Flush 3ml (NaCL 0.9% Flush) ??3 mL, IV Push, Every 8 hours Pantoprazole 40 mg Inj (Pantoprazole Inj) ??40 mg, IV Push Slowly, Every 12 hours Simvastatin 10 mg Tablet (simvastatin 10 mg oral tablet) ??10 mg, By Mouth, Daily at bedtime CONTINUOUS: (0) PRN: (7) Acetaminophen 325 mg Tablet (Acetaminophen Tablet) ??650 mg, By Mouth, Every 4 hours Dextromethorphan-Guaifenesin 20 mg-200 mg/10 mL Liqu UD (Robitussin DM Liquid) ??10 mL, By Mouth, Every 4 hours Melatonin 3 mg Tablet (Melatonin Tablet) ??3 mg, By Mouth, Daily at bedtime NaCl 0.9% Flush 3ml (NaCL 0.9% Flush) ??3 mL, IV Push, Every 8 hours Polyethylene Glycol 17 Gm Powder (MiraLax Powder) ??17 Gm 1 pack/packet, By Mouth, Daily Senna Tablet ??8.6 mg 1 tablet, By Mouth, 2 times a day Simethicone 80 mg Chewable Tablet (Simethicone Tablet) ??80 mg, Chew, 3 times a day Lab Results Cardiology Labs Blood Count & Diff COAG?? General Chemistry?? Cardiac?? WBC: 5.8 k/mm3 (01/13/25) INR:??1.3??High (05/06/24) Sodium: 139 mmol/L (01/13/25) Bilirubin, Total: 1.2 mg/dL (01/10/25) RBC:??2.8 m/mm3??Low (01/13/25) Protime (PT):??13.1 seconds??High (05/06/24) Potassium: 3.6 mmol/L (01/13/25) ?? Hgb:??8.4 Gm/dL??Low (01/13/25) APTT: 26.8 seconds (05/06/24) Chloride: 103 mmol/L (01/13/25) ?? Hct:??26.9 %??Low (01/13/25) ?? Bicarbonate Level: 25 mmol/L (01/13/25) ?? MCV:??96.1 femtoliters??High (01/13/25) ?? Anion Gap: 11 mmol/L (01/13/25) ?? Platelet Count: 161 k/mm3 (01/13/25) ?? Glucose Level:??109 mg/dL??High (01/13/25) ? Hemoglobin A1C (Monitoring):??6 %??High (04/29/24) ? BUN:??5 mg/dL??Low (01/13/25) ? BUN: 11 mg/dL (04/29/24) ? Creatinine-Blood: 0.86 mg/dL (01/13/25) ? Estimated GFR Creatinine: 89 ML/MIN/1.73 M2 (01/13/25) ? Calcium: 9.3 mg/dL (01/13/25) ? Magnesium: 2 mg/dL (01/13/25) ? Protein, Total: 6.2 Gm/dL (01/10/25) ? Albumin: 3.7 Gm/dL (01/10/25) ? Alkaline Phosphatase: 69 units/L (01/10/25) ? AST (SGOT): 19 units/L (01/10/25) ? ALT (SGPT): 10 units/L (01/10/25) ?? Diagnostic Impression CT CT Angio Abdomen and Pelvis ?? 18:12:02 IMPRESSION: ?? 1. No evidence of active gastrointestinal bleeding. 2. Stable thoracic aortic aneurysm status post repair. 3. Soft tissue mass of the mid esophagus measuring up to 0.7 cm. Follow-up per oncology. 4. New sclerotic lesion of the left pubic symphysis, concerning for osseous metastasis. Follow-up per oncology. 5. No acute intrathoracic abnormality. No evidence of intrathoracic metastatic disease. ? I have personally reviewed the images and I agree with this report. WSN: [id number] ? Ordering Physician: Jayson Gorman ?? Signed By: Nir HARRELL, Sanjiv Huitron ECG ECG 12-Lead ?? 11:14:02 Please click on pdf link to open report ?? Signed By: Charbel HARRELL, Dragan Reyes ?? ECG 12-Lead ?? 11:14:02 Ventricular Rate: 86 BPM Atrial Rate: 96 BPM QRS Duration: 162 ms Q-T Interval: 446 ms QTC Calculation(Bazett): 533 ms R [place]: -22 degrees T [place]: 268 degrees Atrial fibrillation with slow ventricular rate Right bundle branch block Ventricular escape rhythm T wave abnormality, consider lateral ischemia Abnormal ECG Confirmed ?? Signed By: Charbel HARRELL, Dragan Reyes Echo Echocardiogram - Complete ?? 09:43:12 Summary The left ventricle is poorly visualized despite contrast enhancement. The parasternal views are mostly inadequate and the apical views are foreshortened. The left ventricular size is at the upper limit of normal. The left ventricular wall thickness is increased. The LV systolic function appears mildly to moderately reduced . The left ventricular ejection fraction is 35-45 %. There is septal dyssynergy consistent with LBBB or ventricular paced rhythm. Unable to assess diastolic function . ?? The left atrium is severely dilated. ?? The right ventricle is poorly visualized. The right ventricle is moderately to severely dilated. Right ventricular systolic function is moderately reduced. A pacer/ICD wire is seen in the right ventricle. ?? Impressions Severely technically limited study despite ultrasound enhancing agent ?? Recommendation Consider cardiac MRI/MRA for better assessment of biventricular function. ?? Comparison No prior study available for comparison. ?? Signature ?? Signed By: Jennifer HARRELL, Suraj Loera VL Studies VL Carotid Duplex Scan Bilat ?? 09:09:47 Summary: Right Side: No stenosis seen in the Internal Carotid Artery, previous velocities of 96.5 cm/s. Antegrade flow in the Vertebral Artery. Multiphasic flow is seen in the Subclavian Artery. ?? Left Side: 1-49% stenosis in the Internal Carotid Artery, previously 92.4 cm/s. Antegrade flow in the Vertebral Artery. Multiphasic flow is seen in the Subclavian Artery. ?? Comparison is made to the previous ultrasound study dated 03/15/23. ? Signed By: Najma Mathews MD Cardiac Cath Procedure Cardiac Cath Procedure ?? 09:39:00 Conclusions ?? Diagnostic Summary ?? There is a large size aortic arch stent graft present. Brachiocephalic trunk is partially covered by upper end of the stent graft. Left heart catheterization and coronary angiogram performed via right radial access. 5 [place] diagnostic catheters were used with the help of stiff guidewire to cannulate right as well as left coronary arteries. Aortic valve could not be crossed due to heavily tortuous brachiocephalic, subclavian arteries and a very steep aortic angle. ?? Right coronary artery is very large in caliber and dominant vessel. 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 There is mild diffuse disease of RCA noted. Left main is large in caliber with minimal disease. LAD and LCx are large in caliber with mild diffuse disease. Aortic valve was not calcified by fluoroscopy. The valve was not crossed during this procedure. There is normal systemic pressures noted. ?? Diagnostic Recommendations ?? Proceed with planned surgery by Dr. Gabriel Gold. Continue to address blood pressure control. ?? ACC Diagnostic Recommendations: Other cardiac therapy without CABG or PCI. ?? Signatures ?? Signed By: Elayne Corcoran MD Problem List/Past Medical History Ongoing Atrial fibrillation Hyperlipidemia Hypertension juxtaductal aortic arch pseudoaneurysm Presence of cardiac pacemaker S/P aortic aneurysm repair Severe obesity (BMI 35.0-39.9) with comorbidity Procedure/Surgical History Esophagogastroduodenoscopy, flexible, transoral; with endoscopic ultrasound examination limited to the esophagus, stomach or duodenum, and adjacent structures: 01/13/25 Aortic aneurysm repair: 05/06/24 Patient Instructions You were admitted for evaluation of anemia and esophageal mass. ??You underwent??endoscopy and??EUSby GI team and biopsy has been taken.?? You were also evaluated by thoracic surgery. ??You were also evaluated by oncology team??and cardiology team ???Please take medication as mentioned in discharge summary ?Follow-up with biopsy results. ?Follow-up with??thoracic surgery??as an outpatient ??? Follow-up with oncology as an outpatient ??? Follow-up with??cardiology as an outpatient ??? Follow-up with??gastroenterology as an outpatient ?If you get any symptoms like??high-grade fever, chills, nausea, vomiting, lightheadedness, dizziness??then please seek medical attention ??? For your left upper extremity swelling??and a blood clot,??elevate your limb, apply??warm compression or ice pack as needed for pain. ??You can also take Tylenol.?? Please??seek medical attentionif it does not get better over time. Social History Alcohol Use:Never Substance Abuse Use:Past Tobacco Use:Never (less than 100 in lifetime) Family History No family history recorded. Electronically Signed on 01/14/25 12:51 PM Carlos Manuel HARRELL, Amir * Lili Buck DO: PERFORM, MODIFY, MODIFY Event Display: Consultation Note Authored Date: Patient: ??PETER MI ? Age:??79 Years?Sex:??Male?:??1945?LOC:??[facility]?? Chief Complaint/Reason for Consultation Reason for Consult: pt with esophageal mass and bleeding, s/p EGD at [facility]. For post EGD f/u and also to evaluate for EUS, thoracic recommending it Consulting Provider:??Rancho Gutierrez MD History of Present Illness 79-year-old male with a medical history significant for atrial fibrillation on Eliquis, pacemaker, HTN, HLD, juxta ductal aortic arch pseudoaneurysm, distal thoracic aortic arch aneurysm s/p endovascular stent repair and deep branching of left common carotid in April this year, severe obesity who presented to [facility] on 01/06 with shortness of breath and fatigue over the past 2 days, admitted for symptomatic anemia with concern for GI bleed, found to have a bleeding esophageal mass transferred to [facility] for thoracic surgery and oncology consultation. GI is being consulted for consideration of EUS. ?? In addition to SOB and fatigue, the patient also reported black tarry stools last week which he hasnever had before. He does occasionally see small amounts of bright red blood when straining to havea BM. He does take Miralax PRN for intermittent constipation with good effect. No abdominal pain, nausea, vomiting. He does take Ibprofen on occasion but rarely. No alcohol or tobacco use, no recreational drug use. No dysphagia, unexplained weight loss, fevers, chills, night sweats. No family history of GI malignancies or disorder. ?? Peter has slowly become anemic over the year; his Hgb over the course of this year has gone from 13.5 on 04/29 post-operatively down to 7.1 on 01/06. He has received 2 units of blood thus far since being admitted. ?? He was seen by GI at [facility] (Dr. Metz) and underwent an EGD on 01/08 which showed a mass in the JE jxn (biopsy) with 1cm submucosal lesion in the antrum (biopsy). There was blood in the fundus. Dr. Metz recommended IV PPI, to hold all anti-coagulation, and to get input from IR for embolization tocontrol the bleeding. He also recommended CT chest/abd/pelvis to assess for mets and transfer to [facility] for thoracic and oncology consultation. CTA abd/pelvis was done and showed no evidence of active GI bleeding. CTA abd/pelvis along with chest CT with contrast did show a soft tissue mass of the mid esophagus measuring up to 0.7cm along with a new sclerotic lesion of the left pubic symphysis, concerning for osseous mets. ?? Peter was seen by thoracic surgery today who recommended EUS and PET, and to FU on biopsy results.??His Eliquis remains on hold. He remains hemodynamically stable. Hgb is stable at 7.4. ?? Review of Systems Pertinent negative and positives included in subjective above.?? Objective Vital Signs?? Temperature: 98.3 DegF (01/10/25::00) Temperature Route: Oral (01/10/25::) Pulse Rate: 70 bpm (01/10/25::00) Respiratory Rate: 18 br/min (01/10/25::00) Systolic Blood Pressure: 132 mm Hg (01/10/25::) Diastolic Blood Pressure: 70 mm Hg (01/10/25::00) Blood pressure sites: Arm, left (01/10/25::00) Mean Arterial Pressure: 91 mm Hg (01/10/25::00) Mean Arterial Pressure Monitored: 87 mm Hg (01/10/25:00:00) Pulse Pressure: 62 mm Hg (01/10/25::00) Oxygen Saturation: 98 % (01/10/25::00) Mode of Delivery (Oxygen): Room air (10/24/25 20:01:00) Early Warning Score: 3 (01/10/25 20:01:51) ? Physical Exam Constitutional: Pleasant and cooperative, not in acute distress. Head: Normocephalic. Eyes: Extraocular muscles intact. Ear, Nose and Throat: Oropharynx clear, mucous membranes moist. Ears and nose without masses, lesions or deformities. Trachea midline. Neck: Full range of motion. Respiratory: Non-labored breathing, breathing comfortably on room air. Cardiovascular:??Appears well perfused. Gastrointestinal: Abdomen soft, non-tender, non-distended. Normal bowel sounds. Genitourinary: No suprapubic tenderness. Neurologic: Alert and oriented x3. Speech clear, comprehension intact. No gross focal neurological deficits. Skin: No acute or concerning rashes or lesions. No petechiae or purpura.?? Musculoskeletal: No gross deformities. Normal range of motion, moving all 4 extremities spontaneously. Psychiatric: Normal mood and affect without obvious signs of anxiety or depression. Assessment/Plan 79-year-old male with a medical history significant for atrial fibrillation on Eliquis, pacemaker, HTN, HLD, juxta ductal aortic arch pseudoaneurysm, distal thoracic aortic arch aneurysm s/p endovascular stent repair and deep branching of left common carotid in April this year, severe obesity who presented to [facility] on 01/06 with shortness of breath and fatigue over the past 2 days, admitted for symptomatic anemia with concern for GI bleed, found to have a bleeding esophageal mass transferred to [facility] for thoracic surgery and oncology consultation. GI is being consulted for consideration of EUS. ?? #Esophageal mass #Acute blood loss anemia No dysphagia or odynophagia. S/p EGD 01/06. Bleeding mass with drop in Hgb requiring transfusions. Hgb currently stable, no active bleed seen on CTA. CT chest/abd/pelvis showing concern for mets to??left pubic symphysis. Thoracic surgery requesting EUS for staging. ?? RECOMMENDATIONS: -Plan for EUS on Monday, 01/13- NPO at midnight 01/13 -Continue to trend Hgb closely, transfuse for Hgb <7 -Continue IV PPI -Continue to hold anticoagulation -FU biopsies -Remainder of care per primary team ?? Thank you for consulting Gastroenterology. Will will continue to follow along. ? Patient reviewed with supervising??attending Dr. Anand. ?? Lili Buck, DO Gastroenterology Fellow, PGY-4 Pager# [phone] ? Histories Allergies Allergies ?(Active and Proposed Allergies Only) NKA? (Severity: Unknown severity, Onset: Unknown) ? Past Medical History/Problem List Active Problems(7) Atrial fibrillation Hyperlipidemia Hypertension juxtaductal aortic arch pseudoaneurysm Presence of cardiac pacemaker S/P aortic aneurysm repair Severe obesity (BMI 35.0-39.9) with comorbidity ? Past Surgical History Aortic aneurysm repair: 05/06/24 ? Social History Alcohol Details:??Use: Never. Substance Abuse Details:??Use: Past. Tobacco Details:??Use: Never (less than 100 in lifetime). ? Family History No Family History documented. ? Medications Home Medications apixaban (Eliquis 5 mg oral tablet)??1 tab(s) 5 Milligram By Mouth 2 times a day for 30 Days Aspirin (aspirin 81 mg oral delayed release tablet)??1 tab(s) 81 Milligram By Mouth Daily for 30 Days Cholecalciferol (Vitamin D3 1000 intl units oral capsule)??1 capsule 25 Microgram By Mouth Daily for 30 Days Metoprolol (metoprolol 25 mg oral tablet)??25 Milligram 1 tablet By Mouth 2 times a day for 30 Days Simvastatin (simvastatin 10 mg oral tablet)??10 Milligram 1 tablet By Mouth Daily at bedtime for 30Days Terazosin (terazosin 5 mg oral capsule)??5 Milligram 1 capsule By Mouth Daily at bedtime for 30 Days ? Inpatient Medications Medications (11) Active SCHEDULED: (4) Metoprolol 25mg Tablet (metoprolol 25 mg oral tablet) ??25 mg, By Mouth, 2 times a day NaCl 0.9% Flush 3ml (NaCL 0.9% Flush) ??3 mL, IV Push, Every 8 hours Pantoprazole 40 mg Inj (Pantoprazole Inj) ??40 mg, IV Push Slowly, Every 12 hours Simvastatin 10 mg Tablet (simvastatin 10 mg oral tablet) ??10 mg, By Mouth, Daily at bedtime CONTINUOUS: (0) PRN: (7) Acetaminophen 325 mg Tablet (Acetaminophen Tablet) ??650 mg, By Mouth, Every 4 hours Dextromethorphan-Guaifenesin 20 mg-200 mg/10 mL Liqu UD (Robitussin DM Liquid) ??10 mL, By Mouth, Every 4 hours Melatonin 3 mg Tablet (Melatonin Tablet) ??3 mg, By Mouth, Daily at bedtime NaCl 0.9% Flush 3ml (NaCL 0.9% Flush) ??3 mL, IV Push, Every 8 hours Polyethylene Glycol 17 Gm Powder (MiraLax Powder) ??17 Gm 1 pack/packet, By Mouth, Daily Senna Tablet ??8.6 mg 1 tablet, By Mouth, 2 times a day Simethicone 80 mg Chewable Tablet (Simethicone Tablet) ??80 mg, Chew, 3 times a day ? Results Recent Labs BLOOD COUNT & DIFF WBC 6.5 k/mm3 ()?? 01/10/2025 08:10 RBC 2.53 m/mm3 (Low)?? 01/10/2025 08:10 Hgb 7.4 Gm/dL (Low)?? 01/10/2025 08:10 Hct 23.9 % (Low)?? 01/10/2025 08:10 MCV 94.5 femtoliters (High)?? 01/10/2025 08:10 MCH 29.2 pg ()?? 01/10/2025 08:10 MCHC 31.0 Gm/dL (Low)?? 01/10/2025 08:10 Platelet Count 144 k/mm3 (Low)?? 01/10/2025 08:10 RDW-SD 56.8 femtoliters (High)?? 01/10/2025 08:10 MPV 9.2 femtoliters (Low)?? 01/10/2025 08:10 Nucleated RBC (Automated) 0.0 #/100 WBC'S ()?? 01/10/2025 08:10 Abs. NRBC 0.0 k/mm3 ()?? 01/10/2025 08:10 ?? CHEM GENERAL Sodium 140 mmol/L ()?? 01/10/2025 08:10 Potassium 4.0 mmol/L ()?? 01/10/2025 08:10 Chloride 105 mmol/L ()?? 01/10/2025 08:10 Bicarbonate Level 24 mmol/L ()?? 01/10/2025 08:10 Anion Gap 11 mmol/L ()?? 01/10/2025 08:10 Glucose Level 103 mg/dL (High)?? 01/10/2025 08:10 BUN 9 mg/dL ()?? 01/10/2025 08:10 Creatinine-Blood 0.84 mg/dL ()?? 01/10/2025 08:10 Estimated GFR Creatinine 89 ML/MIN/1.73 M2 ()?? 01/10/2025 08:10 Calcium 9.2 mg/dL ()?? 01/10/2025 08:10 Phosphorus 3.2 mg/dL ()?? 01/09/2025 07:33 Magnesium 2.0 mg/dL ()?? 01/10/2025 08:10 Protein, Total 6.2 Gm/dL ()?? 01/10/2025 08:10 Albumin 3.7 Gm/dL ()?? 01/10/2025 08:10 Alkaline Phosphatase 69 units/L ()?? 01/10/2025 08:10 AST (SGOT) 19 units/L ()?? 01/10/2025 08:10 ALT (SGPT) 10 units/L ()?? 01/10/2025 08:10 Bilirubin, Total 1.2 mg/dL ()?? 01/10/2025 08:10 Bilirubin, Direct 0.4 mg/dL (High)?? 01/10/2025 08:10 Bilirubin, Indirect 0.8 mg/dL (High)?? 01/10/2025 08:10 ?? URINE OTHER Est Creatinine Clearance 65.74 mL/min ()?? 01/10/2025 08:52 ?? VIROLOGY COVID-19 PCR Specimen Source NASAL ()?? 01/09/2025 18:50 COVID-19 PCR Result NEGATIVE ()?? 01/09/2025 18:50 ? Electronically Signed on 01/10/25 10:12 PM Lili Buck DO, MD, David: PERFORM Event Display: Consultation Note Authored Date: [id number] Attending Attestation:??I have seen and evaluated this patient. ??I have discussed the case and itsmanagement with the fellow and agree with the findings and plan as documented in the fellow???s note.?? Electronically Signed on 01/11/25 07:47 AM Cheng HARRELL, Tree * Radha Loera DO: PERFORM Event Display: Consultation Note Authored Date: Patient: ??PETER MI ? Age:??79 Years?Sex:??Male?:??1945?LOC:??[facility]?? Chief Complaint/Reason for Consult GEJ mass seen on EGD History of Present Illness Peter Mi is a 79yo male with PMH of a fib (on Eliquis), HTN, HLD, pacemaker, and thoracic aortic aneurysm??s/p TEVAR (04/2024) and open left carotid to subclavian bypass (2021) who is admittedto [facility] with exertional dyspnea and??weakness??as well as melanotic stools.?? Thoracic surgery is con sulted for??mass noted at GE junction on EGD on 01/08. ?? Peter reports??last week he??was walking??when he noticed??significant shortness of breath and??weakness.?? He reports previously he had been??ambulating without difficulty without shortness of breath or chest pain.?? Given the symptoms, he presented to [facility].?? At that time labs revealed anemia??with??hemoglobin of 7.2.?? Patient reported??recent??melanotic stools, black in color.?? While at [facility], he underwent blood transfusion (2??x pRBCs) as well as iron transfusion, Eliquis was held.?? GI was consulted and patient underwent EGD??which revealed mass at the GE junction??which appeared to be fungating and partially obstructing.??Additionally while at [facility], patient underwent CT chest abdomen pelvis which was read as concerning for soft tissue mass of the mid esophagus measuring up to??0.7cm as well as new sclerotic lesion of the left pubic symphysis concerning for osseous metastasis.??He??reports no difficulty??tolerating PO.??States he can eat??what ever he wants??including s teak without trouble.?? Upon further questioning, does report he occasionally feels??food gets stuck in his chest.?? Denies difficulty swallowing, chest pain, shortness of breath.?? Denies??symptoms of heartburn.?? Denies weight loss, fevers, chills, night sweats.??Per chart review he has lost about 15lbs since 04/2024. Reports his shortness of breath has been slowly worsening over the last several months.? Otherwise, at this time he reports he is feeling okay overall. He does not feel??short of breathat this time and is able to eat his food without too much trouble. He denies tobacco smoking, current or former. Reports former marijuana smoking. Denies alcohol use. 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 Review of Systems Negative except as above.?? Physical Exam Vitals & Measurements T:??98.5?F?? HR:??48??(Peripheral)?? RR:??17?? BP:??132/66?? SpO2:??95%?? HT:??168??cm?? WT:??101.1??kg?? BMI:??35.82?? Constitutional: Alert, in no distress. Mental Status: Oriented to person, place and time. Head/Neck:??Normocephalic, atraumatic.?? Respiratory: Normal respiratory rate and effort. ?? Cardiovascular: Regular rate and rhythm. ?? Chest wall: Median sternotomy incision well healed.??Subclavicular incision well healed. Pacemaker in place.?? Gastrointestinal: Abdomen soft, non-distended, non-tender Skin: Skin is warm and dry Musculoskeletal: No edema. No gross deformities. Neuro: A&O x 4. Moves all extremities spontaneously. Psychiatric: Normal mood and affect Assessment/Plan Assessment:??Peter Mi is a 79yo male with PMH of a fib (on Eliquis), HTN, HLD, pacemaker, and thoracic aortic aneurysm??s/p TEVAR (04/2024) and open left carotid to subclavian bypass (2021) who is admitted to [facility] [place]??with shortness of breath,??weakness,??and melanotic stools,??found to??have a fungating mass at the gastroesophageal junction on EGD, biopsies pending. Thoracic surgery was consulted for recommendations. ?? Diagnosis: Esophageal mass Comment: Patient underwent EGD with biopsy??on 01/08/25, found to have a partially obstructing fungating mass at the GEJ. Biopsies are still pending at this time, however appearance concerning for malignancy.??He underwent CT C/A/P with IV contrast which shows 0.7cm mass at the mid esophagus as well as sclerotic lesion of the??left pubic symphysis measuring 1.1cm concerning for possible metastasis. He is able to tolerate PO at this time without concern for??obstruction??of the esophagus.??Giventhe concerning appearance of the mass on EGD, he should undergo staging workup while awaiting biopsy results. ?? Recommendations: EUS PET CT Follow up biopsy results CT C/A/P with IV contrast (completed 01/08) Follow up in thoracic surgery clinic to discuss results ?? Discussed with Dr. Trejo Please page [place] [id number]. Problem List/Past Medical History Ongoing Atrial fibrillation Hyperlipidemia Hypertension juxtaductal aortic arch pseudoaneurysm Presence of cardiac pacemaker S/P aortic aneurysm repair Severe obesity (BMI 35.0-39.9) with comorbidity Procedure/Surgical History TEVAR Open left carotid to subclavian bypass Home Medications apixaban: 5 mg = 1 tablet, By Mouth, 2 times a day Aspirin: 81 mg = 1 tablet, By Mouth, Daily Cholecalciferol: 25 mcg = 1 capsule, By Mouth, Daily Metoprolol: 25 mg = 1 tablet, By Mouth, 2 times a day Simvastatin: 10 mg = 1 tablet, By Mouth, Daily at bedtime Terazosin: 5 mg = 1 capsule, By Mouth, Daily at bedtime Allergies NKA Social History Alcohol Use:Never Substance Abuse Use:Past Tobacco Use:Never (less than 100 in lifetime) Family History No family history recorded. Radiology EGD 01/08/25: Impression: Mass in the gastroesophageal junction. (Biopsy). 1cm submucosal lesion in antrum. Blood in the fundus. Normal mucosa in the whole examined duodenum. Normal mucosa int he whole stomach. ?? CT Chest/Abdomen/Pelvis 01/08/25: IMPRESSION:?? 1.??No evidence of active gastrointestinal bleeding. 2.??Stable thoracic aortic aneurysm status post repair. 3.??Soft tissue mass of the mid esophagus measuring up to 0.7 cm. Follow-up per oncology. 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 Follow-up per oncology.5.??No acute intrathoracic abnormality. No evidence of intrathoracic metastatic disease. Lab Results Labs Last 24 Hours BLOOD COUNT & DIFF ? Event Name?? Event Result?? Date/Time?? WBC 6.5 k/mm3 01/10/25 08:10:00 RBC 2.53 m/mm3??Low 01/10/25 08:10:00 Hgb 7.4 Gm/dL??Low 01/10/25 08:10:00 Hct 23.9 %??Low 01/10/25 08:10:00 MCV 94.5 femtoliters??High 01/10/25 08:10:00 MCH 29.2 pg 01/10/25 08:10:00 MCHC 31 Gm/dL??Low 01/10/25 08:10:00 Platelet Count 144 k/mm3??Low 01/10/25 08:10:00 MPV 9.2 femtoliters??Low 01/10/25 08:10:00 Nucleated RBC (Automated) 0 #/100 WBC'S 01/10/25 08:10:00 ? CHEM GENERAL ? Event Name?? Event Result?? Date/Time?? Sodium 140 mmol/L 01/10/25 08:10:00 Chloride 105 mmol/L 01/10/25 08:10:00 Bicarbonate Level 24 mmol/L 01/10/25 08:10:00 Anion Gap 11 mmol/L 01/10/25 08:10:00 Glucose Level 103 mg/dL??High 01/10/25 08:10:00 BUN 9 mg/dL 01/10/25 08:10:00 Creatinine-Blood 0.84 mg/dL 01/10/25 08:10:00 Magnesium 2 mg/dL 01/10/25 08:10:00 Alkaline Phosphatase 69 units/L 01/10/25 08:10:00 AST (SGOT) 19 units/L 01/10/25 08:10:00 ALT (SGPT) 10 units/L 01/10/25 08:10:00 Bilirubin, Total 1.2 mg/dL 01/10/25 08:10:00 Bilirubin, Direct 0.4 mg/dL??High 01/10/25 08:10:00 Bilirubin, Indirect 0.8 mg/dL??High 01/10/25 08:10:00 ? Electronically Signed on 01/10/25 03:12 PM Evaristo DORadha Laura DOLuis Patient Care team information Care Team Personnel Name: Drew Mitchell MD Position: Reference Physician Member Role: PCP Address: [address] [place] [address] Telecom: Name: Aleksandra Olson RN Position: [facility] RN Member Role: Primary Care Nurse Name: Dali Jarquin RN Position: [facility] RN Supv Member Role: Primary Care Nurse Name: Nicole Mcclure RN Position: [facility] Decay Control Operator Member Role: Primary Care Nurse Name: Keren Hampton RN Position: [facility] RN Member Role: Primary Care Nurse Name: Karissa Martin RN Position: [facility] RN Member Role: Primary Care Nurse Name: Christy Lloyd RN Position: [facility] RN Member Role: Primary Care Nurse Name: Maryann Gunter RN Position: [facility] RN Member Role: Primary Care Nurse Name: Hailey Olsen RN Position: [facility] RN Member Role: Primary Care Nurse Name: Zahra Hylton RN Position: [facility] RN Member Role: Primary Care Nurse Name: Katie Murray RN Position: [facility] RN Member Role: Primary Care Nurse Name: Vonda Adkins RN Position: [facility] RN Member Role: Primary Care Nurse Name: Johana Dumont RN, I Position: [facility] RN Member Role: Primary Care Nurse Care Team Related Persons Name: THEO CONTRERAS Name: CASTILLO [place] Name: SLOANE WEINER Insurance Providers Guarantor name: PETER [place] [employer] Plan Information #: 1 Payer: [employer] Payer Identifier: FIDENCIO Member Number: [id number] Group Number: [id number] Subscriber Identifier: [id number] Relationship to Subscriber: self Coverage Type: Commercial Managed Care - O Coverage Verification Date: NA Telecom: NA Address: NA Health Plan Information #: 2 Payer: MEDICARE B Payer Identifier: FIDENCIO Member Number: [id number] Group Number: [id number] Subscriber Identifier: NA Relationship to Subscriber: self Coverage Type: NA Coverage Verification Date: NA Telecom: NA Address: NA
--- NOTE | 2025-01-16 09:10 | MHC.PC.OV ---
Vital Signs 01/16/25 09:11 Height 5 ft 9 in Weight 222 lb 6 oz BMI 32.8 BP 102/64 Blood Pressure Location Rt brachial Position Standing Respiration 18 Pulse 54 Pulse Source Pulse Oximeter Temp 97.1 F Temp Source Core Pulse Oximetry (%) 96 Oxygen Delivery Method Room Air Intake Visit Reasons: [facility] [place] 01/14 Studio Control Operator Required: No Accompanied by: Self / Same As Patient Allergies No Known Allergies Allergy (Verified 01/16/25 09:25) Medication List - Last Reconciled 01/16/25 by WALTER Demarco apixaban 5 mg PO BID aspirin 81 mg PO DAILY metoprolol succinate ER 50 mg PO DAILY simvastatin 10 mg PO BEDTIME 90 days terazosin 5 mg PO DAILY 90 days Tobacco use date assessed: 01/16/25 Fall risk assessment: No Falls in past year Last assessed Fall Risk: 01/16/25 Dental Screening Dental Screen Date: 01/16/25 Did you have a dental visit in the last 12 months?: No Did you have a dental problem in the last 6 months where you did not have access to dental care?: No Was dental information given to patient?: No HPI [facility] [place] 01/14 HPI Details The patient is a 79-year-old male with a history of AFib on Eliquis, HTN, HLD, juxtaductal aortic arch pseudoaneurysm, distal thoracic aortic arch aneurysm status post endovascular stent repair and 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 He was hospitalized for one week and was discharged yesterday. During his hospitalization, he underwent two endoscopies which revealed a fungating mass of malignant appearance with ulceration and oozing blood at the esophageal junction, causing partial obstruction. Multiple cold forceps biopsies were performed. Due to the gastrointestinal bleed, the patient developed anemia and received two units of blood. His hemoglobin was 8.4 g/dL three days ago. He was instructed to stop taking his Eliquis. The patient reports his stools were previously dark but have been a normal color since his discharge. The patient was initially at [facility] and was transferred to [facility] for a higher level of care where he was seen by gastroenterology, thoracic surgery, and oncology. He is awaiting appointments with these specialists. He has a bi architect, Dr. Horowitz, whom he saw two to three weeks ago and has a future appointment with in March. He also developed a superficial cephalic vein thrombosis in the left arm from a needle stick during his hospital stay. [facility] Medical History Aneurysm of the aortic arch, without rupture Normal colonoscopy (~04/23/08) Sick sinus syndrome Obesity (BMI 30-39.9) Benign prostatic hyperplasia with urinary frequency Erectile dysfunction Vitamin D deficiency Arthralgia Ureterolithiasis Low TSH level Pure hypercholesterolemia Chronic atrial fibrillation Coronary artery disease Surgical History Status post endovascular aneurysm repair (EVAR) (~05/06/24) Status post endovascular aneurysm repair (EVAR) (~01/18/22) Hx of colonoscopy (~04/2008) S/P ICD (internal cardiac defibrillator) procedure Hx of right inguinal hernia repair (~10/2015) Family History Mother Hypertension Father Kidney problem Social History Housing: House Alcohol intake: former Patient Tobacco Use Status: Never used Tobacco e-Cigarette/Vaping Use: Never Used Second Hand Smoke Exposure: Yes service: No Current occupational status: employed 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 3. Trouble falling or staying asleep, or sleeping too much: not at all 4. Feeling tired or having little energy: not at all 5. Poor appetite or overeating: not at all 6. Feeling bad about yourself - or that you are a failure or have let yourself or your family down: not at all 7. Trouble concentrating on things, such as reading the newspaper or watching television: not at all 8. Moving or speaking so slowly that other people could have noticed. Or the opposite - being so fidgety or restless that you have been moving around a lot more than usual: not at all 9. Thoughts that you would be better off or of hurting yourself in some way: not at all Depression Screening Interpretation: Negative Depression Screening Done: Yes Source: Developed by Drs. Kimani Hugo, Darryl Curran and colleagues, with an educational remington from [employer]. Thrive Questionnaire Date Thrive assessed: 07/23/24 I am a: Patient What is your living situation today?: I have a steady place to live Within the past 12 months, did the food you bought not last and you didn't have the money to get more?: Never true Within the past 12 months, did you worry whether your food would run out before you got money to buy more?: Never true Do you have trouble paying for medicines?: No Do you have trouble getting transportation to medical appointments?: No Do you have trouble paying your heating and electricity bill?: No Do you have trouble taking care of your child, family member or friend?: No Do you have trouble with day-to-day activities such as bathing, preparing meals, shopping, managing finances, etc.?: No Are you currently unemployed and looking for a job?: No Are you interested in more education?: No Please select the resources that you would like help with: None Currently or been in a relationship where the following occur: No concerns reported THRIVE Score: 0 AUDIT C Alcohol Use Questionnaire (AUDIT-C) 1. How often do you have a drink containing alcohol?: Never Total Score: 0 RUTH ANN-7 AMB Questionnaire RUTH ANN-7 Date RUTH ANN - 7 assessed: 07/23/24 Feeling nervous, anxious, or on edge: 0 = Not at all Not being able to stop or control worryin = Not at all Worrying too much about different things: 0 = Not at all Trouble relaxin = Not at all Being so restless that it is hard to sit still: 0 = Not at all Becoming easily annoyed or irritable: 0 = Not at all Feeling afraid as if something awful might happen: 0 = Not at all Total RUTH ANN-7 score (0-4 normal; 5-9 mild; 10-14 moderate; 15-21 severe): 0 Source: Developed by Joleen Iverson Kurt Kroenke and colleagues, with an educational remington from [employer]. Review of Systems Const Denies chills, Denies fatigue, Denies fever(s) and Denies headache(s) ENT Denies dysphagia, Denies dizziness, Denies otalgia, Denies headache(s), Denies neck pain, Denies odynophagia, Denies sinus pain and Denies sore throat Card Denies chest pain, Denies palpitations and Denies dyspnea Resp Denies chest congestion, Denies cough and Denies dyspnea GI Denies abdominal pain, Denies constipation, Denies dysphagia, Denies heartburn, Denies diarrhea, Denies nausea, Denies odynophagia and Denies vomiting Denies hematuria, Denies difficulty urinating, Denies dysuria and Reports urinary frequency (Rx helps with symptoms) Musc Denies back pain, Denies arthralgias and Denies neck pain Skin/Breast Denies rash Neuro Denies dizziness and Denies headache(s) Endo Denies fatigue and Denies palpitations Physical exam (Primary Care) Vital Signs: Last Vital Signs Temp 97.1 F 01/16/25 09:11 Pulse 54 01/16/25 09:11 Resp 18 01/16/25 09:11 BP 102/64 01/16/25 09:11 Pulse Ox 96 01/16/25 09:11 Oxygen Delivery Method Room Air 01/16/25 09:11 BMI result Body Mass Index 32.8 Tobacco/Smoking Status: Tobacco use Status Tobacco use date assessed 01/16/25 01/16/25 09:22 Patient Tobacco Use Status Never used Tobacco 01/16/25 09:22 e-Cigarette/Vaping Use Never Used 01/16/25 09:22 Depression Screening Interpretation: Negative Thrive Assessment: Date of Thrive Assessment Date Thrive assessed 07/23/24 01/16/25 09:22 Currently or been in a relationship where the following occur: No concerns reported Const General: no acute distress and alert HENMT Ears: TM's normal bilaterally and EAC's normal Throat: Yes posterior oropharynx normal and Yes tonsils normal Neck Neck: Yes supple and No lymphadenopathy Thyroid: Thyroid normal Chest Chest palpation & inspection: Pacemaker present Resp Auscultation: clear to auscultation bilaterally, no crackles, no rales and no wheezes Cardio Rate: regular rate Rhythm: abnormal rhythm irregularly irregular Heart sounds: no murmurs GI Palpation (GI): Soft to palpation and nontender Auscultation: normal bowel sounds General: Yes no CVA tenderness Back/Spine/Pelvis Back: no CVA tenderness Thoracic/Lumbar Spine: No lumbar spinal tenderness Skin Rashes: no rashes Extrem General: Yes no clubbing, cyanosis or edema Coding Level of Care Code Est Pt Level 4 (33423) Diagnoses Chronic atrial fibrillation I48.20 Anemia due to acute blood loss D62 Anemia type: other cause Other causes of anemia: acute posthemorrhagic Malignant neoplasm of esophagus, unspecified location C15.9 Malignant neoplasm of esophagus location: unspecified location History of anticoagulant therapy Z92.29 Superficial venous thrombosis of left arm I82.612 Time Spent (min) 38 Assessment & Plan Assessment & Plan (1) Chronic atrial fibrillation: Comment: S/P ICD placement; is currently rate-controlled Code(s): I48.20 - Chronic atrial fibrillation, unspecified Category: Medical Plan: Status post ICD placement, currently on rate control. The patient was on apixaban 5 mg b.i.d. but developed GI bleed 2nd to neoplasm of the esophagus. The patient apixaban was discontinued and aspirin has been placed on hold until future evaluation shows stability. Follow up with Cardiology as scheduled. (2) Anemia: Code(s): D64.9 - Anemia, unspecified Category: Medical Qualifiers: Anemia type: other cause Other causes of anemia: acute posthemorrhagic Qualified Code(s): D62 - Acute posthemorrhagic anemia Plan: The patient's anemia secondary to GI bleed was treated with a transfusion in the hospital. His hemoglobin was 8.4 g/dL three days prior to this visit. A CBC will be rechecked in one week to ensure his levels are stable and he is not having further bleeding. Aspirin remains on hold and will not be restarted until the hemoglobin is confirmed to be stable. The patient was instructed to monitor his stool for any signs of recurrence of bleeding, such as a dark color. CMP was ordered as well to monitor electrolytes and liver function. (3) Malignant neoplasm of esophagus: Code(s): C15.9 - Malignant neoplasm of esophagus, unspecified Category: Medical Qualifiers: Malignant neoplasm of esophagus location: unspecified location Qualified Code(s): C15.9 - Malignant neoplasm of esophagus, unspecified Plan: The patient was recently hospitalized and found to have a malignant-appearing fungating mass at the esophageal junction with an oozing ulceration. He was seen by GI, thoracic surgery, and oncology in the hospital. He will need to follow up with these specialists for definitive management, including possible chemotherapy. Referrals have been placed, and the patient was advised that the specialists' offices will contact him to schedule appointments. (4) History of anticoagulant therapy: Code(s): Z92.29 - Personal history of other drug therapy Category: Medical Plan: Eliquis was held due to the active GI bleed, per cardiology recommendation during hospitalization. Aspirin is also on hold, pending re-evaluation of hemoglobin stability. A Watchman device consult was discussed as a consideration for long-term stroke prevention, given the high bleeding risk. The patient was advised to call his bi architect, Dr. Horowitz, to check if he needs to be seen sooner than his currently scheduled March appointment. (5) Superficial venous thrombosis of left arm: Code(s): I82.612 - Acute embolism and thrombosis of superficial veins of left upper extremity Category: Medical Plan: The patient developed a superficial cephalic vein thrombosis in the left arm from a needle stick. This is considered superficial in nature and does not require anticoagulation. Orders: Orders Complete Blood Count Auto Diff 01/18/25 D64.9 - Anemia, unspecified, K92.2 - Gastrointestinal hemorrhage, unspecified Comprehensive Met. Panel 01/18/25 D64.9 - Anemia, unspecified, K92.2 - Gastrointestinal hemorrhage, unspecified
[2025-01-16 09:11] VITALS: BP 102/64; PULSE 54; RESP 18; TEMP 36.2; O2SAT 96; BMI 32.8
--- OUTSIDE RECORDS SUMMARY | 2025-01-16 10:10 | XMS_ITS | Patient Health Record ---
Author Organization [facility] Address [address] [place] [id number] Care Team Providers Care Aquaculture Farm Manager Name Role Phone Pawan Lane Jr [phone] Reason For Referral No Information Plan Of Treatment No Information
== END 2025-01-16 09:51 | disposition home or self-care (01) ==
LOC: HO.HMCH 09:04
PROVIDERS: PCP Internal Medicine
DX: I48.20 Chronic atrial fibrillation, unspecified (principal); D62 Acute posthemorrhagic anemia; C15.9 Malignant neoplasm of esophagus, unspecified; Z92.29 Personal history of other drug therapy; I82.612 Acute embolism and thrombosis of superficial veins of left upper extremity

== ENCOUNTER 2025-01-18 07:21 | Outpatient (REF) | payer OTHER, SELFPAY ==
--- OUTSIDE RECORDS SUMMARY | 2025-01-18 07:23 | XMS_ITS | Patient Health Record ---
Author Organization [facility] Address [address] [place] [id number] Care Team Providers Care Board Mill Supervisor Name Role Phone Pawan Lane Jr [phone] Reason For Referral No Information Plan Of Treatment No Information
[2025-01-18 07:39] LABS: MANUAL DIFF FLAG NO
[2025-01-18 08:03] LABS: Hematocrit 28.1 % (42.0-52.0); Hemoglobin 8.6 g/dl (14.0-18.0); Imm Gran Abs Auto 0.03 X10*3/uL (0.00-0.03); Imm Gran Pct Auto 0.6 % (0.0-0.4); Lymphocytes Absolute Auto 1.1 X10*3/uL (1.2-4.9); Mean Corpuscular HGB Conc 30.6 g/dl (31.0-36.0); Mean Corpuscular Hemoglobin 29.3 pg (27.0-33.0); Mean Corpuscular Volume 95.6 fL (80.0-98.0); NRBC Abs Auto 0.000 X10*3/uL (0.0-0.012); NRBC Pct Auto 0.0 /100WBC (0.0-0.2); Platelet Count 157 X10*3/uL (160-400); Red Blood Count 2.94 X10*6/uL (4.60-5.80); White Blood Count 5.1 X10*3/uL (4.8-10.8)
[2025-01-18 08:19] LABS: Appearance Urine Clear; Glucose Urine UA Negative (Negative); PH 6.5 (5.0-9.0); Specific Gravity - Urine 1.020 (1.005-1.025); UMIC TRIGGER UACC YES
[2025-01-18 08:31] LABS: Alanine Aminotransferase 12 U/L (0-40); Albumin Level 3.9 g/dL (3.5-5.0); Alkaline Phosphatase 71 U/L (39-117); Anion Gap 11 (12-20); Aspartate Amino Transferase 23 U/L (5-37); Blood Urea Nitrogen 12 mg/dL (9-16); Calcium 9.0 mg/dL (8.4-10.2); Carbon Dioxide 27 mmol/L (22-29); Chloride 108 mmol/L (96-108); Cholesterol 112 mg/dL (<200); Estimated Glomerular Filt Rate > 60; HDL Cholesterol 43 mg/dL (>40); Potassium 4.0 mmol/L (3.3-5.1); Sodium 142 mmol/L (135-145); Total Protein 6.6 g/dL (6.5-8.0); Triglycerides 47 mg/dL (<150)
[2025-01-18 09:26] LABS: Free T4 (Free Thyroxine) 1.13 ng/dL (0.71-1.85)
== END 2025-01-18 07:22 | disposition home or self-care (01) ==
LOC: HO.LAB 07:21
PROVIDERS: PCP Internal Medicine; Visit Provider Internal Medicine
DX: E78.00 Pure hypercholesterolemia, unspecified (principal); D64.9 Anemia, unspecified; E55.9 Vitamin D deficiency, unspecified; K92.2 Gastrointestinal hemorrhage, unspecified
CPT/HCPCS: 36415; 80053; 80061; 81001; 82306; 84439; 84443; 85025

== ENCOUNTER 2025-01-23 06:53 | Outpatient (REF) | payer OTHER, SELFPAY ==
--- OUTSIDE RECORDS SUMMARY | 2025-01-23 06:56 | XMS_ITS | Patient Health Record ---
Author Organization [facility] Address [address] [place] [id number] Care Team Providers Care Cone Marker Name Role Phone Pawan Lane Jr Reason For Referral No Information Plan Of Treatment No Information
[2025-01-23 07:39] LABS: Appearance Urine Clear; Glucose Urine UA Negative (Negative); PH 6.5 (5.0-9.0); Specific Gravity - Urine 1.020 (1.005-1.025); UMIC TRIGGER UACC YES
== END 2025-01-23 06:54 | disposition home or self-care (01) ==
LOC: HO.LAB 06:53
PROVIDERS: PCP Internal Medicine
DX: R30.0 Dysuria (principal)
CPT/HCPCS: 81001